=== PATIENT | female | born 1945 | race Caucasian/White ===

== ENCOUNTER 2022-11-20 01:23 | Outpatient (REF) | payer MEDICARE, MEDICAID, SELFPAY ==
[2022-11-20 07:52] LABS: Basophils Percent Auto 0.5 % (0.2-2.0); Eosinophils Absolute Auto 0.3 10^3/uL (0.0-0.7); Eosinophils Percent Auto 5.7 % (0.9-7.0); Hematocrit 40.2 % (36.0-48.0); Hemoglobin 12.9 g/dL (12.0-16.0); Immature Granulocytes Abs Auto 0.01 10^3/uL (0.00-0.03); Immature Granulocytes Pct Auto 0.2 % (0.0-0.5); Lymphocytes Absolute Auto 1.4 10^3/uL (1.2-3.8); Mean Corpuscular HGB Conc 32.1 g/dL (29.9-35.2); Mean Corpuscular Hemoglobin 30.9 pg (26.7-34.0); Mean Corpuscular Volume 96.4 fL (81.0-99.0); Mean Platelet Volume 11.1 fL (9.5-13.5); Monocytes Absolute Auto 0.5 10^3/uL (0.3-0.8); Monocytes Percent Auto 11.5 % (1.7-12.0); Neutrophils Absolute Auto 2.2 10^3/uL (1.4-6.5); Neutrophils Percent Auto 51.1 % (43.0-75.0); Platelet Count 225 10^3/uL (150-450); Red Blood Count 4.17 10^6/uL (4.20-5.40); Red Cell Distribution Width 13.7 % (11.0-15.0); White Blood Count 4.4 10^3/uL (4.0-11.0)
[2022-11-20 08:59] LABS: Anion Gap 10.6; BUN Creatinine Ratio 18.9; Carbon Dioxide 28.6 mmol/L (21.0-32.0); Chloride 106 mmol/L (98-107); Estimated GFR (African America >60 (>=60); Estimated GFR (Non-African Ame 57 (>=60); Glucose 92 mg/dL (74-106); Potassium 4.2 mmol/L (3.5-5.1); Sodium 141 mmol/L (136-145)
== END 2022-11-20 01:24 | disposition home or self-care (01) ==
LOC: LAB 01:23
PROVIDERS: PCP Family Medicine; Visit Provider Family Medicine
DX: R60.0 Localized edema (principal); R27.9 Unspecified lack of coordination; R26.2 Difficulty in walking, not elsewhere classified; R41.841 Cognitive communication deficit; R13.12 Dysphagia, oropharyngeal phase; M54.50 Low back pain, unspecified; R29.3 Abnormal posture; F02.C2 Dementia in other diseases classified elsewhere, severe, with psychotic disturbance; E44.1 Mild protein-calorie malnutrition
CPT/HCPCS: 36415; 80048; 83880; 85025

== ENCOUNTER 2023-05-02 08:58 | Outpatient (REF) | payer MEDICARE, MEDICAID, SELFPAY ==
[2023-05-02 10:38] LABS: Bilirubin Urine MODERATE (NEGATIVE); Blood Urine TRACE-I (NEGATIVE); Clarity Urine CLEAR (CLEAR); Color Urine DK. YELLOW (YELLOW); Glucose Urine UA NEGATIVE (NEGATIVE); Ketones Urine TRACE mg/dL (NEGATIVE); Leukocyte Esterase Urine NEGATIVE (NEGATIVE); Nitrite Urine NEGATIVE (NEGATIVE); Protein Urine 30 mg/dL (NEG/TRACE); Specific Gravity Urine >=1.030 (1.005-1.025); Urobilinogen Urine 0.2 EU/dL (0.2-1.0); pH Urine 5.5 (5.0-9.0)
[2023-05-02 10:39] LABS: Urine Microscopic Indicated YES
[2023-05-02 11:14] LABS: Bacteria Urine NONE SEEN #/HPF (NONE SEEN); Mucus Urine LARGE (NONE SEEN); Squamous Epithelial Cell Urine FEW #/LPF (NONE/RARE); WBC Urine 0-2 #/HPF (NONE SEEN)
[2023-05-02 11:15] LABS: Urine Culture Indicated NO
== END 2023-05-02 08:59 | disposition home or self-care (01) ==
LOC: LAB 08:58
PROVIDERS: PCP Family Medicine; Visit Provider Family Medicine
DX: R41.82 Altered mental status, unspecified (principal)
CPT/HCPCS: 81001

== ENCOUNTER 2023-09-17 00:59 | Outpatient (REF) | payer MEDICARE, MEDICAID, SELFPAY ==
--- OUTSIDE RECORDS SUMMARY | 2023-09-17 01:02 | XMS_ITS | CCD ---
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 Name Role Phone DR ESE GOLDBERG Primary Care Unavailable DR ESE GOLDBERG Admitting Unavailable DIAZ, DR ESE Garza Attending Unavailable DIAZ, DR ESE Garza Consulting Unavailable DR ESE GOLDBERG Primary Care Unavailable LOLA RAMIRES Admitting Unavailable LOLA RAMIRES Attending LOLA Gomez Consulting Unavailable DR ESE GOLDBERG Primary Care Unavailable DR ESE GOLDBERG Admitting Unavailable DIAZ, DR ESE Garza Attending Unavailable DIAZ, DR ESE Garza Consulting Unavailable Ese Goldberg Allergies Allergy Classification Reported Allergen(s) Allergy Type Date of Onset Reaction(s) Facility (1 source) Penicillins Drug allergy (disorder) 11-16-2014 [facility] Medications Current Medications Medication Drug Class(es) Dates Sig (Normalized) Sig (Original) [facility] Aspirin 81 MG (8 sources) take 1 tablet by mouth once daily clonazePAM 0.5 mg oral tablet (8 sources) Benzodiazepine Start: 05-16-2023 clonazePAM 0.5 MG 0.25mg po qam and 0.5mg po qhs Orally BID for 30 days May, Active Start: 03-14-2023 clonazePAM 0.5 MG 0.25mg po qam and 0.5mg po qhs Orally BID Mar, Active Start: 02-07-2023 clonazePAM 0.5 MG 0.25mg po qam and 0.5mg po qhs Orally BID Feb, Active Start: 10-04-2022 clonazePAM 0.5 MG 0.25mg po qam and 0.5mg po qhs Orally BID for 30 days September, Active losartan potassium 50 mg oral tablet (8 sources) Angiotensin 2 Receptor Marichuy Start: 11-09-2010 take 1 tablet by mouth every twenty-four hours Losartan Potassium 50 MG 1 tablet Orally Once a day Nov, Active simvastatin 40 mg oral tablet (8 sources) HMG-CoA Reductase Inhibitor Start: 11-09-2010 Problems Problem Classification Problem Date Documented Date Episodic/Chronic Anxiety disorders (9 sources) Generalized anxiety disorder; Translations: [Generalized anxiety disorder] Chronic Disorders of lipid metabolism (12 sources) Hyperlipidemia, unspecified; Translations: [Pure hypercholesterolemia] Onset: 07-19-2022 Chronic Epilepsy; convulsions (8 sources) Seizure disorder; Translations: [Seizure disorder NOS] Episodic Esophageal disorders (8 sources) Gastroesophageal reflux disease; Translations: [GERD [Gastroesophageal reflux disease]] Chronic Essential hypertension (20 sources) Essential (primary) hypertension; Translations: [Hypertensive disorder] Onset: 12-13-2021 Chronic Malaise and fatigue (4 sources) Fatigue; Translations: [Other fatigue] Episodic Mood disorders (15 sources) Recurrent major depression in partial remission; Translations: [Major depressive disorder, recurrent, in partial remission] Chronic Nutritional deficiencies (1 source) Mild protein-calorie malnutrition; Translations: [MILD PROTEIN-CALORIE MALNUTRITION] Onset: 07-24-2022 Chronic Osteoarthritis (8 sources) Osteoarthritis; Translations: [Osteoarthrosis, unspecified whether generalized or localized, site unspecified] Chronic Other skin disorders (8 sources) Inflammatory dermatosis; Translations: [DERMATITIS NEC] Episodic Residual codes; unclassified (4 sources) Edema, unspecified; Translations: [EDEMA UNSPECIFIED] Onset: 12-14-2021 Episodic Schizophrenia and other psychotic disorders (9 sources) Chronic schizoaffective schizophrenia; Translations: [Schizoaffective disorder, unspecified] Chronic Spondylosis; intervertebral disc disorders; other back problems (16 sources) Degeneration of lumbar intervertebral disc; Translations: [DDD-Lumbar spine] Chronic Spondylosis; intervertebral disc disorders; other back problems (8 sources) Backache; Translations: [Back Pain] Episodic Unclassified (1 source) COUGH, UNSPECIFIED; Translations: [COUGH, UNSPECIFIED] Onset: 12-14-2021 Results Test Name Value Interpretation Reference Range Facil ity CBC AUTO DIFFon 08-18-2022 BASO # 0.0 103/ul Normal 0.0-0.1 [facility] Comment on above: Performed By: #### C BC #### [facility] [address] [place] [address] Dr. Donovan Curtis Basophils/100 WBC (Bld) 0.6 % Normal 0.2-2.0 [facility] Comment on above: Performed By: #### C BC #### [facility] [address] [place] [address] Dr. Donovan Curtis EO # 0.3 103/ul Normal 0.0-0.7 [facility] Comment on above: Performed By: #### C BC #### [facility] [address] [place] [address] Dr. Donovan Curtis Eosinophils/100 WBC (Bld) 6.3 % Normal 0.9-7.0 [facility] Comment on above: Performed By: #### C BC #### [facility] [address] [place] [address] Dr. Donovan Curtis Erythrocyte distribution width (RBC) [Ratio] 13.7 % Normal 11.0-15.0 [facility] Comment on above: Performed By: #### C BC #### [facility] [address] [place] [address] Dr. Donovan Curtis Hematocrit (Bld) [Volume fraction] 41.0 % Normal 36.0-48.0 [facility] Comment on above: Performed By: #### C BC #### [facility] [address] [place] [address] Dr. Donovan Curtis Hemoglobin (Bld) [Mass/Vol] 13.1 g/dL Normal 12.0-16.0 [facility] Comment on above: Performed By: #### C BC #### [facility] [address] [place] [address] Dr. Donovan Curtis IG # 0.01 10e3/ul Normal 0.00-0.03 [facility] Comment on above: Performed By: #### C BC #### [facility] [address] [place] [address] Dr. Donovan Curtis IG % 0.2 % Normal 0.0-0.5 [facility] Comment on above: Performed By: #### C BC #### [facility] [address] [place] [address] Dr. Donovan Curtis LYMPH # 1.3 103/ul Normal 1.2-3.8 [facility] Comment on above: Performed By: #### C BC #### [facility] [address] [place] [address] Dr. Donovan Curtis Lymphocytes/100 WBC (Bld) 25.6 % Normal 20.5-60.0 [facility] Comment on above: Performed By: #### C BC #### [facility] [address] [place] [address] Dr. Donovan Curtis MANUAL DIFF REQ NO Normal [facility] Comment on above: Performed By: #### C BC #### [facility] [address] [place] [address] Dr. Donovan Curtis MCH (RBC) [Entitic mass] 30.9 pg Normal 26.7-34.0 [facility] Comment on above: Performed By: #### C BC #### [facility] [address] [place] [address] Dr. Donovan Curtis MCHC (RBC) [Mass/Vol] 32.0 g/dL Normal 29.9-35.2 [facility] Comment on above: Performed By: #### C BC #### [facility] [address] [place] [address] Dr. Donovan Curtis MCV (RBC) [Entitic vol] 96.7 fL Normal 81.0-99.0 [facility] Comment on above: Performed By: #### C BC #### [facility] [address] [place] [address] Dr. Donovan Curtis MONO # 0.6 103/ul Normal 0.3-0.8 [facility] Comment on above: Performed By: #### C BC #### [facility] [address] [place] [address] Dr. Donovan Curtis Monocytes/100 WBC (Bld) 11.2 % Normal 1.7-12.0 [facility] Comment on above: Performed By: #### C BC #### [facility] [address] [place] [address] Dr. Donovan Curtis NEUT # 2.8 103/ul Normal 1.4-6.5 [facility] Comment on above: Performed By: #### C BC #### [facility] [address] [place] [address] Dr. Donovan Curtis Neutrophils/100 WBC (Bld) 56.1 % Normal 43.0-75.0 [facility] Comment on above: Performed By: #### C BC #### [facility] [address] [place] [address] Dr. Donovan Curtis Platelet mean volume (Bld) [Entitic vol] 11.9 fL Normal 9.5-13.5 [facility] Comment on above: Performed By: #### C BC #### [facility] [address] [place] [address] Dr. Donovan Curtis PLT 221 103/ul Normal 150-450 [facility] Comment on above: Performed By: #### C BC #### [facility] [address] [place] [address] Dr. Donovan Curtis RBC 4.24 106/ul Normal 4.20-5.40 [facility] Comment on above: Performed By: #### C BC #### [facility] [address] [place] [address] Dr. Donovan Curtis WBC 5.1 103/ul Normal 4.0-11.0 [facility] Comment on above: Performed By: #### C BC #### [facility] [address] [place] [address] Dr. Donovan Curtis PROF CHEM 8 (BAS METB)on Anion gap [Moles/Vol] 14.8 mmol/L Normal [facility] Comment on above: Performed By: #### B MP #### [facility] [address] [place] [address] Dr. Donovan Curtis Calcium [Mass/Vol] 10.1 mg/dL Normal 8.5-10.1 [facility] Comment on above: Performed By: #### B MP #### [facility] [address] [place] [address] Dr. Donovan Curtis Chloride [Moles/Vol] 105 mmol/L Normal 98-107 [facility] Comment on above: Performed By: #### B MP #### [facility] [address] [address] [address] Donovan Curtis CO2 [Moles/Vol] 26.2 mmol/L Normal 21.0-32.0 [facility] Comment on above: Performed By: #### B MP #### [facility] [address] [address] [address] Donovan Curtis Creatinine [Mass/Vol] 1.05 mg/dL Critically high 0.55-1.02 [facility] Comment on above: Performed By: #### B MP #### [facility] [address] [address] [address] Donovan Curtis EGFR-AF CYPRIOT >60 Normal >=60 [facility] Comment on above: Performed By: #### B MP #### [facility] [address] [address] [address] Donovan Curtis EGFR-NON AF CYPRIOT 51 mL/min/1.73m2 Critically low >=60 [facility] Comment on above: Performed By: #### B MP #### [facility] [address] [address] [address] Donovan Curtis Glucose [Mass/Vol] 89 mg/dL Normal 74-106 [facility] Comment on above: Performed By: #### B MP #### [facility] [address] [address] [address] Donovan Curtis Potassium [Moles/Vol] 4.0 mmol/L Normal 3.5-5.1 [facility] Comment on above: Performed By: #### B MP #### [facility] [address] [address] [address] Donovan Curtis Sodium [Moles/Vol] 142 mmol/L Normal 136-145 [facility] Comment on above: Performed By: #### B MP #### [facility] [address] [address] [address] Donovan Curtis Urea nitrogen [Mass/Vol] 18.0 mg/dL Normal 7.0-18.0 [facility] Comment on above: Performed By: #### B MP #### [facility] [address] [place] [address] Dr. Donovan Curtis Urea nitrogen/Creatinine [Mass ratio] 17.1 mg/mg Normal [facility] Comment on above: Performed By: #### B MP #### [facility] [address] [place] [address] Dr. Donovan Curtis CBC AUTO DIFFon 07-19-2022 BASO # 0.0 103/ul Normal 0.0-0.1 [facility] Comment on above: Performed By: #### C BC #### [facility] [address] [place] [address] Dr. Donovan Curtis Basophils/100 WBC (Bld) 0.6 % Normal 0.2-2.0 [facility] Comment on above: Performed By: #### C BC #### [facility] [address] [place] [address] Dr. Donovan Curtis EO # 0.3 103/ul Normal 0.0-0.7 [facility] Comment on above: Performed By: #### C BC #### [facility] [address] [place] [address] Dr. Donovan Curtis Eosinophils/100 WBC (Bld) 5.1 % Normal 0.9-7.0 [facility] Comment on above: Performed By: #### C BC #### [facility] [address] [place] [address] Dr. Donovan Curtis Erythrocyte distribution width (RBC) [Ratio] 13.8 % Normal 11.0-15.0 [facility] Comment on above: Performed By: #### C BC #### [facility] [address] [place] [address] Dr. Donovan Crutis Hematocrit (Bld) [Volume fraction] 34.5 % Critically low 36.0-48.0 [facility] Comment on above: Performed By: #### C BC #### [facility] [address] [place] [address] Dr. Donovan Curtis Hemoglobin (Bld) [Mass/Vol] 11.4 g/dL Critically low 12.0-16.0 [facility] Comment on above: Performed By: #### C BC #### [facility] [address] [address] [address] Donovan Curtis IG # 0.01 10e3/ul Normal 0.00-0.03 [facility] Comment on above: Performed By: #### C BC #### [facility] [address] [place] [address] Dr. Donovan Curtis IG % 0.2 % Normal 0.0-0.5 [facility] Comment on above: Performed By: #### C BC #### [facility] [address] [place] [address] Dr. Donovan Curtis LYMPH # 1.5 103/ul Normal 1.2-3.8 [facility] Comment on above: Performed By: #### C BC #### [facility] [address] [place] [address] Dr. Donovan Curtis Lymphocytes/100 WBC (Bld) 29.8 % Normal 20.5-60.0 [facility] Comment on above: Performed By: #### C BC #### [facility] [address] [place] [address] Dr. Donovan Curtis MANUAL DIFF REQ NO Normal [facility] Comment on above: Performed By: #### C BC #### [facility] [address] [place] [address] Dr. Donovan Curtis MCH (RBC) [Entitic mass] 31.1 pg Normal 26.7-34.0 [facility] Comment on above: Performed By: #### C BC #### [facility] [address] [place] [address] Dr. Donovan Curtis MCHC (RBC) [Mass/Vol] 33.0 g/dL Normal 29.9-35.2 [facility] Comment on above: Performed By: #### C BC #### [facility] [address] [place] [address] Dr. Donovan Curtis MCV (RBC) [Entitic vol] 94.0 fL Normal 81.0-99.0 [facility] Comment on above: Performed By: #### C BC #### [facility] [address] [address] [address] Donovan Curtis MONO # 0.7 103/ul Normal 0.3-0.8 [facility] Comment on above: Performed By: #### C BC #### [facility] [address] [place] [address] Dr. Donovan Curtis Monocytes/100 WBC (Bld) 13.6 % Critically high 1.7-12.0 [facility] Comment on above: Performed By: #### C BC #### [facility] [address] [place] [address] Dr. Donovan Curtis NEUT # 2.5 103/ul Normal 1.4-6.5 [facility] Comment on above: Performed By: #### C BC #### [facility] [address] [place] [address] Dr. Donovan Curtis Neutrophils/100 WBC (Bld) 50.7 % Normal 43.0-75.0 [facility] Comment on above: Performed By: #### C BC #### [facility] [address] [place] [address] Dr. Donovan Curtis Platelet mean volume (Bld) [Entitic vol] 11.3 fL Normal 9.5-13.5 [facility] Comment on above: Performed By: #### C BC #### [facility] [address] [place] [address] Dr. Donovan Curtis PLT 179 103/ul Normal 150-450 [facility] Comment on above: Performed By: #### C BC #### [facility] [address] [place] [address] Dr. Donovan Curtis RBC 3.67 106/ul Critically low 4.20-5.40 [facility] Comment on above: Performed By: #### C BC #### [facility] [address] [place] [address] Dr. Donovan Curtis WBC 4.9 103/ul Normal 4.0-11.0 [facility] Comment on above: Performed By: #### C BC #### [facility] [address] [place] [address] Dr. Donovan Curtis LIPID PROFILEon 07-19-2022 CHOL-HDL RATIO NORM SEE BELOW Normal [facility] Comment on above: Result Comment: 3.3 - 4.4 LOW RISK 4.4 - 7.1 AVERAGE RISK 7.1 - 11.0 MODERATE RISK >11.0 HIGH RISK Performed By: #### L IPID, CMP #### [facility] [address] [address] [address] Donovan Curtis Cholesterol [Mass/Vol] 105 mg/dL Normal <=200 [facility] Comment on above: Performed By: #### L IPID, CMP #### [facility] [address] [address] [address] Donovan Curtis Cholesterol in HDL [Mass/Vol] 45 mg/dL Normal 40-60 [facility] Comment on above: Performed By: #### L IPID, CMP #### [facility] [address] [address] [address] Donovan Curtis Cholesterol in LDL [Mass/Vol] 42.2 mg/dL Normal [facility] Comment on above: Performed By: #### L IPID, CMP #### [facility] [address] [address] [address] Donovan Curtis Cholesterol.total/C holesterol in HDL [Mass ratio] 2.3 {ratio} Normal [facility] Comment on above: Performed By: #### L IPID, CMP #### [facility] [address] [address] [address] Donovan Curtis HDL NORMAL > or = 60 mg/dl - LO W CARDIOVASCULAR RISK <40 mg/dl - HIGH CARDIOVASCULAR RISK Normal [facility] Comment on above: Performed By: #### L IPID, CMP #### [facility] [address] [address] [address] Donovan Curtis LDL CALC NORMAL SEE BELOW Normal [facility] Comment on above: Result Comment: <100 mg/dl OPTIMAL 100 - 129 mg/dl NEAR OR ABOVE OPTIMAL 130 - 159 mg/dl BORDERLINE HIGH 160 - 189 mg/dl HIGH >190 mg/dl VERY HIGH Performed By: #### L IPID, CMP #### [facility] [address] [address] [address] Donovan Curtis Triglyceride [Mass/Vol] 89 mg/dL Normal <=150 [facility] Comment on above: Performed By: #### L IPID, CMP #### [facility] [address] [place] [address] Dr. Donovan Curtis VLDL CALC 17.8 mg/dL Normal [facility] Comment on above: Performed By: #### L IPID, CMP #### [facility] [address] [place] [address] Dr. Donovan Curtis PROF 14(COMP METB)on 023 Albumin [Mass/Vol] 3.1 g/dL Critically low 3.4-5.0 [facility] Comment on above: Performed By: #### L IPID, CMP #### [facility] [address] [place] [address] Dr. Donovan Curtis Albumin/Globulin [Mass ratio] 1.1 {ratio} Normal [facility] Comment on above: Performed By: #### L IPID, CMP #### [facility] [address] [place] [address] Dr. Donovan Curtis ALP [Catalytic activity/Vol] 66 U/L Normal 46-116 [facility] Comment on above: Performed By: #### L IPID, CMP #### [facility] [address] [place] [address] Dr. Donovan Curtis ALT [Catalytic activity/Vol] 16 U/L Normal 14-59 [facility] Comment on above: Performed By: #### L IPID, CMP #### [facility] [address] [place] [address] Dr. Donovan Curtis Anion gap [Moles/Vol] 12.5 mmol/L Normal [facility] Comment on above: Performed By: #### L IPID, CMP #### [facility] [address] [place] [address] Dr. Donovan Curtis AST [Catalytic activity/Vol] 23 U/L Normal 15-37 [facility] Comment on above: Performed By: #### L IPID, CMP #### [facility] [address] [place] [address] Dr. Donovan Curtis Bilirubin [Mass/Vol] 1.0 mg/dL Normal 0.2-1.0 [facility] Comment on above: Performed By: #### L IPID, CMP #### [facility] [address] [address] [address] Donovan Curtis Calcium [Mass/Vol] 9.8 mg/dL Normal 8.5-10.1 [facility] Comment on above: Performed By: #### L IPID, CMP #### [facility] [address] [place] [address] Dr. Donovan Curtis Chloride [Moles/Vol] 109 mmol/L Critically high 98-107 [facility] Comment on above: Performed By: #### L IPID, CMP #### [facility] [address] [place] [address] Dr. oDnovan Curtis CO2 [Moles/Vol] 26.8 mmol/L Normal 21.0-32.0 [facility] Comment on above: Performed By: #### L IPID, CMP #### [facility] [address] [place] [address] Dr. Donovan Curtis Creatinine [Mass/Vol] 0.92 mg/dL Normal 0.55-1.02 [facility] Comment on above: Performed By: #### L IPID, CMP #### [facility] [address] [place] [address] Dr. Donovan Curtis EGFR-AF CYPRIOT >60 Normal >=60 [facility] Comment on above: Performed By: #### L IPID, CMP #### [facility] [address] [place] [address] Dr. Donovan Curtis EGFR-NON AF CYPRIOT 59 mL/min/1.73m2 Critically low >=60 [facility] Comment on above: Performed By: #### L IPID, CMP #### [facility] [address] [place] [address] Dr. Donovan Curtis Globulin (S) [Mass/Vol] 2.7 g/dL Normal [facility] Comment on above: Performed By: #### L IPID, CMP #### [facility] [address] [place] [address] Dr. Donovan Curtis Glucose [Mass/Vol] 87 mg/dL Normal 74-106 [facility] Comment on above: Performed By: #### L IPID, CMP #### [facility] [address] [place] [address] Dr. Donovan Curtis Potassium [Moles/Vol] 4.3 mmol/L Normal 3.5-5.1 [facility] Comment on above: Performed By: #### L IPID, CMP #### [facility] [address] [place] [address] Dr. Donovan Curtis Protein [Mass/Vol] 5.8 g/dL Critically low 6.4-8.2 [facility] Comment on above: Performed By: #### L IPID, CMP #### [facility] [address] [place] [address] Dr. Donovan Curtis Sodium [Moles/Vol] 144 mmol/L Normal 136-145 [facility] Comment on above: Performed By: #### L IPID, CMP #### [facility] [address] [place] [address] Dr. Donovan Curtis Urea nitrogen [Mass/Vol] 22.0 mg/dL Critically high 7.0-18.0 [facility] Comment on above: Performed By: #### L IPID, CMP #### [facility] [address] [place] [address] Dr. Donovan Curtis Urea nitrogen/Creatinine [Mass ratio] 23.9 mg/mg Normal [facility] Comment on above: Performed By: #### L IPID, CMP #### [facility] [address] [place] [address] Dr. Donovan Curtis BNPon 12-13-2021 Natriuretic peptide B (Bld) [Mass/Vol] 190.0 pg/mL Normal <=1,800.0 [facility] Comment on above: Performed By: #### B FLOW MANAGER, BMP #### [facility] [address] [place] [address] Dr. Donovan Curtis CBC AUTO DIFFon 12-13-2021 BASO # 0.0 103/ul Normal 0.0-0.1 [facility] Comment on above: Performed By: #### C BC #### [facility] [address] [place] [address] Dr. Donovan Curtis Basophils/100 WBC (Bld) 0.5 % Normal 0.2-2.0 [facility] Comment on above: Performed By: #### C BC #### [facility] [address] [place] [address] Dr. Donovan Curtis EO # 0.2 103/ul Normal 0.0-0.7 [facility] Comment on above: Performed By: #### C BC #### [facility] [address] [place] [address] Dr. Donovan Curtis Eosinophils/100 WBC (Bld) 2.9 % Normal 0.9-7.0 [facility] Comment on above: Performed By: #### C BC #### [facility] [address] [place] [address] Dr. Donovan Curtis Erythrocyte distribution width (RBC) [Ratio] 14.1 % Normal 11.0-15.0 [facility] Comment on above: Performed By: #### C BC #### [facility] [address] [place] [address] Dr. Donovan Curtis Hematocrit (Bld) [Volume fraction] 42.0 % Normal 36.0-48.0 [facility] Comment on above: Performed By: #### C BC #### [facility] [address] [place] [address] Dr. Donovan Curtis Hemoglobin (Bld) [Mass/Vol] 13.1 g/dL Normal 12.0-16.0 [facility] Comment on above: Performed By: #### C BC #### [facility] [address] [place] [address] Dr. Donovan Curtis IG # 0.01 10e3/ul Normal 0.00-0.03 [facility] Comment on above: Performed By: #### C BC #### [facility] [address] [place] [address] Dr. Donovan Curtis IG % 0.2 % Normal 0.0-0.5 [facility] Comment on above: Performed By: #### C BC #### [facility] [address] [place] [address] Dr. Donovan Curtis LYMPH # 1.2 103/ul Normal 1.2-3.8 [facility] Comment on above: Performed By: #### C BC #### [facility] [address] [place] [address] Dr. Donovan Curtis Lymphocytes/100 WBC (Bld) 20.5 % Normal 20.5-60.0 [facility] Comment on above: Performed By: #### C BC #### [facility] [address] [place] [address] Dr. Donovan Curtis MANUAL DIFF REQ NO Normal [facility] Comment on above: Performed By: #### C BC #### [facility] [address] [place] [address] Dr. Donovan Curtis MCH (RBC) [Entitic mass] 29.7 pg Normal 26.7-34.0 [facility] Comment on above: Performed By: #### C BC #### [facility] [address] [place] [address] Dr. Donovan Curtis MCHC (RBC) [Mass/Vol] 31.2 g/dL Normal 29.9-35.2 [facility] Comment on above: Performed By: #### C BC #### [facility] [address] [place] [address] Dr. Donovan Curtis MCV (RBC) [Entitic vol] 95.2 fL Normal 81.0-99.0 [facility] Comment on above: Performed By: #### C BC #### [facility] [address] [place] [address] Dr. Donovan Curtis MONO # 0.7 103/ul Normal 0.3-0.8 [facility] Comment on above: Performed By: #### C BC #### [facility] [address] [place] [address] Dr. Donovan Curtis Monocytes/100 WBC (Bld) 11.7 % Normal 1.7-12.0 [facility] Comment on above: Performed By: #### C BC #### [facility] [address] [place] [address] Dr. Donovan Curtis NEUT # 3.7 103/ul Normal 1.4-6.5 [facility] Comment on above: Performed By: #### C BC #### [facility] [address] [place] [address] Dr. Donovan Curtis Neutrophils/100 WBC (Bld) 64.2 % Normal 43.0-75.0 [facility] Comment on above: Performed By: #### C BC #### [facility] [address] [place] [address] Dr. Donovan Curtis Platelet mean volume (Bld) [Entitic vol] 11.2 fL Normal 9.5-13.5 [facility] Comment on above: Performed By: #### C BC #### [facility] [address] [place] [address] Dr. Donovan Curtis PLT 240 103/ul Normal 150-450 [facility] Comment on above: Performed By: #### C BC #### [facility] [address] [place] [address] Dr. Donovan Curtis RBC 4.41 106/ul Normal 4.20-5.40 [facility] Comment on above: Performed By: #### C BC #### [facility] [address] [place] [address] Dr. Donovan Curtis WBC 5.8 103/ul Normal 4.0-11.0 [facility] Comment on above: Performed By: #### C BC #### [facility] [address] [place] [address] Dr. Donovan Curtis PROF CHEM 8 (BAS METB)on Anion gap [Moles/Vol] 13.7 mmol/L Normal [facility] Comment on above: Performed By: #### B FLOW MANAGER, BMP #### [facility] [address] [place] [address] Dr. Donovan Curtis Calcium [Mass/Vol] 10.3 mg/dL Critically high 8.5-10.1 [facility] Comment on above: Performed By: #### B FLOW MANAGER, BMP #### [facility] [address] [address] [address] Donovan Curtis Chloride [Moles/Vol] 104 mmol/L Normal 98-107 [facility] Comment on above: Performed By: #### B FLOW MANAGER, BMP #### [facility] [address] [address] [address] Donovan Curtis CO2 [Moles/Vol] 26.6 mmol/L Normal 21.0-32.0 [facility] Comment on above: Performed By: #### B FLOW MANAGER, BMP #### [facility] [address] [address] [address] Donovan Curtis Creatinine [Mass/Vol] 1.04 mg/dL Critically high 0.55-1.02 [facility] Comment on above: Performed By: #### B FLOW MANAGER, BMP #### [facility] [address] [address] [address] Donovan Curtis EGFR-AF CYPRIOT >60 Normal >=60 [facility] Comment on above: Performed By: #### B FLOW MANAGER, BMP #### [facility] [address] [address] [address] Donovan Curtis EGFR-NON AF CYPRIOT 51 mL/min/1.73m2 Critically low >=60 [facility] Comment on above: Performed By: #### B FLOW MANAGER, BMP #### [facility] [address] [address] [address] Donovan Curtis Glucose [Mass/Vol] 74 mg/dL Normal 74-106 [facility] Comment on above: Performed By: #### B FLOW MANAGER, BMP #### [facility] [address] [address] [address] Donovan Curtis Potassium [Moles/Vol] 4.3 mmol/L Normal 3.5-5.1 [facility] Comment on above: Performed By: #### B FLOW MANAGER, BMP #### [facility] [address] [address] [address] Donovan Curtis Sodium [Moles/Vol] 140 mmol/L Normal 136-145 [facility] Comment on above: Performed By: #### B FLOW MANAGER, BMP #### [facility] [address] [place], [place] [address] Dr. Donovan Curtis Urea nitrogen [Mass/Vol] 19.0 mg/dL Critically high 7.0-18.0 [facility] Comment on above: Performed By: #### B FLOW MANAGER, BMP #### [facility] [address] [place], [place] [address] Dr. Donovan Curtis Urea nitrogen/Creatinine [Mass ratio] 18.3 mg/mg Normal [facility] Comment on above: Performed By: #### B FLOW MANAGER, BMP #### [facility] [address] [place], [place] [address] Dr. Donovan Curtis Encounters Encounter Date Encounter Type Care Provider Facility Start: 05-18-2023 End: 05-18-2023 ambulatory Ese Goldberg Other [facility] Other Start: 05-18-2023 Telephone encounter Ese Goldberg [facility] Start: 05-16-2023 End: 05-16-2023 ambulatory Ese Goldberg Other [facility] Other Start: 05-16-2023 Telephone encounter Ese Goldberg [facility] Start: 05-01-2023 End: 05-01-2023 ambulatory Ese Goldberg Other [facility] Other Start: 05-01-2023 Sbsq nursing facil care/day minor complj 15 min Ese Goldberg [facility] Start: 03-14-2023 End: 03-14-2023 ambulatory Ese Goldberg Other [facility] Other Start: 03-14-2023 Telephone encounter Ese Goldberg [facility] Start: 02-13-2023 End: 02-13-2023 ambulatory Ese Goldberg Other [facility] Other Start: 02-13-2023 Sbsq nursing facil care/day minor complj 15 min Ese Goldberg [facility] Start: 02-07-2023 End: 02-07-2023 ambulatory Ese Goldberg Other [facility] Other Start: 02-07-2023 Telephone encounter Ese Goldberg [facility] Start: 11-29-2022 End: 11-29-2022 ambulatory Ese Goldberg Other [facility] Other Start: 11-29-2022 Sbs nursing facil care/day minor complj 15 min Ese Goldberg [facility] Start: 08-18-2022 End: 08-18-[address] ESE GOLDBERG Facility:[facility] Start: 07-19-2022 End: 07-19-[address] ESE GOLDBERG Facility:[facility] Start: 12-13-2021 End: 12-13-[address] ESE GOLDBERG Facility:[facility] Payers Date Payer Category Payer Medicare [id number] 1960 Medicaid [id number] 1960 Medicare [id number] 1945 Unknown [id number] 1945 Unknown [id number] 1945 Unknown [id number] Social History Date Type Detail Facility Sex Assigned At [facility] Other Evaluation note 05-18-2023 Note Date & Type Note Facility 05-18-2023 Evaluation note Encounter Date Diagnosis Assessment Notes May, Recurrent major depressive disorder, in partial remission (ICD-10 - F33.41) [facility] Other Evaluation note 05-16-2023 Note Date & Type Note Facility 05-16-2023 Evaluation note Encounter Date Diagnosis Assessment Notes May, Recurrent major depressive disorder, in partial remission (ICD-10 - F33.41) [facility] Other Evaluation note 05-01-2023 Note Date & Type Note Facility 05-01-2023 Evaluation note Encounter Date Diagnosis Assessment Notes Apr, Essential (primary) hypertension (ICD-10 - I10) Continue present med Apr, Other fatigue (ICD-10 - R53.83) d/w w nursing staff. Will check for COVID and UTI Apr, Recurrent major depressive disorder, in partial remission (ICD-10 - F33.41) stable on present med [facility] Other Evaluation note 03-14-2023 Note Date & Type Note Facility 03-14-2023 Evaluation note Encounter Date Diagnosis Assessment Notes Mar, Recurrent major depressive disorder, in partial remission (ICD-10 - F33.41) [facility] Other Evaluation note 02-13-2023 Note Date & Type Note Facility 02-13-2023 Evaluation note Encounter Date Diagnosis Assessment Notes Feb, Essential (primary) hypertension (ICD-10 - I10) Blood pressure remains well controlled at this time. Denies cardiac symptoms. Shows no signs or symptoms or poor control. Patient to continue with above medication and we will continue to monitor. Advised to pay attention to body and symptoms. Any developing patterns. Stay well hydrated. Feb, Recurrent major depressive disorder, in partial remission (ICD-10 - F33.41) Remains stable on current therapeutic dose. Patient is encouraged to stay active and remain involved. Try to keep themselves busy. Take medication as directed and we will continue to monitor. Feb, Dependent edema (ICD-10 - R60.9) Elevated legs. Reviewed medications at [facility]. [facility] Other Evaluation note 11-29-2022 Note Date & Type Note Facility 11-29-2022 Evaluation note Encounter Date Diagnosis Assessment Notes Nov, Chronic schizoaffective disorder (ICD-10 - F25.9) stable and unchanged. Nov, YANELIS (generalized anxiety disorder) (ICD-10 - F41.1) Unchanged with behaviors per nursing staff. Nov, Essential (primary) hypertension (ICD-10 - I10) Reviewed recent labs. Recheck in 6 months. Nov, Recurrent major depressive disorder, in partial remission (ICD-10 - F33.41) Stable on present medication Nov, Dependent edema (ICD-10 - R60.9) Recently evaluated labs and they are normal overall. Continue to encourage elevation. On moderate strength diuretic. [facility] Other Evaluation note Note Date & Type Note Facility Evaluation note No Information [facility] Other History general Narrative - Reported Note Date & Type Note Facility History general Narrative - Reported Type Medical History Borderline DM Medical History Hyperlipids Medical History HTN Medical History GERD Medical History Seizures Medical History DJD Surgical History oophorectomy 2004 [facility] Other Summary Purpose Family History No Family History Records Found Advance Directives No Advanced Directives Records Found Additional Source Comments INFORMATION SOURCE (unrecogn ized section and content) DATE CREATED AUTHOR 08/18/2022 [facility] REASON FOR VISIT (unrecogniz ed section and content) BCCrefillBCCBCCNo Informatio nBCCNo Informationrefill FOR RECORDS PERTAINING TO PATIENTS WHO ARE OR HAVE BEEN ENROLLED IN A CHEMICAL DEPENDENCY/SUBSTANCEABUSE PROGRAM, SOME INFORMATION MAY BE OMITTED. This clinical summary was aggregated from multiple sources. Caution should be exercised in using it in the provision of clinical care. This summary normalizes information from multiple sources, and as a consequence, information in this document may materially change the coding, format and clinical context of patient data. In addition, data may be omitted in some cases. CLINICAL DECISIONS SHOULD BE BASED ON THE PRIMARY CLINICAL RECORDS. [employer] provides no warranty or guarantee of the accuracy or completeness of information in this document.
[2023-09-17 09:02] LABS: Anion Gap 10.9; BUN Creatinine Ratio 23.2; Calcium 10.1 mg/dL (8.5-10.1); Carbon Dioxide 27.5 mmol/L (21.0-32.0); Chloride 107 mmol/L (98-107); Estimated GFR (African America >60 (>=60); Estimated GFR (Non-African Ame 54 (>=60); Glucose 85 mg/dL (74-106); Potassium 4.4 mmol/L (3.5-5.1); Sodium 141 mmol/L (136-145)
== END 2023-09-17 01:00 | disposition home or self-care (01) ==
LOC: LAB 00:59
PROVIDERS: PCP Family Medicine; Visit Provider Family Medicine
DX: I10 Essential (primary) hypertension (principal)
CPT/HCPCS: 36415; 80048

== ENCOUNTER 2023-11-28 08:16 | Outpatient (REF) | payer MEDICARE, MEDICAID, SELFPAY ==
--- OUTSIDE RECORDS SUMMARY | 2023-11-28 08:30 | XMS_ITS | CCD ---
Author Organization [facility] Care Team Providers Care Reiki Practitioner Name Role Phone DR ESE GOLDBERG Primary Care Unavailable ASHLYN, DR ESE Garza Admitting Unavailable ASHLYN, DR ESE Garza Attending Unavailable ASHLNY, DR ESE Garza Consulting Unavailable ASHLYN, DR ESE Garza Primary Care Unavailable LOLA RAMIRES Admitting Unavailable LOLA RAMIRES Attending Unavailable LOLA RAMIRES Consulting Unavailable ASHLYN, DR ESE Garza Primary Care Unavailable ASHLYN, DR ESE Garza Admitting Unavailable ASHLYN, DR ESE Garza Attending Unavailable ASHLYN, DR ESE Garza Consulting Unavailable Ese Goldberg Allergies Allergy Classification Reported Allergen(s) Allergy Type Date of Onset Reaction(s) Facility (1 source) Penicillins Drug allergy (disorder) 11-16-2014 [facility] Repository Medications Current Medications Medication Drug Class(es) [...] 08-18-2022 BASO # 0.0 103/ul Normal 0.0-0.1 [facility] Comment on above: Performed By: #### C BC #### [facility] [address] [place] [address] Dr. Donovan Curtis Basophils/100 WBC (Bld) 0.6 % Normal 0.2-2.0 [facility] Comment on above: Performed By: #### C BC #### [facility] [address] [place] [address] Dr. Donovan Curtis EO # 0.3 103/ul Normal 0.0-0.7 [facility] Comment on above: Performed By: #### C BC #### [facility] [address] [place] [address] Dr. Donovan Curtis Eosinophils/100 WBC (Bld) 6.3 % Normal 0.9-7.0 [facility] Comment on above: Performed By: #### C BC #### [facility] [address] [place] [address] Dr. Donovan Curtis Erythrocyte distribution width (RBC) [Ratio] 13.7 % Normal 11.0-15.0 [facility] Comment on above: Performed By: #### C BC #### [facility] [address] [place] [address] Dr. Donovan Curtis Hematocrit (Bld) [Volume fraction] 41.0 % Normal 36.0-48.0 [facility] Comment on above: Performed By: #### C BC #### [facility] [address] [place] [address] Dr. Donovan Curtis Hemoglobin (Bld) [Mass/Vol] 13.1 g/dL Normal 12.0-16.0 [facility] Comment on above: Performed By: #### C BC #### [facility] [address] [place] [address] Dr. Donovan Curtis IG # 0.01 10e3/ul Normal 0.00-0.03 [facility] Comment on above: Performed By: #### C BC #### [facility] [address] [place] [address] Dr. Donovan Curtis IG % 0.2 % Normal 0.0-0.5 [facility] Comment on above: Performed By: #### C BC #### [facility] [address] [place] [address] Dr. Donovan Curtis LYMPH # 1.3 103/ul Normal 1.2-3.8 [facility] Comment on above: Performed By: #### C BC #### [facility] [address] [place] [address] Dr. Donovan Curtis Lymphocytes/100 WBC (Bld) 25.6 % Normal 20.5-60.0 [facility] Comment on above: Performed By: #### C BC #### [facility] [address] [place] [address] Dr. Donovan Curtis MANUAL DIFF REQ NO Normal [facility] Comment on above: Performed By: #### C BC #### [facility] [address] [place] [address] Dr. Donovan Curtis MCH (RBC) [Entitic mass] 30.9 pg Normal 26.7-34.0 [facility] Comment on above: Performed By: #### C BC #### [facility] [address] [place] [address] Dr. Donovan Curtis MCHC (RBC) [Mass/Vol] 32.0 g/dL Normal 29.9-35.2 [facility] Comment on above: Performed By: #### C BC #### [facility] [address] [place] [address] Dr. Donovan Curtis MCV (RBC) [Entitic vol] 96.7 fL Normal 81.0-99.0 [facility] Comment on above: Performed By: #### C BC #### [facility] [address] [place] [address] Dr. Donovan Curtis MONO # 0.6 103/ul Normal 0.3-0.8 [facility] Comment on above: Performed By: #### C BC #### [facility] [address] [place] [address] Dr. Donovan Curtis Monocytes/100 WBC (Bld) 11.2 % Normal 1.7-12.0 [facility] Comment on above: Performed By: #### C BC #### [facility] [address] [place] [address] Dr. Donovan Curtis NEUT # 2.8 103/ul Normal 1.4-6.5 [facility] Comment on above: Performed By: #### C BC #### [facility] [address] [address] [address] Donovan Curtis Neutrophils/100 WBC (Bld) 56.1 % Normal 43.0-75.0 [facility] Comment on above: Performed By: #### C BC #### [facility] [address] [address] [address] Donovan Curtis Platelet mean volume (Bld) [Entitic vol] 11.9 fL Normal 9.5-13.5 [facility] Comment on above: Performed By: #### C BC #### [facility] [address] [place] [address] Dr. Donovan Curtis PLT 221 103/ul Normal 150-450 [facility] Comment on above: Performed By: #### C BC #### [facility] [address] [place] [address] Dr. Donovan Curtis RBC 4.24 106/ul Normal 4.20-5.40 [facility] Comment on above: Performed By: #### C BC #### [facility] [address] [place] [address] Dr. Donovan Curtis WBC 5.1 103/ul Normal 4.0-11.0 [facility] Comment on above: Performed By: #### C BC #### [facility] [address] [place] [address] Dr. Donovan Curtis PROF CHEM 8 (BAS METB)on Anion gap [Moles/Vol] 14.8 mmol/L Normal [facility] Comment on above: Performed By: #### B MP #### [facility] [address] [place] [address] Dr. Donovan Curtis Calcium [Mass/Vol] 10.1 mg/dL Normal 8.5-10.1 [facility] Comment on above: Performed By: #### B MP #### [facility] [address] [place] [address] Dr. Donovan Curtis Chloride [Moles/Vol] 105 mmol/L Normal 98-107 [facility] Comment on above: Performed By: #### B MP #### [facility] [address] [address] [address] Donovan Curtis CO2 [Moles/Vol] 26.2 mmol/L Normal 21.0-32.0 [facility] Comment on above: Performed By: #### B MP #### [facility] [address] [address] [address] Donovan Curtis Creatinine [Mass/Vol] 1.05 mg/dL Critically high 0.55-1.02 [facility] Comment on above: Performed By: #### B MP #### [facility] [address] [address] [address] Donovan Curtis EGFR-AF SALVADOREAN >60 Normal >=60 [facility] Comment on above: Performed By: #### B MP #### [facility] [address] [address] [address] Donovan Curtis EGFR-NON AF SALVADOREAN 51 mL/min/1.73m2 Critically low >=60 [facility] Comment on above: Performed By: #### B MP #### [facility] [address] [address] [address] Donovan Curtis Glucose [Mass/Vol] 89 mg/dL Normal 74-106 [facility] Comment on above: Performed By: #### B MP #### [facility] [address] [address] [address] Donovan Curtis Potassium [Moles/Vol] 4.0 mmol/L Normal 3.5-5.1 [facility] Comment on above: Performed By: #### B MP #### [facility] [address] [address] [address] Donovan Curtis Sodium [Moles/Vol] 142 mmol/L Normal 136-145 [facility] Comment on above: Performed By: #### B MP #### [facility] [address] [address] [address] Donovan Curtis Urea nitrogen [Mass/Vol] 18.0 mg/dL Normal 7.0-18.0 [facility] Comment on above: Performed By: #### B MP #### [facility] [address] [place] [address] Dr. Donovan Curtis Urea nitrogen/Creatinine [Mass ratio] 17.1 mg/mg Normal [facility] Comment on above: Performed By: #### B MP #### [facility] [address] [place] [address] Dr. Donovan Curtis CBC AUTO DIFFon 07-19-2022 BASO # 0.0 103/ul Normal 0.0-0.1 [facility] Comment on above: Performed By: #### C BC #### [facility] [address] [place] [address] Dr. Donovan Curtis Basophils/100 WBC (Bld) 0.6 % Normal 0.2-2.0 [facility] Comment on above: Performed By: #### C BC #### [facility] [address] [place] [address] Dr. Donovan Curtis EO # 0.3 103/ul Normal 0.0-0.7 [facility] Comment on above: Performed By: #### C BC #### [facility] [address] [place] [address] Dr. Donovan Curtis Eosinophils/100 WBC (Bld) 5.1 % Normal 0.9-7.0 [facility] Comment on above: Performed By: #### C BC #### [facility] [address] [place] [address] Dr. Donovan Curtis Erythrocyte distribution width (RBC) [Ratio] 13.8 % Normal 11.0-15.0 [facility] Comment on above: Performed By: #### C BC #### [facility] [address] [place] [address] Dr. Donovan Curtis Hematocrit (Bld) [Volume fraction] 34.5 % Critically low 36.0-48.0 [facility] Comment on above: Performed By: #### C BC #### [facility] [address] [place] [address] Dr. Donovan Curtis Hemoglobin (Bld) [Mass/Vol] 11.4 g/dL Critically low 12.0-16.0 [facility] Comment on above: Performed By: #### C BC #### [facility] [address] [place] [address] Dr. Donovan Curtis IG # 0.01 10e3/ul Normal 0.00-0.03 [facility] Comment on above: Performed By: #### C BC #### [facility] [address] [place] [address] Dr. Donovan Curtis IG % 0.2 % Normal 0.0-0.5 [facility] Comment on above: Performed By: #### C BC #### [facility] [address] [place] [address] Dr. Donovan Curtis LYMPH # 1.5 103/ul Normal 1.2-3.8 [facility] Comment on above: Performed By: #### C BC #### [facility] [address] [place] [address] Dr. Donovan Curtis Lymphocytes/100 WBC (Bld) 29.8 % Normal 20.5-60.0 [facility] Comment on above: Performed By: #### C BC #### [facility] [address] [place] [address] Dr. Donovan Curtis MANUAL DIFF REQ NO Normal [facility] Comment on above: Performed By: #### C BC #### [facility] [address] [place] [address] Dr. Donovan Curtis MCH (RBC) [Entitic mass] 31.1 pg Normal 26.7-34.0 [facility] Comment on above: Performed By: #### C BC #### [facility] [address] [place] [address] Dr. Donovan Curtis MCHC (RBC) [Mass/Vol] 33.0 g/dL Normal 29.9-35.2 [facility] Comment on above: Performed By: #### C BC #### [facility] [address] [place] [address] Dr. Donovan Curtis MCV (RBC) [Entitic vol] 94.0 fL Normal 81.0-99.0 [facility] Comment on above: Performed By: #### C BC #### [facility] [address] [place] [address] Dr. Donovan Curtis MONO # 0.7 103/ul Normal 0.3-0.8 [facility] Comment on above: Performed By: #### C BC #### [facility] [address] [place] [address] Dr. Donovan Curtis Monocytes/100 WBC (Bld) 13.6 % Critically high 1.7-12.0 [facility] Comment on above: Performed By: #### C BC #### [facility] [address] [place] [address] Dr. Donovan Curtis NEUT # 2.5 103/ul Normal 1.4-6.5 [facility] Comment on above: Performed By: #### C BC #### [facility] [address] [place] [address] Dr. Donovan Curtis Neutrophils/100 WBC (Bld) 50.7 % Normal 43.0-75.0 [facility] Comment on above: Performed By: #### C BC #### [facility] [address] [place] [address] Dr. Donovan Curtis Platelet mean volume (Bld) [Entitic vol] 11.3 fL Normal 9.5-13.5 [facility] Comment on above: Performed By: #### C BC #### [facility] [address] [place] [address] Dr. Donovan Curtis PLT 179 103/ul Normal 150-450 [facility] Comment on above: Performed By: #### C BC #### [facility] [address] [place] [address] Dr. Donovan Curtis RBC 3.67 106/ul Critically low 4.20-5.40 [facility] Comment on above: Performed By: #### C BC #### [facility] [address] [place] [address] Dr. Donovan Curtis WBC 4.9 103/ul Normal 4.0-11.0 [facility] Comment on above: Performed By: #### C BC #### [facility] [address] [place] [address] Dr. Donovan Curtis LIPID PROFILEon 03-15-2023 CHOL-HDL RATIO NORM SEE BELOW Normal [facility] Comment on above: Result Comment: 3.3 - 4.4 LOW RISK 4.4 - 7.1 AVERAGE RISK 7.1 - 11.0 MODERATE RISK >11.0 HIGH RISK Performed By: #### L IPID, CMP #### [facility] [address] [address] [address] Donovan Curtis Cholesterol [Mass/Vol] 105 mg/dL Normal <=200 [facility] Comment on above: Performed By: #### L IPID, CMP #### [facility] [address] [address] [address] Donovan Curtis Cholesterol in HDL [Mass/Vol] 45 mg/dL Normal 40-60 [facility] Comment on above: Performed By: #### L IPID, CMP #### [facility] [address] [address] [address] Donovan Curtis Cholesterol in LDL [Mass/Vol] 42.2 mg/dL Normal [facility] Comment on above: Performed By: #### L IPID, CMP #### [facility] [address] [address] [address] Donovan Curtis Cholesterol.total/C holesterol in HDL [Mass ratio] 2.3 {ratio} Normal [facility] Comment on above: Performed By: #### L IPID, CMP #### [facility] [address] [address] [address] Donovan Curtis HDL NORMAL > or = 60 mg/dl - LO W CARDIOVASCULAR RISK <40 mg/dl - HIGH CARDIOVASCULAR RISK Normal [facility] Comment on above: Performed By: #### L IPID, CMP #### [facility] [address] [place], [place] [address] Dr. Donovan Curtis LDL CALC NORMAL SEE BELOW Normal [facility] Comment on above: Result Comment: <100 mg/dl OPTIMAL 100 - 129 mg/dl NEAR OR ABOVE OPTIMAL 130 - 159 mg/dl BORDERLINE HIGH 160 - 189 mg/dl HIGH >190 mg/dl VERY HIGH Performed By: #### L IPID, CMP #### [facility] [address] [address] [address] Donovan Curtis Triglyceride [Mass/Vol] 89 mg/dL Normal <=150 [facility] Comment on above: Performed By: #### L IPID, CMP #### [facility] [address] [place] [address] Dr. Donovan Curtis VLDL CALC 17.8 mg/dL Normal [facility] Comment on above: Performed By: #### L IPID, CMP #### [facility] [address] [place] [address] Dr. Donovan Curtis PROF 14(COMP METB)on 023 Albumin [Mass/Vol] 3.1 g/dL Critically low 3.4-5.0 Th [facility] Comment on above: Performed By: #### L IPID, CMP #### [facility] [address] [place] [address] Dr. Donovan Curtis Albumin/Globulin [Mass ratio] 1.1 {ratio} Normal [facility] Comment on above: Performed By: #### L IPID, CMP #### [facility] [address] [place] [address] Dr. Donovan Curtis ALP [Catalytic activity/Vol] 66 U/L Normal 46-116 [facility] Comment on above: Performed By: #### L IPID, CMP #### [facility] [address] [place] [address] Dr. Donovan Curtis ALT [Catalytic activity/Vol] 16 U/L Normal 14-59 [facility] Comment on above: Performed By: #### L IPID, CMP #### [facility] [address] [place] [address] Dr. Donovan Curtis Anion gap [Moles/Vol] 12.5 mmol/L Normal [facility] Comment on above: Performed By: #### L IPID, CMP #### [facility] [address] [place] [address] Dr. Donovan Curtis AST [Catalytic activity/Vol] 23 U/L Normal 15-37 [facility] Comment on above: Performed By: #### L IPID, CMP #### [facility] [address] [address] [address] Donovan Curtis Bilirubin [Mass/Vol] 1.0 mg/dL Normal 0.2-1.0 [facility] Comment on above: Performed By: #### L IPID, CMP #### [facility] [address] [place] [address] Dr. Donovan Curtis Calcium [Mass/Vol] 9.8 mg/dL Normal 8.5-10.1 [facility] Comment on above: Performed By: #### L IPID, CMP #### [facility] [address] [address] [address] Donovan Curtis Chloride [Moles/Vol] 109 mmol/L Critically high 98-107 [facility] Comment on above: Performed By: #### L IPID, CMP #### [facility] [address] [place] [address] Dr. Donovan Curtis CO2 [Moles/Vol] 26.8 mmol/L Normal 21.0-32.0 [facility] Comment on above: Performed By: #### L IPID, CMP #### [facility] [address] [place] [address] Dr. Donovan Curtis Creatinine [Mass/Vol] 0.92 mg/dL Normal 0.55-1.02 [facility] Comment on above: Performed By: #### L IPID, CMP #### [facility] [address] [place] [address] Dr. Donovan Curtis EGFR-AF SALVADOREAN >60 Normal >=60 [facility] Comment on above: Performed By: #### L IPID, CMP #### [facility] [address] [place] [address] Dr. Donovan Curtis EGFR-NON AF SALVADOREAN 59 mL/min/1.73m2 Critically low >=60 [facility] Comment on above: Performed By: #### L IPID, CMP #### [facility] [address] [place] [address] Dr. Donovan Curtis Globulin (S) [Mass/Vol] 2.7 g/dL Normal [facility] Comment on above: Performed By: #### L IPID, CMP #### [facility] [address] [address] [address] Donovan Curtis Glucose [Mass/Vol] 87 mg/dL Normal 74-106 [facility] Comment on above: Performed By: #### L IPID, CMP #### [facility] [address] [place] [address] Dr. Donovan Curtis Potassium [Moles/Vol] 4.3 mmol/L Normal 3.5-5.1 [facility] Comment on above: Performed By: #### L IPID, CMP #### [facility] [address] [place] [address] Dr. Donovan Curtis Protein [Mass/Vol] 5.8 g/dL Critically low 6.4-8.2 Th [facility] Comment on above: Performed By: #### L IPID, CMP #### [facility] [address] [place] [address] Dr. Donovan Curtis Sodium [Moles/Vol] 144 mmol/L Normal 136-145 [facility] Comment on above: Performed By: #### L IPID, CMP #### [facility] [address] [place] [address] Dr. Donovan Curtis Urea nitrogen [Mass/Vol] 22.0 mg/dL Critically high 7.0-18.0 [facility] Comment on above: Performed By: #### L IPID, CMP #### [facility] [address] [place] [address] Dr. Donovan Curtis Urea nitrogen/Creatinine [Mass ratio] 23.9 mg/mg Normal [facility] Comment on above: Performed By: #### L IPID, CMP #### [facility] [address] [place] [address] Dr. Donovan Curtis BNPon 12-13-2021 Natriuretic peptide B (Bld) [Mass/Vol] 190.0 pg/mL Normal <=1,800.0 [facility] Comment on above: Performed By: #### B LEGAL SUMMER INTERN, BMP #### [facility] [address] [place] [address] Dr. Donovan Curtis CBC AUTO DIFFon 12-13-2021 BASO # 0.0 103/ul Normal 0.0-0.1 [facility] Comment on above: Performed By: #### C BC #### [facility] [address] [place] [address] Dr. Donovan Curtis Basophils/100 WBC (Bld) 0.5 % Normal 0.2-2.0 [facility] Comment on above: Performed By: #### C BC #### [facility] [address] [place] [address] Dr. Donovan Curtis EO # 0.2 103/ul Normal 0.0-0.7 [facility] Comment on above: Performed By: #### C BC #### [facility] [address] [place] [address] Dr. Donovan Curtis Eosinophils/100 WBC (Bld) 2.9 % Normal 0.9-7.0 [facility] Comment on above: Performed By: #### C BC #### [facility] [address] [place] [address] Dr. Donovan Curtis Erythrocyte distribution width (RBC) [Ratio] 14.1 % Normal 11.0-15.0 [facility] Comment on above: Performed By: #### C BC #### [facility] [address] [place] [address] Dr. Donovan Curtis Hematocrit (Bld) [Volume fraction] 42.0 % Normal 36.0-48.0 [facility] Comment on above: Performed By: #### C BC #### [facility] [address] [place] [address] Dr. Donovan Curtis Hemoglobin (Bld) [Mass/Vol] 13.1 g/dL Normal 12.0-16.0 [facility] Comment on above: Performed By: #### C BC #### [facility] [address] [place] [address] Dr. Donovan Curtis IG # 0.01 10e3/ul Normal 0.00-0.03 [facility] Comment on above: Performed By: #### C BC #### [facility] [address] [place] [address] Dr. Donovan Curtis IG % 0.2 % Normal 0.0-0.5 [facility] Comment on above: Performed By: #### C BC #### [facility] [address] [place] [address] Dr. Donovan Curtis LYMPH # 1.2 103/ul Normal 1.2-3.8 [facility] [facility] Comment on above: Performed By: #### C BC #### [facility] [address] [place] [address] Dr. Donovan Curtis Lymphocytes/100 WBC (Bld) 20.5 % Normal 20.5-60.0 [facility] Comment on above: Performed By: #### C BC #### [facility] [address] [place] [address] Dr. Donovan Curtis MANUAL DIFF REQ NO Normal [facility] Comment on above: Performed By: #### C BC #### [facility] [address] [place] [address] Dr. Donovan Curtis MCH (RBC) [Entitic mass] 29.7 pg Normal 26.7-34.0 [facility] Comment on above: Performed By: #### C BC #### [facility] [address] [place] [address] Dr. Donovan Curtis MCHC (RBC) [Mass/Vol] 31.2 g/dL Normal 29.9-35.2 [facility] Comment on above: Performed By: #### C BC #### [facility] [address] [place] [address] Dr. Donovan Curtis MCV (RBC) [Entitic vol] 95.2 fL Normal 81.0-99.0 [facility] Comment on above: Performed By: #### C BC #### [facility] [address] [place] [address] Dr. Donovan Curtis MONO # 0.7 103/ul Normal 0.3-0.8 [facility] Comment on above: Performed By: #### C BC #### [facility] [address] [place] [address] Dr. Donovan Curtis Monocytes/100 WBC (Bld) 11.7 % Normal 1.7-12.0 [facility] Comment on above: Performed By: #### C BC #### [facility] [address] [place] [address] Dr. Donovan Curtis NEUT # 3.7 103/ul Normal 1.4-6.5 [facility] Comment on above: Performed By: #### C BC #### [facility] [address] [place] [address] Dr. Donovan Curtis Neutrophils/100 WBC (Bld) 64.2 % Normal 43.0-75.0 [facility] Comment on above: Performed By: #### C BC #### [facility] [address] [place] [address] Dr. Donovan Curtis Platelet mean volume (Bld) [Entitic vol] 11.2 fL Normal 9.5-13.5 [facility] Comment on above: Performed By: #### C BC #### [facility] [address] [place] [address] Dr. Donovan Curtis PLT 240 103/ul Normal 150-450 [facility] Comment on above: Performed By: #### C BC #### [facility] [address] [place] [address] Dr. Donovan Curtis RBC 4.41 106/ul Normal 4.20-5.40 [facility] Comment on above: Performed By: #### C BC #### [facility] [address] [place] [address] Dr. Donovan Curtis WBC 5.8 103/ul Normal 4.0-11.0 [facility] Comment on above: Performed By: #### C BC #### [facility] [address] [place] [address] Dr. Donovan Curtis PROF CHEM 8 (BAS METB)on Anion gap [Moles/Vol] 13.7 mmol/L Normal [facility] Comment on above: Performed By: #### B LEGAL SUMMER INTERN, BMP #### [facility] [address] [place] [address] Dr. Donovan Curtis Calcium [Mass/Vol] 10.3 mg/dL Critically high 8.5-10.1 [facility] Comment on above: Performed By: #### B LEGAL SUMMER INTERN, BMP #### [facility] [address] [address] [address] Doonvan Curtis Chloride [Moles/Vol] 104 mmol/L Normal 98-107 [facility] Comment on above: Performed By: #### B LEGAL SUMMER INTERN, BMP #### [facility] [address] [address] [address] Donovan Curtis CO2 [Moles/Vol] 26.6 mmol/L Normal 21.0-32.0 [facility] Comment on above: Performed By: #### B LEGAL SUMMER INTERN, BMP #### [facility] [address] [address] [address] Donovan Curtis Creatinine [Mass/Vol] 1.04 mg/dL Critically high 0.55-1.02 [facility] Comment on above: Performed By: #### B LEGAL SUMMER INTERN, BMP #### [facility] [address] [address] [address] Donovan Curtis EGFR-AF SALVADOREAN >60 Normal >=60 [facility] Comment on above: Performed By: #### B LEGAL SUMMER INTERN, BMP #### [facility] [address] [address] [address] Donovan Curtis EGFR-NON AF SALVADOREAN 51 mL/min/1.73m2 Critically low >=60 [facility] Comment on above: Performed By: #### B LEGAL SUMMER INTERN, BMP #### [facility] [address] [address] [address] Donovan Curtis Glucose [Mass/Vol] 74 mg/dL Normal 74-106 [facility] Comment on above: Performed By: #### B LEGAL SUMMER INTERN, BMP #### [facility] [address] [address] [address] Donovan Curtis Potassium [Moles/Vol] 4.3 mmol/L Normal 3.5-5.1 [facility] Comment on above: Performed By: #### B LEGAL SUMMER INTERN, BMP #### [facility] [address] [address] [address] Donovan Curtis Sodium [Moles/Vol] 140 mmol/L Normal 136-145 [facility] Comment on above: Performed By: #### B LEGAL SUMMER INTERN, BMP #### [facility] [address] [address] [address] Donovan Curtis Urea nitrogen [Mass/Vol] 19.0 mg/dL Critically high 7.0-18.0 [facility] Comment on above: Performed By: #### B LEGAL SUMMER INTERN, BMP #### [facility] [address] [address] [address] Donovan Curtis Urea nitrogen/Creatinine [Mass ratio] 18.3 mg/mg [facility] Comment on above: Performed By: #### B LEGAL SUMMER INTERN, BMP #### [facility] [address] [address] [address] Donovan Curtis Encounters Encounter Date Encounter Type Care Provider Facility Start: 05-18-2023 End: 05-18-2023 ambulatory Ese Goldberg Other [facility] Other Start: 05-18-2023 Telephone encounter Ese Ashlyn [facility] Start: 05-16-2023 End: 05-16-2023 ambulatory Ese Ashlyn Other [facility] Other Start: 05-16-2023 Telephone encounter Ese Ashlyn [facility] Start: 05-01-2023 End: 05-01-2023 ambulatory Ese Goldberg Other [facility] Other Start: 05-01-2023 Sbsq nursing facil care/day minor complj 15 min Ese Goldberg [facility] Start: 03-14-2023 End: 03-14-2023 ambulatory Ese Goldberg Other [facility] Other Start: 03-14-2023 Telephone encounter Ese Ashlyn [facility] Start: 02-13-2023 End: 02-13-2023 ambulatory Ese Goldberg Other [facility] Other Start: 02-13-2023 Sbsq nursing facil care/day minor complj 15 min Ese Goldberg [facility] Start: 02-07-2023 End: 02-07-2023 ambulatory Ese Goldberg Other [facility] Other Start: 02-07-2023 Telephone encounter Ese Goldberg [facility] Start: 11-29-2022 End: 11-29-2022 ambulatory Ese Goldberg Other [facility] Other Start: 11-29-2022 Sbs nursing facil care/day minor complj 15 min Ese Goldberg [facility] Start: 08-18-2022 End: 08-18-[address] ESE GOLDBERG Facility:[facility] Start: 07-19-2022 End: 07-19-[address] ESE GOLDBERG Facility:[facility] Start: 12-13-2021 End: 12-13-[address] ESE GOLDBERG Facility:[facility] Payers Date Payer Category Payer Medicare 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 Will check for COVID and UTI Apr, Recurrent major depressive disorder, in partial remission (ICD-10 - F33.41) stable on present med [facility] Other Evaluation note 03-14-2023 Note Date & Type Note Facility 03-14-2023 Evaluation note Encounter Date Diagnosis Assessment Notes Mar, Recurrent major depressive disorder, in partial remission (ICD-10 - F33.41) [facility] Other Evaluation note 02-13-2023 Note Date & [...] - R60.9) Elevated legs. Reviewed medications at [place]. [facility] Other Evaluation note 11-29-2022 Note Date & [...] to encourage elevation. On moderate strength diuretic. [facility] Other Evaluation note Note Date & Type Note Facility Evaluation note No Information [facility] Other History general Narrative - Reported Note Date & Type Note Facility History general Narrative - Reported Type Medical History Borderline DM Medical History Hyperlipids Medical History HTN Medical History GERD Medical History Seizures Medical History DJD Surgical History oophorectomy 2004 [facility] Other Summary Purpose Family History No Family [...] BE BASED ON THE PRIMARY CLINICAL RECORDS. [facility] provides no warranty or guarantee of the accuracy or completeness of information in this document.
[2023-11-28 09:04] LABS: Basophils Percent Auto 0.6 % (0.2-2.0); Eosinophils Absolute Auto 0.3 10^3/uL (0.0-0.7); Eosinophils Percent Auto 5.8 % (0.9-7.0); Hematocrit 37.5 % (36.0-48.0); Hemoglobin 11.9 g/dL (12.0-16.0); Immature Granulocytes Abs Auto 0.01 10^3/uL (0.00-0.03); Immature Granulocytes Pct Auto 0.2 % (0.0-0.5); Lymphocytes Absolute Auto 1.3 10^3/uL (1.2-3.8); Lymphocytes Percent Auto 25.6 % (20.5-60.0); Mean Corpuscular HGB Conc 31.7 g/dL (29.9-35.2); Mean Corpuscular Hemoglobin 30.5 pg (26.7-34.0); Mean Corpuscular Volume 96.2 fL (81.0-99.0); Mean Platelet Volume 11.7 fL (9.5-13.5); Monocytes Absolute Auto 0.7 10^3/uL (0.3-0.8); Monocytes Percent Auto 13.1 % (1.7-12.0); Neutrophils Absolute Auto 2.8 10^3/uL (1.4-6.5); Neutrophils Percent Auto 54.7 % (43.0-75.0); Platelet Count 192 10^3/uL (150-450); Red Cell Distribution Width 14.6 % (11.0-15.0)
[2023-11-28 09:22] LABS: Alanine Aminotransferase 17 U/L (14-59); Albumin Level 3.3 g/dL (3.4-5.0); Alkaline Phosphatase 83 U/L (46-116); Anion Gap 11.3; Aspartate Amino Transferase 17 U/L (15-37); BUN Creatinine Ratio 22.1; Bilirubin Total 1.2 mg/dL (0.2-1.0); Calcium 9.6 mg/dL (8.5-10.1); Carbon Dioxide 26.1 mmol/L (21.0-32.0); Chloride 108 mmol/L (98-107); Chol HDL Ratio 2.3; Cholesterol 116 mg/dL (<=200); Estimated GFR (African America >60 (>=60); Estimated GFR (Non-African Ame 51 (>=60); Globulin 3.2 g/dL; Glucose 83 mg/dL (74-106); HDL Cholesterol 51 mg/dL (40-60); LDL Cholesterol Calculated 44.8 mg/dL; Potassium 4.4 mmol/L (3.5-5.1); Sodium 141 mmol/L (136-145); Total Protein 6.5 g/dL (6.4-8.2); Triglycerides 101 mg/dL (<=150); VLDL CHOLESTEROL 20.2 mg/dL
== END 2023-11-28 08:17 | disposition home or self-care (01) ==
LOC: LAB 08:16
PROVIDERS: PCP Family Medicine; Visit Provider Family Medicine
DX: I10 Essential (primary) hypertension (principal)
CPT/HCPCS: 36415; 80053; 80061; 85025

== ENCOUNTER 2024-02-01 02:24 | Outpatient (RCR) | payer MEDICARE, MEDICAID, SELFPAY | END 2024-05-06 23:59 | disposition home or self-care (01) | LOC: LAB 02:24 | PROVIDERS: PCP Family Medicine; Visit Provider Family Medicine | DX: R41.0 Disorientation, unspecified (principal) ==

== ENCOUNTER 2024-02-01 13:53 | Outpatient (REF) | payer MEDICARE, MEDICAID, SELFPAY ==
--- OUTSIDE RECORDS SUMMARY | 2024-02-01 14:07 | XMS_ITS | CCD ---
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 Donovan Curtis Basophils/100 WBC (Bld) 0.6 % Normal 0.2-2.0 [facility] Comment on above: Performed By: #### C BC #### [facility] [address] [place] [address] Dr. Donovan Curtis EO # 0.3 103/ul Normal 0.0-0.7 [facility] Comment on above: Performed By: #### C BC #### [facility] [address] [place] [address] Dr. Donovan Curtis Eosinophils/100 WBC (Bld) 6.3 % Normal 0.9-7.0 [facility] Comment on above: Performed By: #### C BC #### [facility] [address] [place] [address] Dr. Donovan Curtis Erythrocyte distribution width (RBC) [Ratio] 13.7 % Normal 11.0-15.0 [facility] Comment on above: Performed By: #### C BC #### [facility] [address] [place] [address] Dr. Donovan Curtis Hematocrit (Bld) [Volume fraction] 41.0 % Normal 36.0-48.0 [facility] Comment on above: Performed By: #### C BC #### [facility] [address] [place] [address] Dr. Donovan Curtis Hemoglobin (Bld) [Mass/Vol] 13.1 g/dL Normal 12.0-16.0 [facility] Comment on above: Performed By: #### C BC #### [facility] [address] [place] [address] Dr. Donovan Curtis IG # 0.01 10e3/ul Normal 0.00-0.03 [facility] Comment on above: Performed By: #### C BC #### [facility] [address] [place] [address] Dr. Donovan Curtis IG % 0.2 % Normal 0.0-0.5 [facility] Comment on above: Performed By: #### C BC #### [facility] [address] [place] [address] Dr. Donovan Curtis LYMPH # 1.3 103/ul Normal 1.2-3.8 [facility] Comment on above: Performed By: #### C BC #### [facility] [address] [place] [address] Dr. Donovan Curtis Lymphocytes/100 WBC (Bld) 25.6 % Normal 20.5-60.0 [facility] Comment on above: Performed By: #### C BC #### [facility] [address] [place] [address] Dr. Donovan Curtis MANUAL DIFF REQ NO Normal [facility] Comment on above: Performed By: #### C BC #### [facility] [address] [place] [address] Dr. Donovan Curtis MCH (RBC) [Entitic mass] 30.9 pg Normal 26.7-34.0 [facility] Comment on above: Performed By: #### C BC #### [facility] [address] [place] [address] Dr. Donovan Curtis MCHC (RBC) [Mass/Vol] 32.0 g/dL Normal 29.9-35.2 [facility] Comment on above: Performed By: #### C BC #### [facility] [address] [place] [address] Dr. Donovan Curtis MCV (RBC) [Entitic vol] 96.7 fL Normal 81.0-99.0 [facility] Comment on above: Performed By: #### C BC #### [facility] [address] [place] [address] Dr. Donovan Curtis MONO # 0.6 103/ul Normal 0.3-0.8 [facility] Comment on above: Performed By: #### C BC #### [facility] [address] [place] [address] Dr. Donovan Curtis Monocytes/100 WBC (Bld) 11.2 % Normal 1.7-12.0 [facility] Comment on above: Performed By: #### C BC #### [facility] [address] [place] [address] Dr. Donovan Curtis NEUT # 2.8 103/ul Normal 1.4-6.5 [facility] Comment on above: Performed By: #### C BC #### [facility] [address] [address] [address] Donovan Curtis Neutrophils/100 WBC (Bld) 56.1 % Normal 43.0-75.0 [facility] Comment on above: Performed By: #### C BC #### [facility] [address] [address] [address] Donvoan Curtis Platelet mean volume (Bld) [Entitic vol] 11.9 fL Normal 9.5-13.5 [facility] Comment on above: Performed By: #### C BC #### [facility] [address] [place] [address] Dr. Donovan Curtis PLT 221 103/ul Normal 150-450 [facility] Comment on above: Performed By: #### C BC #### [facility] [address] [place] [address] Dr. Donovan Curtis RBC 4.24 106/ul Normal 4.20-5.40 [facility] Comment on above: Performed By: #### C BC #### [facility] [address] [place] [address] Dr. Donovan Curtis WBC 5.1 103/ul Normal 4.0-11.0 [facility] Comment on above: Performed By: #### C BC #### [facility] [address] [place] [address] Dr. Donovan Curtis PROF CHEM 8 (BAS METB)on Anion gap [Moles/Vol] 14.8 mmol/L Normal [facility] Comment on above: Performed By: #### B MP #### [facility] [address] [place] [address] Dr. Donovan Curtis Calcium [Mass/Vol] 10.1 mg/dL Normal 8.5-10.1 [facility] Comment on above: Performed By: #### B MP #### [facility] [address] [place] [address] Dr. Donovan Curtis Chloride [Moles/Vol] 105 mmol/L Normal 98-107 [facility] Comment on above: Performed By: #### B MP #### [facility] [address] [address] [address] Donovan Curtis CO2 [Moles/Vol] 26.2 mmol/L Normal 21.0-32.0 [facility] Comment on above: Performed By: #### B MP #### [facility] [address] [address] [address] Donovan Curtis Creatinine [Mass/Vol] 1.05 mg/dL Critically high 0.55-1.02 [facility] Comment on above: Performed By: #### B MP #### [facility] [address] [address] [address] Donovan Curtis EGFR-AF IRAQI >60 Normal >=60 [facility] Comment on above: Performed By: #### B MP #### [facility] [address] [address] [address] Donovan Curtis EGFR-NON AF IRAQI 51 mL/min/1.73m2 Critically low >=60 [facility] Comment on above: Performed By: #### B MP #### [facility] [address] [address] [address] Donovan Curtis Glucose [Mass/Vol] 89 mg/dL Normal 74-106 [facility] Comment on above: Performed By: #### B MP #### [facility] [address] [address] [address] Donovan Curtis Potassium [Moles/Vol] 4.0 mmol/L Normal 3.5-5.1 [facility] Comment on above: Performed By: #### B MP #### [facility] [address] [address] [address] Donovan Curtis Sodium [Moles/Vol] 142 mmol/L Normal 136-145 [facility] Comment on above: Performed By: #### B MP #### [facility] [address] [address] [address] Donovan Curtis Urea nitrogen [Mass/Vol] 18.0 mg/dL Normal 7.0-18.0 [facility] Comment on above: Performed By: #### B MP #### [facility] [address] [place] [address] Dr. Donovan Curtis Urea nitrogen/Creatinine [Mass ratio] 17.1 mg/mg Normal [facility] Comment on above: Performed By: #### B MP #### [facility] [address] [place] [address] Dr. Donovan Curtis CBC AUTO DIFFon 07-19-2022 BASO # 0.0 103/ul Normal 0.0-0.1 [facility] Comment on above: Performed By: #### C BC #### [facility] [address] [place] [address] Dr. Donovan Curtis Basophils/100 WBC (Bld) 0.6 % Normal 0.2-2.0 [facility] Comment on above: Performed By: #### C BC #### [facility] [address] [place] [address] Dr. Donovan Curtis EO # 0.3 103/ul Normal 0.0-0.7 [facility] Comment on above: Performed By: #### C BC #### [facility] [address] [place] [address] Dr. Donovan Curtis Eosinophils/100 WBC (Bld) 5.1 % Normal 0.9-7.0 [facility] Comment on above: Performed By: #### C BC #### [facility] [address] [place] [address] Dr. Donovan Curtis Erythrocyte distribution width (RBC) [Ratio] 13.8 % Normal 11.0-15.0 [facility] Comment on above: Performed By: #### C BC #### [facility] [address] [place] [address] Dr. Donovan Curtis Hematocrit (Bld) [Volume fraction] 34.5 % Critically low 36.0-48.0 [facility] Comment on above: Performed By: #### C BC #### [facility] [address] [place] [address] Dr. Donovan Curtis Hemoglobin (Bld) [Mass/Vol] 11.4 g/dL Critically low 12.0-16.0 [facility] Comment on above: Performed By: #### C BC #### [facility] [address] [place] [address] Dr. Donovan Curtis IG # 0.01 10e3/ul Normal 0.00-0.03 [facility] Comment on above: Performed By: #### C BC #### [facility] [address] [place] [address] Dr. Donovan Curtis IG % 0.2 % Normal 0.0-0.5 [facility] Comment on above: Performed By: #### C BC #### [facility] [address] [place] [address] Dr. Donovan Curtis LYMPH # 1.5 103/ul Normal 1.2-3.8 [facility] Comment on above: Performed By: #### C BC #### [facility] [address] [place] [address] Dr. Donovan Curtis Lymphocytes/100 WBC (Bld) 29.8 % Normal 20.5-60.0 [facility] Comment on above: Performed By: #### C BC #### [facility] [address] [place] [address] Dr. Donovan Curtis MANUAL DIFF REQ NO Normal [facility] Comment on above: Performed By: #### C BC #### [facility] [address] [place] [address] Dr. Donovan Curtis MCH (RBC) [Entitic mass] 31.1 pg Normal 26.7-34.0 [facility] Comment on above: Performed By: #### C BC #### [facility] [address] [place] [address] Dr. Donovan Curtis MCHC (RBC) [Mass/Vol] 33.0 g/dL Normal 29.9-35.2 [facility] Comment on above: Performed By: #### C BC #### [facility] [address] [place] [address] Dr. Donovan Curtis MCV (RBC) [Entitic vol] 94.0 fL Normal 81.0-99.0 [facility] Comment on above: Performed By: #### C BC #### [facility] [address] [place] [address] Dr. Donovan Curtis MONO # 0.7 103/ul Normal 0.3-0.8 [facility] Comment on above: Performed By: #### C BC #### [facility] [address] [place] [address] Dr. Donovan Curtis Monocytes/100 WBC (Bld) 13.6 % Critically high 1.7-12.0 [facility] Comment on above: Performed By: #### C BC #### [facility] [address] [place] [address] Dr. Donovan Curtis NEUT # 2.5 103/ul Normal 1.4-6.5 [facility] Comment on above: Performed By: #### C BC #### [facility] [address] [place] [address] Dr. Donovan Curtis Neutrophils/100 WBC (Bld) 50.7 % Normal 43.0-75.0 [facility] Comment on above: Performed By: #### C BC #### [facility] [address] [place] [address] Dr. Donovan Curtis Platelet mean volume (Bld) [Entitic vol] 11.3 fL Normal 9.5-13.5 [facility] Comment on above: Performed By: #### C BC #### [facility] [address] [place] [address] Dr. Donovan Curtis PLT 179 103/ul Normal 150-450 [facility] Comment on above: Performed By: #### C BC #### [facility] [address] [place] [address] Dr. Donovan Curtis RBC 3.67 106/ul Critically low 4.20-5.40 [facility] Comment on above: Performed By: #### C BC #### [facility] [address] [place] [address] Dr. Donovan Curtis WBC 4.9 103/ul Normal 4.0-11.0 [facility] Comment on above: Performed By: #### C BC #### [facility] [address] [place] [address] Dr. Donovan Curtis LIPID PROFILEon 03-15-2023 CHOL-HDL RATIO NORM SEE BELOW Normal [facility] Comment on above: Result Comment: 3.3 - 4.4 LOW RISK 4.4 - 7.1 AVERAGE RISK 7.1 - 11.0 MODERATE RISK >11.0 HIGH RISK Performed By: #### L IPID, CMP #### [facility] [address] [address] [address] Donovan Curtis Cholesterol [Mass/Vol] 105 mg/dL Normal <=200 [facility] Comment on above: Performed By: #### L IPID, CMP #### [facility] [address] [address] [address] Donovan Curtis Cholesterol in HDL [Mass/Vol] 45 mg/dL Normal 40-60 [facility] Comment on above: Performed By: #### L IPID, CMP #### [facility] [address] [address] [address] Donovan Curtis Cholesterol in LDL [Mass/Vol] 42.2 mg/dL Normal [facility] Comment on above: Performed By: #### L IPID, CMP #### [facility] [address] [address] [address] Donovan Curtis Cholesterol.total/C holesterol in HDL [Mass ratio] 2.3 {ratio} Normal [facility] Comment on above: Performed By: #### L IPID, CMP #### [facility] [address] [address] [address] Donovan Curtis HDL NORMAL > or = 60 mg/dl - LO W CARDIOVASCULAR RISK <40 mg/dl - HIGH CARDIOVASCULAR RISK Normal [facility] Comment on above: Performed By: #### L IPID, CMP #### [facility] [address] [place], [place] [address] Dr. Donovan Curtis LDL CALC NORMAL SEE BELOW Normal [facility] Comment on above: Result Comment: <100 mg/dl OPTIMAL 100 - 129 mg/dl NEAR OR ABOVE OPTIMAL 130 - 159 mg/dl BORDERLINE HIGH 160 - 189 mg/dl HIGH >190 mg/dl VERY HIGH Performed By: #### L IPID, CMP #### [facility] [address] [address] [address] Donovan Curtis Triglyceride [Mass/Vol] 89 mg/dL Normal <=150 [facility] Comment on above: Performed By: #### L IPID, CMP #### [facility] [address] [place] [address] Dr. Donovan Curtis VLDL CALC 17.8 mg/dL Normal [facility] Comment on above: Performed By: #### L IPID, CMP #### [facility] [address] [place] [address] Dr. Donovan Curtis PROF 14(COMP METB)on 023 Albumin [Mass/Vol] 3.1 g/dL Critically low 3.4-5.0 [facility] Comment on above: Performed By: #### L IPID, CMP #### [facility] [address] [place] [address] Dr. Donovan Curtis Albumin/Globulin [Mass ratio] 1.1 {ratio} Normal [facility] Comment on above: Performed By: #### L IPID, CMP #### [facility] [address] [place] [address] Dr. Donovan Curtis ALP [Catalytic activity/Vol] 66 U/L Normal 46-116 [facility] Comment on above: Performed By: #### L IPID, CMP #### [facility] [address] [place] [address] Dr. Donovan Curtis ALT [Catalytic activity/Vol] 16 U/L Normal 14-59 [facility] Comment on above: Performed By: #### L IPID, CMP #### [facility] [address] [place] [address] Dr. Donovan Curtis Anion gap [Moles/Vol] 12.5 mmol/L Normal [facility] Comment on above: Performed By: #### L IPID, CMP #### [facility] [address] [place] [address] Dr. Donovan Curtis AST [Catalytic activity/Vol] 23 U/L Normal 15-37 [facility] Comment on above: Performed By: #### L IPID, CMP #### [facility] [address] [address] [address] Donovan Curtis Bilirubin [Mass/Vol] 1.0 mg/dL Normal 0.2-1.0 [facility] Comment on above: Performed By: #### L IPID, CMP #### [facility] [address] [place] [address] Dr. Donovan Curtis Calcium [Mass/Vol] 9.8 mg/dL Normal 8.5-10.1 [facility] Comment on above: Performed By: #### L IPID, CMP #### [facility] [address] [address] [address] Donovan Curtis Chloride [Moles/Vol] 109 mmol/L Critically high 98-107 [facility] Comment on above: Performed By: #### L IPID, CMP #### [facility] [address] [place] [address] Dr. Donovan Curtis CO2 [Moles/Vol] 26.8 mmol/L Normal 21.0-32.0 [facility] Comment on above: Performed By: #### L IPID, CMP #### [facility] [address] [place] [address] Dr. Donovan Curtis Creatinine [Mass/Vol] 0.92 mg/dL Normal 0.55-1.02 [facility] Comment on above: Performed By: #### L IPID, CMP #### [facility] [address] [place] [address] Dr. Donovan Curtis EGFR-AF IRAQI >60 Normal >=60 [facility] Comment on above: Performed By: #### L IPID, CMP #### [facility] [address] [place] [address] Dr. Donovan Curtis EGFR-NON AF IRAQI 59 mL/min/1.73m2 Critically low >=60 [facility] Comment on above: Performed By: #### L IPID, CMP #### [facility] [address] [place] [address] Dr. Donovan Curtis Globulin (S) [Mass/Vol] 2.7 g/dL Normal [facility] Comment on above: Performed By: #### L IPID, CMP #### [facility] [address] [address] [address] Donovan Curtis Glucose [Mass/Vol] 87 mg/dL Normal 74-106 [facility] Comment on above: Performed By: #### L IPID, CMP #### [facility] [address] [place] [address] Dr. Donovan Curtis Potassium [Moles/Vol] 4.3 mmol/L Normal 3.5-5.1 [facility] Comment on above: Performed By: #### L IPID, CMP #### [facility] [address] [place] [address] Dr. Donovan Curtis Protein [Mass/Vol] 5.8 g/dL Critically low 6.4-8.2 [facility] Comment on above: Performed By: #### L IPID, CMP #### [facility] [address] [place] [address] Dr. Donovan Curtis Sodium [Moles/Vol] 144 mmol/L Normal 136-145 [facility] Comment on above: Performed By: #### L IPID, CMP #### [facility] [address] [place] [address] Dr. Donovan Curtis Urea nitrogen [Mass/Vol] 22.0 mg/dL Critically high 7.0-18.0 [facility] Comment on above: Performed By: #### L IPID, CMP #### [facility] [address] [place] [address] Dr. Donovan Curtis Urea nitrogen/Creatinine [Mass ratio] 23.9 mg/mg Normal [facility] Comment on above: Performed By: #### L IPID, CMP #### [facility] [address] [place] [address] Dr. Donovan Curtis BNPon 12-13-2021 Natriuretic peptide B (Bld) [Mass/Vol] 190.0 pg/mL Normal <=1,800.0 [facility] Comment on above: Performed By: #### B SCOUT LEASER, BMP #### [facility] [address] [place] [address] Dr. Donovan Curtis CBC AUTO DIFFon 12-13-2021 BASO # 0.0 103/ul Normal 0.0-0.1 [facility] Comment on above: Performed By: #### C BC #### [facility] [address] [place] [address] Dr. Donovan Curtis Basophils/100 WBC (Bld) 0.5 % Normal 0.2-2.0 [facility] Comment on above: Performed By: #### C BC #### [facility] [address] [place] [address] Dr. Donovan Curtis EO # 0.2 103/ul Normal 0.0-0.7 [facility] Comment on above: Performed By: #### C BC #### [facility] [address] [place] [address] Dr. Donovan Curtis Eosinophils/100 WBC (Bld) 2.9 % Normal 0.9-7.0 [facility] Comment on above: Performed By: #### C BC #### [facility] [address] [place] [address] Dr. Donovan Curtis Erythrocyte distribution width (RBC) [Ratio] 14.1 % Normal 11.0-15.0 [facility] Comment on above: Performed By: #### C BC #### [facility] [address] [place] [address] Dr. Donovan Curtis Hematocrit (Bld) [Volume fraction] 42.0 % Normal 36.0-48.0 [facility] Comment on above: Performed By: #### C BC #### [facility] [address] [place] [address] Dr. Donovan Curtis Hemoglobin (Bld) [Mass/Vol] 13.1 g/dL Normal 12.0-16.0 [facility] Comment on above: Performed By: #### C BC #### [facility] [address] [place] [address] Dr. Donovan Curtis IG # 0.01 10e3/ul Normal 0.00-0.03 [facility] Comment on above: Performed By: #### C BC #### [facility] [address] [place] [address] Dr. Donovan Curtis IG % 0.2 % Normal 0.0-0.5 [facility] Comment on above: Performed By: #### C BC #### [facility] [address] [place] [address] Dr. Donovan Curtis LYMPH # 1.2 103/ul Normal 1.2-3.8 [facility] Comment on above: Performed By: #### C BC #### [facility] [address] [place] [address] Dr. Donovan Curtis Lymphocytes/100 WBC (Bld) 20.5 % Normal 20.5-60.0 [facility] Comment on above: Performed By: #### C BC #### [facility] [address] [place] [address] Dr. Donovan Curtis MANUAL DIFF REQ NO Normal [facility] Comment on above: Performed By: #### C BC #### [facility] [address] [place] [address] Dr. Donovan Curtis MCH (RBC) [Entitic mass] 29.7 pg Normal 26.7-34.0 [facility] Comment on above: Performed By: #### C BC #### [facility] [address] [place] [address] Dr. Donovan Curtis MCHC (RBC) [Mass/Vol] 31.2 g/dL Normal 29.9-35.2 [facility] Comment on above: Performed By: #### C BC #### [facility] [address] [place] [address] Dr. Donovan Curtis MCV (RBC) [Entitic vol] 95.2 fL Normal 81.0-99.0 [facility] Comment on above: Performed By: #### C BC #### [facility] [address] [place] [address] Dr. Donovan Curtis MONO # 0.7 103/ul Normal 0.3-0.8 [facility] Comment on above: Performed By: #### C BC #### [facility] [address] [place] [address] Dr. Donovan Curtis Monocytes/100 WBC (Bld) 11.7 % Normal 1.7-12.0 [facility] Comment on above: Performed By: #### C BC #### [facility] [address] [place] [address] Dr. Donovan Curtis NEUT # 3.7 103/ul Normal 1.4-6.5 [facility] Comment on above: Performed By: #### C BC #### [facility] [address] [place] [address] Dr. Donovan Curtis Neutrophils/100 WBC (Bld) 64.2 % Normal 43.0-75.0 [facility] Comment on above: Performed By: #### C BC #### [facility] [address] [place] [address] Dr. Donovan Curtis Platelet mean volume (Bld) [Entitic vol] 11.2 fL Normal 9.5-13.5 [facility] Comment on above: Performed By: #### C BC #### [facility] [address] [place] [address] Dr. Donovan Curtis PLT 240 103/ul Normal 150-450 [facility] Comment on above: Performed By: #### C BC #### [facility] [address] [place] [address] Dr. Donovan Curtis RBC 4.41 106/ul Normal 4.20-5.40 [facility] Comment on above: Performed By: #### C BC #### [facility] [address] [place] [address] Dr. Donovan Curtis WBC 5.8 103/ul Normal 4.0-11.0 [facility] Comment on above: Performed By: #### C BC #### [facility] [address] [place] [address] Dr. Donovan Curtis PROF CHEM 8 (BAS METB)on Anion gap [Moles/Vol] 13.7 mmol/L Normal [facility] Comment on above: Performed By: #### B SCOUT LEASER, BMP #### [facility] [address] [place] [address] Dr. Donovan Curtis Calcium [Mass/Vol] 10.3 mg/dL Critically high 8.5-10.1 [facility] Comment on above: Performed By: #### B SCOUT LEASER, BMP #### [facility] [address] [address] [address] Donovan Curtis Chloride [Moles/Vol] 104 mmol/L Normal 98-107 [facility] Comment on above: Performed By: #### B SCOUT LEASER, BMP #### [facility] [address] [address] [address] Donovan Curtis CO2 [Moles/Vol] 26.6 mmol/L Normal 21.0-32.0 [facility] Comment on above: Performed By: #### B SCOUT LEASER, BMP #### [facility] [address] [address] [address] Donovan Curtis Creatinine [Mass/Vol] 1.04 mg/dL Critically high 0.55-1.02 [facility] Comment on above: Performed By: #### B SCOUT LEASER, BMP #### [facility] [address] [address] [address] Donovan Curtis EGFR-AF IRAQI >60 Normal >=60 [facility] Comment on above: Performed By: #### B SCOUT LEASER, BMP #### [facility] [address] [address] [address] Donovan Curtis EGFR-NON AF IRAQI 51 mL/min/1.73m2 Critically low >=60 [facility] Comment on above: Performed By: #### B SCOUT LEASER, BMP #### [facility] [address] [address] [address] Donovan Curtis Glucose [Mass/Vol] 74 mg/dL Normal 74-106 [facility] Comment on above: Performed By: #### B SCOUT LEASER, BMP #### [facility] [address] [address] [address] Donovan Curtis Potassium [Moles/Vol] 4.3 mmol/L Normal 3.5-5.1 [facility] Comment on above: Performed By: #### B SCOUT LEASER, BMP #### [facility] [address] [address] [address] Donovan Curtis Sodium [Moles/Vol] 140 mmol/L Normal 136-145 [facility] Comment on above: Performed By: #### B SCOUT LEASER, BMP #### [facility] [address] [address] [address] Donovan Curtis Urea nitrogen [Mass/Vol] 19.0 mg/dL Critically high 7.0-18.0 [facility] Comment on above: Performed By: #### B SCOUT LEASER, BMP #### [facility] [address] [address] [address] Donovan Curtis Urea nitrogen/Creatinine [Mass ratio] 18.3 mg/mg [facility] Comment on above: Performed By: #### B SCOUT LEASER, BMP #### [facility] [address] [address] [address] Donovan Curtis Encounters Encounter Date Encounter Type Care Provider Facility Start: 05-18-2023 End: 05-18-2023 ambulatory Ese Goldberg Other [facility] Other Start: 05-18-2023 Telephone encounter Ese Ashlyn [facility] Start: 05-16-2023 End: 05-16-2023 ambulatory Ese Ashlyn Other [facility] Other Start: 05-16-2023 Telephone encounter Ese Ashlyn [facility] Start: 05-01-2023 End: 05-01-2023 ambulatory Ese Goldberg Other [facility] Other Start: 05-01-2023 Sbsq nursing facil care/day minor complj 15 min Ese Goldberg [facility] Start: 03-14-2023 End: 03-14-2023 ambulatory Ese Goldberg Other [facility] Other Start: 03-14-2023 Telephone encounter Ese Ashlyn [facility] Start: 02-13-2023 End: 02-13-2023 ambulatory Ese Goldberg Other [facility] Other Start: 02-13-2023 Sbsq nursing facil care/day minor complj 15 min Ese Goldberg [facility] Start: 02-07-2023 End: 02-07-2023 ambulatory Ese Goldberg Other [facility] Other Start: 02-07-2023 Telephone encounter Ese Goldberg [facility] Start: 11-29-2022 End: 11-29-2022 ambulatory Ese Goldberg Other [facility] Other Start: 11-29-2022 Sbs nursing facil care/day minor complj 15 min Ese Goldberg [facility] Start: 08-18-2022 End: 08-18-[address] ESE GOLDBERG Facility:[facility] Start: 07-19-2022 End: 07-19-[address] ESE GOLDBERG Facility:[facility] Start: 12-13-2021 End: 12-13-[address] ESE GOLDBERG Facility:[facility] Payers Date Payer Category Payer Medicare [id number] 1960 Medicaid [id number] 1960 Medicare [id number] 1945 Unknown [id number] 1945 Unknown [id number] 1945 Unknown [id number] Social History Date Type Detail Facility Sex Assigned At [facility] Other Evaluation note 05-18-2023 Note Date & Type Note Facility 05-18-2023 Evaluation note Encounter Date Diagnosis Assessment Notes May, Recurrent major depressive disorder, in partial remission (ICD-10 - F33.41) [facility] Other Evaluation note 05-16-2023 Note Date & Type Note Facility 05-16-2023 Evaluation note Encounter Date Diagnosis Assessment Notes May, Recurrent major depressive disorder, in partial remission (ICD-10 - F33.41) [facility] Other Evaluation note 05-01-2023 Note Date & Type Note Facility 05-01-2023 Evaluation note Encounter Date Diagnosis Assessment Notes Apr, Essential (primary) hypertension (ICD-10 - I10) Continue present med Apr, Other fatigue (ICD-10 - R53.83) d/w w nursing staff. Will check for COVID and UTI Apr, Recurrent major depressive disorder, in partial remission (ICD-10 - F33.41) stable on present med [facility] Other Evaluation note 03-14-2023 Note Date & Type Note Facility 03-14-2023 Evaluation note Encounter Date Diagnosis Assessment Notes Mar, Recurrent major depressive disorder, in partial remission (ICD-10 - F33.41) [facility] Other Evaluation note 02-13-2023 Note Date & [...] - R60.9) Elevated legs. Reviewed medications at [place]. [facility] Other Evaluation note 11-29-2022 Note Date & [...] to encourage elevation. On moderate strength diuretic. [facility] Other Evaluation note Note Date & Type Note Facility Evaluation note No Information [employer] Other History general Narrative - Reported Note Date & Type Note Facility History general Narrative - Reported Type Medical History Borderline DM Medical History Hyperlipids Medical History HTN Medical History GERD Medical History Seizures Medical History DJD Surgical History oophorectomy 2004 [facility] Other Summary Purpose Family History No Family [...] BE BASED ON THE PRIMARY CLINICAL RECORDS. [employer] provides no warranty or guarantee of the accuracy or completeness of information in this document.
[2024-02-01 14:10] LABS: Bilirubin Urine NEGATIVE (NEGATIVE); Blood Urine TRACE-I (NEGATIVE); Color Urine LT. YELLOW (YELLOW); Glucose Urine UA NEGATIVE (NEGATIVE); Ketones Urine NEGATIVE (NEGATIVE); Leukocyte Esterase Urine MODERATE (NEGATIVE); Nitrite Urine NEGATIVE (NEGATIVE); Protein Urine NEGATIVE (NEG/TRACE); Urobilinogen Urine 0.2 EU/dL (0.2-1.0)
[2024-02-01 14:13] LABS: Clarity Urine CLOUDY (CLEAR); Urine Microscopic Indicated YES
[2024-02-01 14:17] LABS: Bacteria Urine MODERATE #/HPF (NONE SEEN); Crystals Seen? Seen #/HPF (None Seen); Mucus Urine SMALL (NONE SEEN); Squamous Epithelial Cell Urine FEW #/LPF (NONE/RARE)
[2024-02-01 14:18] LABS: Amorphous Sediment Urine MODERATE; Urine Culture Indicated YES
== END 2024-02-01 13:54 | disposition home or self-care (01) ==
LOC: LAB 13:53
PROVIDERS: PCP Family Medicine; Visit Provider Family Medicine
DX: R30.0 Dysuria (principal); R41.0 Disorientation, unspecified
CPT/HCPCS: 81001; 87086; 87150; 87186

== ENCOUNTER 2024-07-02 15:32 | Emergency (ER) | payer MEDICARE, MEDICAID, SELFPAY ==
[2024-07-02] VITALS (25 sets, daily range): BP systolic 98–120; BP diastolic 44–56; PULSE 79–115; TEMP 37–37.3; O2SAT 96; BMI 25.6
--- NOTE | 2024-07-02 15:40 | ECG_ITS ---
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
--- NOTE | 2024-07-02 15:42 | ED_ITS ---
HPI - Altered Mental Status General Chief Complaint: Altered Mental Status Stated Complaint: SHORTNESS OF BREATH Time Seen by Provider: 07/02/24 15:36 Source: medical record Mode of arrival: ambulance Limitations: altered mental status Limitations comment: DEMENTIA History of Present Illness HPI narrative: Patient is an 79-year-old female with a history of advanced dementia brought to the emergency department by ambulance for altered mental status. EMS does not know the patient's baseline status, [facility] reports that the patient is typically alert and oriented to self but apparently seems more confused today. They noticed fevers of 99.2 at the [facility]. The [facility] staff reported to emergency room staff that they were not able to get lab testing done today so the provider at the [facility] requested the patient just be sent to the emergency department. halfway reported that the patient was hypoxic on room air so 2 L of oxygen by nasal cannula were placed. Patient is breathing easily and not hypoxic on room air on arrival to the ER. She is confused but able to follow commands. She has no complaints of pain at this time. History is otherwise limited. Related Data Previous Rx's ?Medication ?Instructions ?Recorded cephalexin 500 mg capsule 500 mg PO Q8H 7 days #21 caps 07/02/24 cephalexin 500 mg capsule 500 mg PO Q8H 7 days #21 caps 07/02/24 Allergies Allergy/AdvReac Type Severity Reaction Status Date / Time Penicillins AdvReac Severe Rash Verified 07/02/24 15:42 Review of Systems ROS Status of ROS unobtainable due to medical condition and unobtainable due to mental status Exam Narrative Exam Narrative: Gen.: Awake, alert, in no distress Head: Normocephalic, atraumatic ENT: Dry mucous membranes Respiratory: No respiratory distress, diminished Cardio: Regular rate and rhythm Gastrointestinal: Abdomen is soft, nondistended and nontender to palpation Extremities: Moves extremities equally, no injuries noted Psych: Normal mood and affect Neuro: Alert and oriented to her first name; confused to her birthday, place and time Skin: Warm, dry, intact Constitutional Vital Signs, click to edit/add: Last Vital Signs Temp 99.2 F 07/02/24 15:39 Pulse 89 07/02/24 17:20 Resp 25 H 07/02/24 17:20 BP 105/44 L 07/02/24 17:01 Pulse Ox 96 07/02/24 15:39 O2 Del Method Room Air 07/02/24 15:39 Course Vital Signs Vital signs: Vital Signs Temperature 99.2 F 07/02/24 15:39 Pulse Rate 108 H 07/02/24 15:39 Respiratory Rate 18 07/02/24 15:39 Blood Pressure 108/49 07/02/24 15:39 Pulse Oximetry 96 07/02/24 15:39 Oxygen Delivery Method Room Air 07/02/24 15:39 Temperature 99.2 F 07/02/24 15:39 Pulse Rate 89 07/02/24 17:20 Respiratory Rate 25 H 07/02/24 17:20 Blood Pressure 105/44 L 07/02/24 17:01 Pulse Oximetry 96 07/02/24 15:39 Oxygen Delivery Method Room Air 07/02/24 15:39 MDM - Altered Mental Status MDM Narrative Medical decision making narrative: Tachycardia improved after IV fluid administration. Patient with no fevers, vomiting. She is confused but calm and cooperative. CT of the brain, chest x- ray reviewed by the radiologist with no evidence of acute process. Laboratory studies reviewed and noted, patient is mildly dehydrated with elevated lactic acid. White blood cell count is normal. She was found to have a urinary tract infection. She received 2 g IV Rocephin and 1 L of normal saline. Her vital signs are stable, repeat lactic acid is normal. I discussed the case with the nurse practitioner on-call for [facility] and she is in agreement that the patient can be discharged back to the facility, her IV can remain in place and she can receive IV Rocephin tomorrow. She can be transition to oral antibiotics after that time. Patient's condition has improved with fluid resuscitation and antibiotics, she is hemodynamically stable. 2 g of IV Rocephin were ordered for tomorrow and the patient can be placed on Keflex for 7 days after. Return to the ER if symptoms change or worsen. SUPERVISED APC VISIT, PHYSICIAN ATTESTATION: Based on the medical record the care appears appropriate. ? Medical Records Attestation: I reviewed the patient's medical records. Lab Data Attestation: I reviewed the patient's lab results. Labs: Lab Results 07/02/24 07/02/24 07/02/24 Range/Units 15:42 15:46 15:55 WBC (4.0-11.0) 10^3/uL RBC (4.20-5.40) 10^6/uL Hgb (12.0-16.0) g/dL Hct (36.0-48.0) % MCV (81.0-99.0) fL MCH (26.7-34.0) pg MCHC (29.9-35.2) g/dL RDW (11.0-15.0) % Plt Count (150-450) 10^3/uL MPV (9.5-13.5) fL Seg Neuts % (Manual) (43.0-75.0) Lymphocytes % (Manual) (20.5-60.0) % Monocytes % (Manual) (1.7-12.0) % Eosinophils % (Manual) (0.9-7.0) % Basophils % (Manual) (0.2-2.0) % Metamyelocytes % Neutrophils # (Manual) (1.4-6.5) 10^3/uL Lymphocytes # (Manual) (1.20-3.80) 10^3/uL Monocytes # (Manual) (0.30-0.80) 10^3/uL Eosinophils # (Manual) (0.00-0.70) 10^3/uL Basophils # (Manual) (0.00-0.10) 10^3/uL Metamyelocytes # VBG pH (7.330-7.430) VBG pCO2 (40.0-52.0) mmHg Sodium (136-145) mmol/L Potassium (3.5-5.1) mmol/L Chloride (98-107) mmol/L Carbon Dioxide (21.0-32.0) mmol/L Anion Gap BUN (7.0-18.0) mg/dL Creatinine (0.55-1.02) mg/dL Est GFR ( Amer) (>=60 mL/min/1.73m^2) Est GFR (Non-Af Amer) (>=60 mL/min/1.73m^2) BUN/Creatinine Ratio Glucose (74-106) mg/dL Lactate (0.4-2.0) mmol/L Calcium (8.5-10.1) mg/dL Total Bilirubin (0.2-1.0) mg/dL AST (15-37) U/L ALT (14-59) U/L Alkaline Phosphatase (46-116) U/L Troponin I High Sens (4.0-51.3) pg/mL Total Protein (6.4-8.2) g/dL Albumin (3.4-5.0) g/dL Globulin g/dL Albumin/Globulin Ratio Urine Color Dk yellow (YELLOW) Urine Clarity Sl cloudy (CLEAR) Urine pH 6.0 (5.0-9.0) Ur Specific [place] 1.025 (1.005-1.025) Urine Protein 30 A (NEG/TRACE) mg/dL Urine Glucose (UA) Negative (NEGATIVE) mg/dL Urine Ketones Negative (NEGATIVE) mg/dL Urine Occult Blood Large A (NEGATIVE) Urine Nitrite Positive A (NEGATIVE) Urine Bilirubin Negative (NEGATIVE) Urine Urobilinogen 0.2 (0.2-1.0) EU/dL Ur Leukocyte Esterase Moderate A (NEGATIVE) Urine RBC 2-5 A (0-2) #/HPF Urine WBC 50-75 A (NONE SEEN) #/HPF Ur Squamous Epith Cells Few A (NONE/RARE) #/LPF Urine Crystals None seen (None Seen) #/HPF Urine Bacteria Moderate A (NONE SEEN) #/HPF Urine Casts None seen (NONE SEEN) #/LPF Urine Mucus Small A (NONE SEEN) Ur Culture Indicated? [place] [place] Type A Ag Negative Influenza Type B Ag Negative RSV Antigen Not detected (NOT DETECTE) SARS-CoV-2 Ag (CV2AG) Negative (NEGATIVE) POC Glucose 174 H (74-106) mg/dL 07/02/24 07/02/24 Range/Units 16:06 18:01 WBC 7.8 (4.0-11.0) 10^3/uL RBC 3.74 L (4.20-5.40) 10^6/uL Hgb 11.8 L (12.0-16.0) g/dL Hct 37.2 (36.0-48.0) % MCV 99.5 H (81.0-99.0) fL MCH 31.6 (26.7-34.0) pg MCHC 31.7 (29.9-35.2) g/dL RDW 14.1 (11.0-15.0) % Plt Count 213 (150-450) 10^3/uL MPV 11.2 (9.5-13.5) fL Seg Neuts % (Manual) 75.0 (43.0-75.0) Lymphocytes % (Manual) 15.0 L (20.5-60.0) % Monocytes % (Manual) 8.0 (1.7-12.0) % Eosinophils % (Manual) 1.0 (0.9-7.0) % Basophils % (Manual) 0.0 L (0.2-2.0) % Metamyelocytes % 1.0 Neutrophils # (Manual) 5.85 (1.4-6.5) 10^3/uL Lymphocytes # (Manual) 1.17 L (1.20-3.80) 10^3/uL Monocytes # (Manual) 0.62 (0.30-0.80) 10^3/uL Eosinophils # (Manual) 0.07 (0.00-0.70) 10^3/uL Basophils # (Manual) 0.00 (0.00-0.10) 10^3/uL Metamyelocytes # 0.07 VBG pH 7.421 (7.330-7.430) VBG pCO2 31.4 L (40.0-52.0) mmHg Sodium 140 (136-145) mmol/L Potassium 4.0 (3.5-5.1) mmol/L Chloride 102 (98-107) mmol/L Carbon Dioxide 25.6 (21.0-32.0) mmol/L Anion Gap 16.4 BUN 24.0 H (7.0-18.0) mg/dL Creatinine 1.35 H (0.55-1.02) mg/dL Est GFR ( Amer) 46 L (>=60 mL/min/1.73m^2) Est GFR (Non-Af Amer) 38 L (>=60 mL/min/1.73m^2) BUN/Creatinine Ratio 17.8 Glucose 192 H (74-106) mg/dL Lactate 4.5 H* 1.8 (0.4-2.0) mmol/L Calcium 10.0 (8.5-10.1) mg/dL Total Bilirubin 1.4 H (0.2-1.0) mg/dL AST 23 (15-37) U/L ALT 22 (14-59) U/L Alkaline Phosphatase 87 (46-116) U/L Troponin I High Sens 6.5 (4.0-51.3) pg/mL Total Protein 7.4 (6.4-8.2) g/dL Albumin 3.5 (3.4-5.0) g/dL Globulin 3.9 g/dL Albumin/Globulin Ratio 0.9 Urine Color (YELLOW) Urine Clarity (CLEAR) Urine pH (5.0-9.0) Ur Specific [place] (1.005-1.025) Urine Protein (NEG/TRACE) mg/dL Urine Glucose (UA) (NEGATIVE) mg/dL Urine Ketones (NEGATIVE) mg/dL Urine Occult Blood (NEGATIVE) Urine Nitrite (NEGATIVE) Urine Bilirubin (NEGATIVE) Urine Urobilinogen (0.2-1.0) EU/dL Ur Leukocyte Esterase (NEGATIVE) Urine RBC (0-2) #/HPF Urine WBC (NONE SEEN) #/HPF Ur Squamous Epith Cells (NONE/RARE) #/LPF Urine Crystals (None Seen) #/HPF Urine Bacteria (NONE SEEN) #/HPF Urine Casts (NONE SEEN) #/LPF Urine Mucus (NONE SEEN) Ur Culture Indicated? Influenza Type A Ag Influenza Type B Ag RSV Antigen (NOT DETECTE) SARS-CoV-2 Ag (CV2AG) (NEGATIVE) POC Glucose (74-106) mg/dL Imaging Data CT scan - head: Attestation: I have reviewed the pertinent imaging results. ECG Data Attestation: I personally reviewed and interpreted this ECG as follows: (Sinus tachycardia at a rate of 114, no acute ST elevation or ectopy. EKG reviewed by attending physician.) Discharge Plan Discharge Chief Complaint: Altered Mental Status Clinical Impression: Acute confusion, Acute UTI Patient Disposition: Home, Self-Care Time of Disposition Decision: 18:59 Condition: Good Prescriptions / Home Meds: New cephalexin 500 mg capsule 500 mg PO Q8H 7 Days Qty: 21 0RF cephalexin 500 mg capsule 500 mg PO Q8H 7 Days Qty: 21 0RF Rx Instructions: Please start on 07/04/24 Print Language: Greenlandic Instructions: Urinary Tract Infection in Older Adults (ED) Referrals: Ese Goldberg MD [Primary Care Provider] - 1 week
[2024-07-02 15:44] LABS: Glucometer 174 mg/dL (74-106)
--- OUTSIDE RECORDS SUMMARY | 2024-07-02 15:49 | XMS_ITS | CCD ---
Author Organization [facility] Care Team Providers Care Entry Specialists Name Role Phone DR ESE GOLDBERG Primary [...] (1 source) Penicillins Drug allergy (disorder) 11-16-2014 [facility] Repository Medications Current Medications Medication Drug [...] BASO # 0.0 103/ul Normal 0.0-0.1 [facility] Comment on above: Performed By: #### C BC #### [facility] [address] [place] [address] Dr. Donovan Curtis Basophils/100 WBC (Bld) 0.6 % Normal 0.2-2.0 [facility] Comment on above: Performed By: #### C BC #### [facility] [address] [place] [address] Dr. Donovan Curtis EO # 0.3 103/ul Normal 0.0-0.7 [facility] Comment on above: Performed By: #### C BC #### [facility] [address] [place] [address] Dr. Donovan Curtis Eosinophils/100 WBC (Bld) 6.3 % Normal 0.9-7.0 [facility] Comment on above: Performed By: #### C BC #### [facility] [address] [place] [address] Dr. Donovan Curtis Erythrocyte distribution width (RBC) [Ratio] 13.7 % Normal 11.0-15.0 [facility] Comment on above: Performed By: #### C BC #### [facility] [address] [place] [address] Dr. Donovan Curtis Hematocrit (Bld) [Volume fraction] 41.0 % Normal 36.0-48.0 [facility] Comment on above: Performed By: #### C BC #### [facility] [address] [place] [address] Dr. Donovan Curtis Hemoglobin (Bld) [Mass/Vol] 13.1 g/dL Normal 12.0-16.0 [facility] Comment on above: Performed By: #### C BC #### [facility] [address] [place] [address] Dr. Donovan Curtis IG # 0.01 10e3/ul Normal 0.00-0.03 [facility] Comment on above: Performed By: #### C BC #### [facility] [address] [place] [address] Dr. Donovan Curtis IG % 0.2 % Normal 0.0-0.5 [facility] Comment on above: Performed By: #### C BC #### [facility] [address] [place] [address] Dr. Donovan Curtis LYMPH # 1.3 103/ul Normal 1.2-3.8 [facility] Comment on above: Performed By: #### C BC #### [facility] [address] [place] [address] Dr. Donovan Curtis Lymphocytes/100 WBC (Bld) 25.6 % Normal 20.5-60.0 [facility] Comment on above: Performed By: #### C BC #### [facility] [address] [place] [address] Dr. Donovan Curtis MANUAL DIFF REQ NO Normal [facility] Comment on above: Performed By: #### C BC #### [facility] [address] [place] [address] Dr. Donovan Curtis MCH (RBC) [Entitic mass] 30.9 pg Normal 26.7-34.0 [facility] Comment on above: Performed By: #### C BC #### [facility] [address] [place] [address] Dr. Donovan Curtis MCHC (RBC) [Mass/Vol] 32.0 g/dL Normal 29.9-35.2 [facility] Comment on above: Performed By: #### C BC #### [facility] [address] [place] [address] Dr. Donovan Curtis MCV (RBC) [Entitic vol] 96.7 fL Normal 81.0-99.0 [facility] Comment on above: Performed By: #### C BC #### [facility] [address] [place] [address] Dr. Donovan Curtis MONO # 0.6 103/ul Normal 0.3-0.8 [facility] Comment on above: Performed By: #### C BC #### [facility] [address] [place] [address] Dr. Donovan Curtis Monocytes/100 WBC (Bld) 11.2 % Normal 1.7-12.0 [facility] Comment on above: Performed By: #### C BC #### [facility] [address] [place] [address] Dr. Donovan Curtis NEUT # 2.8 103/ul Normal 1.4-6.5 [facility] Comment on above: Performed By: #### C BC #### [facility] [address] [address] [address] Donovan Curtis Neutrophils/100 WBC (Bld) 56.1 % Normal 43.0-75.0 [facility] Comment on above: Performed By: #### C BC #### [facility] [address] [address] [address] Donovan Curtis Platelet mean volume (Bld) [Entitic vol] 11.9 fL Normal 9.5-13.5 [facility] Comment on above: Performed By: #### C BC #### [facility] [address] [place] [address] Dr. Donovan Curtis PLT 221 103/ul Normal 150-450 [facility] Comment on above: Performed By: #### C BC #### [facility] [address] [place] [address] Dr. Donovan Curtis RBC 4.24 106/ul Normal 4.20-5.40 [facility] Comment on above: Performed By: #### C BC #### [facility] [address] [place] [address] Dr. Donovan Curtis WBC 5.1 103/ul Normal 4.0-11.0 [facility] Comment on above: Performed By: #### C BC #### [facility] [address] [place] [address] Dr. Donovan Curtis PROF CHEM 8 (BAS METB)on Anion gap [Moles/Vol] 14.8 mmol/L Normal [facility] Comment on above: Performed By: #### B MP #### [facility] [address] [place] [address] Dr. Donovan Curtis Calcium [Mass/Vol] 10.1 mg/dL Normal 8.5-10.1 [facility] Comment on above: Performed By: #### B MP #### [facility] [address] [place] [address] Dr. Donovan Curtis Chloride [Moles/Vol] 105 mmol/L Normal 98-107 [facility] Comment on above: Performed By: #### B MP #### [facility] [address] [address] [address] Donovan Curtis CO2 [Moles/Vol] 26.2 mmol/L Normal 21.0-32.0 [facility] Comment on above: Performed By: #### B MP #### [facility] [address] [address] [address] Donovan Curtis Creatinine [Mass/Vol] 1.05 mg/dL Critically high 0.55-1.02 [facility] Comment on above: Performed By: #### B MP #### [facility] [address] [address] [address] Donovan Curtis EGFR-AF GERMAN >60 Normal >=60 [facility] Comment on above: Performed By: #### B MP #### [facility] [address] [address] [address] Donovan Curtis EGFR-NON AF GERMAN 51 mL/min/1.73m2 Critically low >=60 [facility] Comment on above: Performed By: #### B MP #### [facility] [address] [address] [address] Donovan Curtis Glucose [Mass/Vol] 89 mg/dL Normal 74-106 [facility] Comment on above: Performed By: #### B MP #### [facility] [address] [address] [address] Donovan Curtis Potassium [Moles/Vol] 4.0 mmol/L Normal 3.5-5.1 [facility] Comment on above: Performed By: #### B MP #### [facility] [address] [address] [address] Donovan Curtis Sodium [Moles/Vol] 142 mmol/L Normal 136-145 [facility] Comment on above: Performed By: #### B MP #### [facility] [address] [address] [address] Donovan Curtis Urea nitrogen [Mass/Vol] 18.0 mg/dL Normal 7.0-18.0 [facility] Comment on above: Performed By: #### B MP #### [facility] [address] [place] [address] Dr. Donovan Curtis Urea nitrogen/Creatinine [Mass ratio] 17.1 mg/mg Normal [facility] Comment on above: Performed By: #### B MP #### [facility] [address] [place] [address] Dr. Donovan Curtis CBC AUTO DIFFon 07-19-2022 BASO # 0.0 103/ul Normal 0.0-0.1 [facility] Comment on above: Performed By: #### C BC #### [facility] [address] [place] [address] Dr. Donovan Curtis Basophils/100 WBC (Bld) 0.6 % Normal 0.2-2.0 [facility] Comment on above: Performed By: #### C BC #### [facility] [address] [place] [address] Dr. Donovan Curtis EO # 0.3 103/ul Normal 0.0-0.7 [facility] Comment on above: Performed By: #### C BC #### [facility] [address] [place] [address] Dr. Donovan Curtis Eosinophils/100 WBC (Bld) 5.1 % Normal 0.9-7.0 [facility] Comment on above: Performed By: #### C BC #### [facility] [address] [place] [address] Dr. Donovan Curtis Erythrocyte distribution width (RBC) [Ratio] 13.8 % Normal 11.0-15.0 [facility] Comment on above: Performed By: #### C BC #### [facility] [address] [place] [address] Dr. Donovan Curtis Hematocrit (Bld) [Volume fraction] 34.5 % Critically low 36.0-48.0 [facility] Comment on above: Performed By: #### C BC #### [facility] [address] [place] [address] Dr. Donovan Curtis Hemoglobin (Bld) [Mass/Vol] 11.4 g/dL Critically low 12.0-16.0 [facility] Comment on above: Performed By: #### C BC #### [facility] [address] [place] [address] Dr. Donovan Curtis IG # 0.01 10e3/ul Normal 0.00-0.03 [facility] Comment on above: Performed By: #### C BC #### [facility] [address] [place] [address] Dr. Donovan Curtis IG % 0.2 % Normal 0.0-0.5 [facility] Comment on above: Performed By: #### C BC #### [facility] [address] [place] [address] Dr. Donovan Curtis LYMPH # 1.5 103/ul Normal 1.2-3.8 [facility] Comment on above: Performed By: #### C BC #### [facility] [address] [place] [address] Dr. Donovan Curtis Lymphocytes/100 WBC (Bld) 29.8 % Normal 20.5-60.0 [facility] Comment on above: Performed By: #### C BC #### [facility] [address] [place] [address] Dr. Donovan Curtis MANUAL DIFF REQ NO Normal [facility] Comment on above: Performed By: #### C BC #### [facility] [address] [place] [address] Dr. Donovan Curtis MCH (RBC) [Entitic mass] 31.1 pg Normal 26.7-34.0 [facility] Comment on above: Performed By: #### C BC #### [facility] [address] [place] [address] Dr. Donovan Curtis MCHC (RBC) [Mass/Vol] 33.0 g/dL Normal 29.9-35.2 [facility] Comment on above: Performed By: #### C BC #### [facility] [address] [place] [address] Dr. Donovan Curtis MCV (RBC) [Entitic vol] 94.0 fL Normal 81.0-99.0 [facility] Comment on above: Performed By: #### C BC #### [facility] [address] [place] [address] Dr. Donovan Curtis MONO # 0.7 103/ul Normal 0.3-0.8 [facility] Comment on above: Performed By: #### C BC #### [facility] [address] [place] [address] Dr. Donovan Curtis Monocytes/100 WBC (Bld) 13.6 % Critically high 1.7-12.0 [facility] Comment on above: Performed By: #### C BC #### [facility] [address] [place] [address] Dr. Donovan Curtis NEUT # 2.5 103/ul Normal 1.4-6.5 [facility] Comment on above: Performed By: #### C BC #### [facility] [address] [place] [address] Dr. Donovan Curtis Neutrophils/100 WBC (Bld) 50.7 % Normal 43.0-75.0 [facility] Comment on above: Performed By: #### C BC #### [facility] [address] [place] [address] Dr. Donovan Curtis Platelet mean volume (Bld) [Entitic vol] 11.3 fL Normal 9.5-13.5 [facility] Comment on above: Performed By: #### C BC #### [facility] [address] [place] [address] Dr. Donovan Curtis PLT 179 103/ul Normal 150-450 [facility] Comment on above: Performed By: #### C BC #### [facility] [address] [place] [address] Dr. Donovan Curtis RBC 3.67 106/ul Critically low 4.20-5.40 [facility] Comment on above: Performed By: #### C BC #### [facility] [address] [place] [address] Dr. Donovan Curtis WBC 4.9 103/ul Normal 4.0-11.0 [facility] Comment on above: Performed By: #### C BC #### [facility] [address] [place] [address] Dr. Donovan Curtis LIPID PROFILEon 03-15-2023 CHOL-HDL RATIO NORM SEE BELOW Normal [facility] Comment on above: Result Comment: 3.3 - 4.4 LOW RISK 4.4 - 7.1 AVERAGE RISK 7.1 - 11.0 MODERATE RISK >11.0 HIGH RISK Performed By: #### L IPID, CMP #### [facility] [address] [address] [address] Donovan Curtis Cholesterol [Mass/Vol] 105 mg/dL Normal <=200 [facility] Comment on above: Performed By: #### L IPID, CMP #### [facility] [address] [address] [address] Donovan Curtis Cholesterol in HDL [Mass/Vol] 45 mg/dL Normal 40-60 [facility] Comment on above: Performed By: #### L IPID, CMP #### [facility] [address] [address] [address] Donovan Curtis Cholesterol in LDL [Mass/Vol] 42.2 mg/dL Normal [facility] Comment on above: Performed By: #### L IPID, CMP #### [facility] [address] [address] [address] Donovan Curtis Cholesterol.total/C holesterol in HDL [Mass ratio] 2.3 {ratio} Normal [facility] Comment on above: Performed By: #### L IPID, CMP #### [facility] [address] [address] [address] Donovan Curtis HDL NORMAL > or = 60 mg/dl - LO W CARDIOVASCULAR RISK <40 mg/dl - HIGH CARDIOVASCULAR RISK Normal [facility] Comment on above: Performed By: #### L IPID, CMP #### [facility] [address] [place], [place] [address] Dr. Donovan Curtis LDL CALC NORMAL SEE BELOW Normal [facility] Comment on above: Result Comment: <100 mg/dl OPTIMAL 100 - 129 mg/dl NEAR OR ABOVE OPTIMAL 130 - 159 mg/dl BORDERLINE HIGH 160 - 189 mg/dl HIGH >190 mg/dl VERY HIGH Performed By: #### L IPID, CMP #### [facility] [address] [address] [address] Donovan Curtis Triglyceride [Mass/Vol] 89 mg/dL Normal <=150 [facility] Comment on above: Performed By: #### L IPID, CMP #### [facility] [address] [place] [address] Dr. Donovan Curtis VLDL CALC 17.8 mg/dL Normal [facility] Comment on above: Performed By: #### L IPID, CMP #### [facility] [address] [place] [address] Dr. Donovan Curtis PROF 14(COMP METB)on 023 Albumin [Mass/Vol] 3.1 g/dL Critically low 3.4-5.0 [facility] Comment on above: Performed By: #### L IPID, CMP #### [facility] [address] [place] [address] Dr. Donovan Curtis Albumin/Globulin [Mass ratio] 1.1 {ratio} Normal [facility] Comment on above: Performed By: #### L IPID, CMP #### [facility] [address] [place] [address] Dr. Donovan Curtis ALP [Catalytic activity/Vol] 66 U/L Normal 46-116 [facility] Comment on above: Performed By: #### L IPID, CMP #### [facility] [address] [place] [address] Dr. Donovan Curtis ALT [Catalytic activity/Vol] 16 U/L Normal 14-59 [facility] Comment on above: Performed By: #### L IPID, CMP #### [facility] [address] [place] [address] Dr. Donovan Curtis Anion gap [Moles/Vol] 12.5 mmol/L Normal [facility] Comment on above: Performed By: #### L IPID, CMP #### [facility] [address] [place] [address] Dr. Donovan Curtis AST [Catalytic activity/Vol] 23 U/L Normal 15-37 [facility] Comment on above: Performed By: #### L IPID, CMP #### [facility] [address] [address] [address] Donovan Curtis Bilirubin [Mass/Vol] 1.0 mg/dL Normal 0.2-1.0 [facility] Comment on above: Performed By: #### L IPID, CMP #### [facility] [address] [place] [address] Dr. Donovan Curtis Calcium [Mass/Vol] 9.8 mg/dL Normal 8.5-10.1 [facility] Comment on above: Performed By: #### L IPID, CMP #### [facility] [address] [address] [address] Donovan Curtis Chloride [Moles/Vol] 109 mmol/L Critically high 98-107 [facility] Comment on above: Performed By: #### L IPID, CMP #### [facility] [address] [place] [address] Dr. Donovan Curtis CO2 [Moles/Vol] 26.8 mmol/L Normal 21.0-32.0 [facility] Comment on above: Performed By: #### L IPID, CMP #### [facility] [address] [place] [address] Dr. Donovan Curtis Creatinine [Mass/Vol] 0.92 mg/dL Normal 0.55-1.02 [facility] Comment on above: Performed By: #### L IPID, CMP #### [facility] [address] [place] [address] Dr. Donovan Curtis EGFR-AF GERMAN >60 Normal >=60 [facility] Comment on above: Performed By: #### L IPID, CMP #### [facility] [address] [place] [address] Dr. Donovan Curtis EGFR-NON AF GERMAN 59 mL/min/1.73m2 Critically low >=60 [facility] Comment on above: Performed By: #### L IPID, CMP #### [facility] [address] [place] [address] Dr. Donovan Curtis Globulin (S) [Mass/Vol] 2.7 g/dL Normal [facility] Comment on above: Performed By: #### L IPID, CMP #### [facility] [address] [address] [address] Donovan Curtis Glucose [Mass/Vol] 87 mg/dL Normal 74-106 [facility] Comment on above: Performed By: #### L IPID, CMP #### [facility] [address] [place] [address] Dr. Donovan Curtis Potassium [Moles/Vol] 4.3 mmol/L Normal 3.5-5.1 [facility] Comment on above: Performed By: #### L IPID, CMP #### [facility] [address] [place] [address] Dr. Donovan Curtis Protein [Mass/Vol] 5.8 g/dL Critically low 6.4-8.2 [facility] Comment on above: Performed By: #### L IPID, CMP #### [facility] [address] [place] [address] Dr. Donovan Curtis Sodium [Moles/Vol] 144 mmol/L Normal 136-145 [facility] Comment on above: Performed By: #### L IPID, CMP #### [facility] [address] [place] [address] Dr. Donovan Curtis Urea nitrogen [Mass/Vol] 22.0 mg/dL Critically high 7.0-18.0 [facility] Comment on above: Performed By: #### L IPID, CMP #### [facility] [address] [place] [address] Dr. Donovan Curtis Urea nitrogen/Creatinine [Mass ratio] 23.9 mg/mg Normal [facility] Comment on above: Performed By: #### L IPID, CMP #### [facility] [address] [place] [address] Dr. Donovan Curtis BNPon 12-13-2021 Natriuretic peptide B (Bld) [Mass/Vol] 190.0 pg/mL Normal <=1,800.0 [facility] Comment on above: Performed By: #### B [employer]ILOT PLANT TECHNICIAN, BMP #### [facility] [address] [place] [address] Dr. Donovan Curtis CBC AUTO DIFFon 12-13-2021 BASO # 0.0 103/ul Normal 0.0-0.1 [facility] Comment on above: Performed By: #### C BC #### [facility] [address] [place] [address] Dr. Donovan Curtis Basophils/100 WBC (Bld) 0.5 % Normal 0.2-2.0 [facility] Comment on above: Performed By: #### C BC #### [facility] [address] [place] [address] Dr. Donovan Curtis EO # 0.2 103/ul Normal 0.0-0.7 [facility] Comment on above: Performed By: #### C BC #### [facility] [address] [place] [address] Dr. Donovan Curtis Eosinophils/100 WBC (Bld) 2.9 % Normal 0.9-7.0 [facility] Comment on above: Performed By: #### C BC #### [facility] [address] [place] [address] Dr. Donovan Curtis Erythrocyte distribution width (RBC) [Ratio] 14.1 % Normal 11.0-15.0 [facility] Comment on above: Performed By: #### C BC #### [facility] [address] [place] [address] Dr. Donovan Curtis Hematocrit (Bld) [Volume fraction] 42.0 % Normal 36.0-48.0 [facility] Comment on above: Performed By: #### C BC #### [facility] [address] [place] [address] Dr. Donovan Curtis Hemoglobin (Bld) [Mass/Vol] 13.1 g/dL Normal 12.0-16.0 [facility] Comment on above: Performed By: #### C BC #### [facility] [address] [place] [address] Dr. Donovan Curtis IG # 0.01 10e3/ul Normal 0.00-0.03 [facility] Comment on above: Performed By: #### C BC #### [facility] [address] [place] [address] Dr. Donovan Curtis IG % 0.2 % Normal 0.0-0.5 [facility] Comment on above: Performed By: #### C BC #### [facility] [address] [place] [address] Dr. Donovan Curtis LYMPH # 1.2 103/ul Normal 1.2-3.8 [facility] Comment on above: Performed By: #### C BC #### [facility] [address] [place] [address] Dr. Donovan Curtis Lymphocytes/100 WBC (Bld) 20.5 % Normal 20.5-60.0 [facility] Comment on above: Performed By: #### C BC #### [facility] [address] [place] [address] Dr. Donovan Curtis MANUAL DIFF REQ NO Normal [facility] Comment on above: Performed By: #### C BC #### [facility] [address] [place] [address] Dr. Donovan Curtis MCH (RBC) [Entitic mass] 29.7 pg Normal 26.7-34.0 [facility] Comment on above: Performed By: #### C BC #### [facility] [address] [place] [address] Dr. Donovan Curtis MCHC (RBC) [Mass/Vol] 31.2 g/dL Normal 29.9-35.2 [facility] Comment on above: Performed By: #### C BC #### [facility] [address] [place] [address] Dr. Donovan Curtis MCV (RBC) [Entitic vol] 95.2 fL Normal 81.0-99.0 [facility] Comment on above: Performed By: #### C BC #### [facility] [address] [place] [address] Dr. Donovan Curtis MONO # 0.7 103/ul Normal 0.3-0.8 [facility] Comment on above: Performed By: #### C BC #### [facility] [address] [place] [address] Dr. Donovan Curtis Monocytes/100 WBC (Bld) 11.7 % Normal 1.7-12.0 [facility] [facility] Comment on above: Performed By: #### C BC #### [facility] [address] [place] [address] Dr. Donovan Curtis NEUT # 3.7 103/ul Normal 1.4-6.5 [facility] Comment on above: Performed By: #### C BC #### [facility] [address] [place] [address] Dr. Donovan Curtis Neutrophils/100 WBC (Bld) 64.2 % Normal 43.0-75.0 [facility] Comment on above: Performed By: #### C BC #### [facility] [address] [place] [address] Dr. Donovan Curtis Platelet mean volume (Bld) [Entitic vol] 11.2 fL Normal 9.5-13.5 [facility] Comment on above: Performed By: #### C BC #### [facility] [address] [place] [address] Dr. Donovan Curtis PLT 240 103/ul Normal 150-450 [facility] Comment on above: Performed By: #### C BC #### [facility] [address] [place] [address] Dr. Donovan Curtis RBC 4.41 106/ul Normal 4.20-5.40 [facility] Comment on above: Performed By: #### C BC #### [facility] [address] [place] [address] Dr. Donovan Curtis WBC 5.8 103/ul Normal 4.0-11.0 [facility] Comment on above: Performed By: #### C BC #### [facility] [address] [place] [address] Dr. Donovan Curtis PROF CHEM 8 (BAS METB)on Anion gap [Moles/Vol] 13.7 mmol/L Normal [facility] Comment on above: Performed By: #### B PILOT PLANT TECHNICIAN, BMP #### [facility] [address] [place] [address] Dr. Donovan Curtis Calcium [Mass/Vol] 10.3 mg/dL Critically high 8.5-10.1 [facility] Comment on above: Performed By: #### B PILOT PLANT TECHNICIAN, BMP #### [facility] [address] [address] [address] Donovan Curtis Chloride [Moles/Vol] 104 mmol/L Normal 98-107 [facility] Comment on above: Performed By: #### B PILOT PLANT TECHNICIAN, BMP #### [facility] [address] [address] [address] Donovan Curtis CO2 [Moles/Vol] 26.6 mmol/L Normal 21.0-32.0 [facility] Comment on above: Performed By: #### B PILOT PLANT TECHNICIAN, BMP #### [facility] [address] [address] [address] Donovan Curtis Creatinine [Mass/Vol] 1.04 mg/dL Critically high 0.55-1.02 [facility] Comment on above: Performed By: #### B PILOT PLANT TECHNICIAN, BMP #### [facility] [address] [address] [address] Donovan Curtis EGFR-AF GERMAN >60 Normal >=60 [facility] Comment on above: Performed By: #### B PILOT PLANT TECHNICIAN, BMP #### [facility] [address] [address] [address] Donovan Curtis EGFR-NON AF GERMAN 51 mL/min/1.73m2 Critically low >=60 [facility] Comment on above: Performed By: #### B PILOT PLANT TECHNICIAN, BMP #### [facility] [address] [address] [address] Donovan Curtis Glucose [Mass/Vol] 74 mg/dL Normal 74-106 [facility] Comment on above: Performed By: #### B PILOT PLANT TECHNICIAN, BMP #### [facility] [address] [address] [address] Donovan Curtis Potassium [Moles/Vol] 4.3 mmol/L Normal 3.5-5.1 [facility] Comment on above: Performed By: #### B PILOT PLANT TECHNICIAN, BMP #### [facility] [address] [address] [address] Donovan Curtis Sodium [Moles/Vol] 140 mmol/L Normal 136-145 [facility] Comment on above: Performed By: #### B PILOT PLANT TECHNICIAN, BMP #### [facility] [address] [address] [address] Donovan Curtis Urea nitrogen [Mass/Vol] 19.0 mg/dL Critically high 7.0-18.0 [facility] Comment on above: Performed By: #### B PILOT PLANT TECHNICIAN, BMP #### [facility] [address] [address] [address] Donovan Curtis Urea nitrogen/Creatinine [Mass ratio] 18.3 mg/mg [facility] Comment on above: Performed By: #### B PILOT PLANT TECHNICIAN, BMP #### [facility] [address] [address] [address] Donovan Curtis Encounters Encounter Date Encounter Type Care Provider Facility Start: 05-18-2023 End: 05-18-2023 ambulatory Ese Goldberg Other [facility] Other Start: 05-18-2023 Telephone encounter Ese Ashlyn [facility] Start: 05-16-2023 End: 05-16-2023 ambulatory Ese Ashlyn Other [facility] Other Start: 05-16-2023 Telephone encounter Ese Ashlyn [facility] Start: 05-01-2023 End: 05-01-2023 ambulatory sEe Goldberg Other [facility] Other Start: 05-01-2023 Sbsq nursing facil care/day minor complj 15 min Ese Goldberg [facility] Start: 03-14-2023 End: 03-14-2023 ambulatory Ese Goldberg Other [facility] Other Start: 03-14-2023 Telephone encounter Ese Ashlyn [facility] Start: 02-13-2023 End: 02-13-2023 ambulatory Ese Goldberg Other [facility] Other Start: 02-13-2023 Sbsq nursing facil care/day minor complj 15 min Ese Goldberg [facility] Start: 02-07-2023 End: 02-07-2023 ambulatory Ese Goldberg Other [facility] Other Start: 02-07-2023 Telephone encounter Ese Goldberg [facility] Start: 11-29-2022 End: 11-29-2022 ambulatory Ese Goldberg Other [facility] Other Start: 11-29-2022 Sbs nursing facil care/day minor complj 15 min [facility] Start: 08-18-2022 End: 08-18-[address] ESE GOLDBERG Facility:[facility] Start: 07-19-2022 End: 07-19-[address] ESE GOLDBERG Facility:[facility] Start: 12-13-2021 End: 12-13-[address] ESE GOLDBERG Facility:[facility] Payers Date Payer Category Payer Medicare [id number] 1960 Medicaid [id number] 1960 Medicare [id number] 1945 Unknown [id number] [id number] [id number] 1945 Unknown [id number] 2.16.84 [id number] 1945 Unknown [id number] 2.16.84 [id number] Social History Date Type Detail Facility Sex Assigned At [facility] Other Evaluation note 05-18-2023 Note Date & Type Note Facility 05-18-2023 Evaluation note Encounter Date Diagnosis Assessment Notes May, Recurrent major depressive disorder, in partial remission (ICD-10 - F33.41) [facility] Other Evaluation note 05-16-2023 Note Date & Type Note Facility 05-16-2023 Evaluation note Encounter Date Diagnosis Assessment Notes May, Recurrent major depressive disorder, in partial remission (ICD-10 - F33.41) [facility] Other Evaluation note 05-01-2023 Note Date & Type Note Facility 05-01-2023 Evaluation note Encounter Date Diagnosis Assessment Notes Apr, Essential (primary) hypertension (ICD-10 - I10) Continue present med Apr, Other fatigue (ICD-10 - R53.83) d/w w nursing staff. Will check for COVID and UTI Apr, Recurrent major depressive disorder, in partial remission (ICD-10 - F33.41) stable on present med [facility] Other Evaluation note 03-14-2023 Note Date & Type Note Facility 03-14-2023 Evaluation note Encounter Date Diagnosis Assessment Notes Mar, Recurrent major depressive disorder, in partial remission (ICD-10 - F33.41) [facility] Other Evaluation note 02-13-2023 Note Date & [...] - R60.9) Elevated legs. [facility] Other Evaluation note 11-29-2022 Note Date & [...] to encourage elevation. On moderate strength diuretic. [facility] Other Evaluation note Note Date & Type Note Facility Evaluation note No Information [facility] [facility] Other History general Narrative - Reported Note Date & Type Note Facility History general Narrative - Reported Type Medical History Borderline DM Medical History Hyperlipids Medical History HTN Medical History GERD Medical History Seizures Medical History DJD Surgical History oophorectomy 2004 [facility] Other Summary Purpose Family History No Family [...] BE BASED ON THE PRIMARY CLINICAL RECORDS. [employer] provides no warranty or guarantee of the accuracy or completeness of information in this document.
[2024-07-02] MEDS: 0.9 % SODIUM CHLORIDE 1,000 ML 999 ML IV (16:11)
[2024-07-02 16:23] LABS: Hematocrit 37.2 % (36.0-48.0); Hemoglobin 11.8 g/dL (12.0-16.0); Mean Corpuscular HGB Conc 31.7 g/dL (29.9-35.2); Mean Corpuscular Hemoglobin 31.6 pg (26.7-34.0); Mean Corpuscular Volume 99.5 fL (81.0-99.0); Mean Platelet Volume 11.2 fL (9.5-13.5); Platelet Count 213 10^3/uL (150-450); Red Blood Count 3.74 10^6/uL (4.20-5.40); Red Cell Distribution Width 14.1 % (11.0-15.0); White Blood Count 7.8 10^3/uL (4.0-11.0)
[2024-07-02 16:34] LABS: PCO2 VBG 31.4 mmHg (40.0-52.0); pH VBG 7.421 (7.330-7.430)
[2024-07-02 16:35] LABS: Alanine Aminotransferase 22 U/L (14-59); Albumin Globulin Ratio 0.9; Albumin Level 3.5 g/dL (3.4-5.0); Alkaline Phosphatase 87 U/L (46-116); Anion Gap 16.4; Aspartate Amino Transferase 23 U/L (15-37); BUN Creatinine Ratio 17.8; Bilirubin Total 1.4 mg/dL (0.2-1.0); Carbon Dioxide 25.6 mmol/L (21.0-32.0); Chloride 102 mmol/L (98-107); Estimated GFR (African America 46 (>=60 mL/min/1.73m^2); Estimated GFR (Non-African Ame 38 (>=60 mL/min/1.73m^2); Globulin 3.9 g/dL; Glucose 192 mg/dL (74-106); Sodium 140 mmol/L (136-145); Total Protein 7.4 g/dL (6.4-8.2)
[2024-07-02 16:37] LABS: Troponin I High Sensitivity 6.5 pg/mL (4.0-51.3)
[2024-07-02 16:39] LABS: Bilirubin Urine NEGATIVE (NEGATIVE); Blood Urine LARGE (NEGATIVE); Clarity Urine SL CLOUDY (CLEAR); Color Urine DK YELLOW (YELLOW); Glucose Urine UA NEGATIVE (NEGATIVE); Ketones Urine NEGATIVE (NEGATIVE); Leukocyte Esterase Urine MODERATE (NEGATIVE); Nitrite Urine POSITIVE (NEGATIVE); Protein Urine 30 mg/dL (NEG/TRACE); Specific Gravity Urine 1.025 (1.005-1.025); Urobilinogen Urine 0.2 EU/dL (0.2-1.0)
[2024-07-02 16:39] LABS: Lactate/Lactic Acid 4.5 mmol/L (0.4-2.0)
[2024-07-02 16:44] LABS: Influenza Virus A Antigen Negative; Influenza Virus B Antigen Negative; Internal Control Within Normal Limits; Respiratory Syncytial Virus Not Detected (NOT DETECTE); SARS-CoV-2 Ag NEGATIVE (NEGATIVE)
[2024-07-02 16:47] LABS: WBC Urine 50-75 #/HPF (NONE SEEN)
[2024-07-02 16:48] LABS: Bacteria Urine MODERATE #/HPF (NONE SEEN); Cast Seen? NONE SEEN #/LPF (NONE SEEN); Crystals Seen? None Seen #/HPF (None Seen); Mucus Urine SMALL (NONE SEEN); Squamous Epithelial Cell Urine FEW #/LPF (NONE/RARE); Urine Culture Indicated YES-FRMC
[2024-07-02 16:56] LABS: Eosinophils Absolute Manual 0.07 10^3/uL (0.00-0.70); Lymphocytes Absolute Manual 1.17 10^3/uL (1.20-3.80); Metamyelocytes Absolute Manual 0.07; Monocytes Absolute Manual 0.62 10^3/uL (0.30-0.80); Segmented Neut Absolute Manual 5.85 10^3/uL (1.4-6.5)
[2024-07-02] MEDS: CEFTRIAXONE 2,000 MG in 0.9 % SODIUM CHLORIDE 100 ML 200 MG IV (17:16)
[2024-07-02 18:33] LABS: Lactate/Lactic Acid 1.8 mmol/L (0.4-2.0)
[2024-07-03 03:14] LABS: A. calcoaceticus-baumannii Cpx NOT DETECTED (NOT DETECTE); Bacteroides fragilis NOT DETECTED (NOT DETECTE); Candida albicans NOT DETECTED (NOT DETECTE); Candida auris NOT DETECTED (NOT DETECTE); Candida glabrata NOT DETECTED (NOT DETECTE); Candida krusei NOT DETECTED (NOT DETECTE); Candida parapsilosis NOT DETECTED (NOT DETECTE); Candida tropicalis NOT DETECTED (NOT DETECTE); Cryptococcus neoformans/gattii NOT DETECTED (NOT DETECTE); Enterobacter cloacae complex NOT DETECTED (NOT DETECTE); Enterobacterales NOT DETECTED (NOT DETECTE); Enterococcus faecalis NOT DETECTED (NOT DETECTE); Enterococcus faecium NOT DETECTED (NOT DETECTE); Haemophilus influenzae NOT DETECTED (NOT DETECTE); Klebsiella aerogenes NOT DETECTED (NOT DETECTE); Klebsiella pneumoniae group NOT DETECTED (NOT DETECTE); Listeria monocytogenes NOT DETECTED (NOT DETECTE); Neisseria meningitidis NOT DETECTED (NOT DETECTE); Proteus spp. NOT DETECTED (NOT DETECTE); Pseudomonas aeruginosa NOT DETECTED (NOT DETECTE); Salmonella spp. NOT DETECTED (NOT DETECTE); Serratia marcescens NOT DETECTED (NOT DETECTE); Staphylococcus epidermidis NOT DETECTED (NOT DETECTE); Staphylococcus lugdunensis NOT DETECTED (NOT DETECTE); Staphylococcus spp. NOT DETECTED (NOT DETECTE); Stenotrophomonas maltophilia NOT DETECTED (NOT DETECTE); Streptococcus agalactiae NOT DETECTED (NOT DETECTE); Streptococcus pneumoniae NOT DETECTED (NOT DETECTE); Streptococcus pyogenes NOT DETECTED (NOT DETECTE); Streptococcus spp. NOT DETECTED (NOT DETECTE)
[2024-07-03 05:47] LABS: Source BLOOD
== END 2024-07-02 19:44 | disposition home or self-care (01) ==
PROVIDERS: Physician Assistant; Emergency Provider Emergency Medicine; PCP Family Medicine
DX: N39.0 Urinary tract infection, site not specified (principal); F03.90 Unspecified dementia, unspecified severity, without behavioral disturbance, psychotic disturbance, mood disturbance, and anxiety; R00.0 Tachycardia, unspecified; R41.0 Disorientation, unspecified
CPT/HCPCS: 36415; 70450; 71045; 80053; 81001; 82800; 83605; 84484; 85007; 85027; 87040; 87086; 87150; 87186; 87420; 87804; 87811; 93005; 96361; 96365; 99285; J0696

== ENCOUNTER 2025-04-08 12:39 | Outpatient (REF) | payer MEDICARE, MEDICAID, SELFPAY ==
--- OUTSIDE RECORDS SUMMARY | 2025-04-08 12:47 | XMS_ITS | Continuity of Care Document ---
Author Organization [facility] Address [address] [place] [id number] Care Team Providers Care Educational Aide Name Role Phone Ese Goldberg MD Attending Physician Medications Medication Frequency Instructions Diagnosis Start Date End Date Status Last Administered acetaminophen 500 mg tablet Three times a day 2 tablets, ORAL, Three times a day, Give 1000 mg by mouth three times a day for pain 06/13/20233104Lbuzrv81/02/2025 05:15 AMacetaminophen 500 mg tabletOnce A Day - PRN2 tablets, oral, Once A Day - PRN, fever 04/28/20243048Khfotu96/23/2024 05:13 PMAnti-Diarrheal (loperamide) (loperamide) 2 mg tabletas needed, do not exceed 4 tabs in 24 hrs2 tablet, ORAL, as needed, do not exceed 4 tabs in 24 hrs, Give 2 tablet by mouth as needed for Diarrhea GIVE 2 TABLETS AFTER FIRST LOOSE STOOL AND Give 1 tablet by mouth as need 05/28/20234648Gxqokm96/23/2024 10:53 PMAnti-Diarrheal (loperamide) (loperamide) 2 mg tabletsubsequently after initial dose of 2 tablets1 tablet, oral, subsequently after initial dose of 2 tablets, Give 2 tablet by mouth as needed for Diarrhea GIVE 2 TABLETS AFTER FIRST LOOSE STOOL AND Give 1 tablet by mouth as need 05/28/2023ctiveArtificial Tears (polyvin alc) (polyvinyl alcohol) 1.4 % drops Every day as needed1 drop, IN BOTH EYES, Every day as needed, Instill 1 drop in both eyes as needed for each eye 09/15/2020ctiveatorvastatin 20 mg tabletAt Bedtime1 tablet, ORAL, At Bedtime, Give 1 tablet orally at bedtime for hyperlipidemia 11/16/20249834Yndbpp52/01/2025 08:18 PMBiofreeze (menthol) (menthol) 4 % gelThree Times A Day - PRN1 application, topical, Three Times A Day - PRN, apply to affected areas topically as needed for pain 05/28/2023ctiveCal-Gest Antacid (calcium carbonate) 200 mg calcium (500 mg) tablet,chewableEvery 4 hours as needed2 tablets, ORAL, Every 4 hours as needed, GIVE 2 TABS BY MOUTH EVERY 4 HOURS NEEDED FOR INDIGESTION 05/12/2016Activeclonazepam 0.5 mg tabletOnce A Day0.25, oral, Once A Day, give half tab to= 0.65twJ68.9 : Anxiety disorder, uadcowgqvjl14/10/2024ctive 04/07/2025 04:46 AMclonazepam 0.5 mg tabletAt Bedtime1 tablet, ORAL, At Bedtime F33.41 : Major depressive disorder, recurrent, in partial mmywqovmh37/13/2025 Mjknss8704/06/2025 08:18 PMcranberry 450 mg tabletOnce A Dayone tablet, oral, Once A DayN39.0 : Urinary tract infection, site not vlbcqpsep41/28/2025tive 04/07/2025 05:15 AMEnemeez (docusate sodium) 283 mg/5 mL enemaOnce A Day - PRN1 enema, rectal, Once A Day - PRN, Step 3: If no BM by morning of day 4, administer 1 Enemeez MicroEnema in the morning. Indication for use: Constipation Step 4: If no BM within 1 hour of administering Enemeez, contact provider. 03/19/2025tivefamotidine 20 mg tabletEvery day1 tablet, ORAL, Every day, Give 1 tablet by mouth one time a day for GI upset 12/21/20211889Nestpj09/02/2025 05:15 AMloratadine 10 mg tabletEvery day1 tablet, ORAL, Every day, Give 1 tablet by mouth one time a day for allergies 06/03/20211286Zohcid73/02/2025 05:15 AMMiralax (polyethylene glycol 3350) 17 gram/dose powderOnce A Day - HGM91hl (1 capful), oral, Once A Day - PRN, Step 1: If no BM by Day 2, Mix 17gm (1 capful) in 4-8oz beverage of choice in the morning. Indication for use: Constipation 5ActiveMiralax (polyethylene glycol 3350) 17 gram/dose powderOnce A Day - HFL76mg (1 Capful), oral, Once A Day - PRN, Step 2: If no BM by Day 3, Give 17gm (1 Capful) in 4-8 ounces of beverage of choice. Indication for use: Constipation 03/19/2025tivemirtazapine 15 mg tabletOnce A Day1 tablet, oral, Once A Day, at bedtime for appetite 06/10/20230883Cjuxbk84/01/2025 08:18 PMnystatin 100,000 unit/gram powderThree Times A Dayone application, topical, Three Times A Day 11/26/20242755Wcqtlu01/01/2025 11:16 PMspironolactone 25 mg tabletEvery day1 tablet, ORAL, Every day, Give 1 tablet by mouth one time a day for pitting BLE edema 09/23/20218069Gywvne97/02/2025 05:15 AMTriad Wound Dressing (wound dressings) - pasteOnce A Day on Mon, Wed, Fri1 application, topical, Once A Day on Mon, Wed, Fri, cleanse MASD right inner buttock. 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, severe, with psychotic disturbance F02.C2 03/23/2022 Active ICD-10 Dysphagia, oropharyngeal phase R13.12 12/24 Active ICD-10 Mild protein-calorie malnutrition E44.1 Active ICD-10 Major depressive dis order, recurrent, in partial remission F33.41 07/03/2022 Active ICD-10 Hallucinations, unspecified R44.3 12/25/19 16 Active ICD-10 Essential (primary) hypertension I10 Active ICD-10 Anxiety disorder, unspecified F41.9 2015 Active ICD-10 Insomnia, unspecified G47.00 12/25/2015 Act laura ICD-10 Other peripheral vertigo, bilateral H81.393 12/25/2015 Active ICD-10 Chronic angle-closur e glaucoma, unspecified eye, stage unspecified H40.2290 12/25/2015 Active ICD-10 Low back pain, unspecified M54.50 3 Active ICD-10 Muscle weakness (generalized) M62.81 2023 Active ICD-10 Cognitive communication deficit R41.841 07/2023 Active ICD-10 Other feeding difficulties R63.39 3 Active ICD-10 Encounter for immunization Z23 5 Active ICD-10 Limitation of activities due to disability Z73. 6 03/13/2024 Active Current Allergies and Intolerances Category Substance Type Reaction Severity Begin Date Status Drug allergy Penicillins Allergy 12/25/2015Active Vital Signs Height: 62.0 in Date / Time Temperature Pulse (per minute) Respirations (per minute) Systolic BP (mmHg) Diastolic BP (mmHg) O2 Saturation (%) Weight BMI 04/07/2025 07:17 AM 98.4 F 76 16 94.0 03/07/2025 09:46 PM 160.6 lbs29.371 01:53 PM97.6 F 02/08/2025 03:13 AM97.0 F 02/07/2025 08:47 AM97.9 F 02/06/2025 11:41 PM98.1 F 02/06/2025 04:28 PM97.6 F 02/06/2025 09:29 AM97.7 F 02/06/2025 12:57 AM98.0 F 02/05/2025 05:11 PM97.9 F 02/05/2025 11:41 AM98.1 F 02/05/2025 11:35 AM 162.0 lbs29.63002/03/2025 11:34 PM 160.9 lbs29.4309 12:20 PM [id number] 01/12/2025 08:49 AM 162.0 lbs29.6308 05:54 PM 99399962007.0 09/09/2024 01:42 AM 32893141520.0 08/04/2024 09:05 AM [id number] 07/12/2024 03:37 AM [id number] 07/02/2024 02:32 PM [id number] 07/01/2024 11:25 AM [id number] 06/08/2024 04:48 PM [id number] 05/07/2024 05:45 PM [id number] 04/07/2024 09:12 PM [id number] Advance Directives Directive Note Full Code Insurance Providers Payer Policy type Group Name Group number Policy ID Address Ph one Medicare A Medicare Part A [id number]: Fax:[employer] [id number]: Fax:[employer] Part BCommercial Insurance [id number]: Fax:Vaccinations - [employer] Part BLike Medicare Part B [id number]: [facility]ax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 Date Status Dose Series Complete COVID-19 Vaccine Moderna [id number] 03/02/2025 Completed 1 COVID-19 VaccineModerna 2023-/5CompletedBooster Monovalent COVID-19 VaccineModerna 2023-/4CompletedBooster Monovalent COVID-19 VaccinePfizer-BioNTech //4CompletedBooster 2 - Monovalent COVID-19 VaccineModerna 2022-//3CompletedBooster Monovalent COVID-19 Vaccine 3CompletedBooster 2 - Bivalent COVID-19 Vaccine 02/16/2022ompletedBooster 1 - Bivalent COVID-19 Vaccine [id number] COVID-19 Vaccine [id number] COVID-19 Vaccine 3855Lickhncge4 COVID-19 Vaccine 5391Cdbawhdmw8 Influenza VaccineSanofi Kbmulhs19/01/2025Completed Influenza Vaccinesanofi pasteur fluzone high dose4Completed Influenza Vaccine 3Completed Pneumococcal Vaccine 3Completed Pneumococcal Vaccine 1Completed Pneumococcal Vaccine 09/11/2015Completed RSV ZetcnfgAAW48/20/2023Completed Procedures Not available for this record Results Name Date Time Positive/Negative Value Unit Range COVID-19 Test COVID-19 Test Viral Wzmgfen2504/07/2025Negative Goals Goal Date Resident's code status decision will be honored daily through next review 06/04/2025 Resident will express need and acceptanc e of placement through next review 06/04/2025 Resident will participate in leave of absence (THIERNO) with family/friends and follow facility THIERNO rules through next review. 06/04/2025 The resident will have fewer episodes of behaviors by review date 06/04/2025 The resident will have improved mood sta te through the review date 06/04/2025 The resident will maintain t he ability to seek social contact and stimulation through the review date 06/04/2025 Resident will enjoy activity of choice d aily/weekly through next review 06/04/2025 Resident will remain safe in facility and not leave facility unattended through next review 06/04/2025 Resident will have BM at least every 3 d ays until next review 06/04/2025 Maintain appropriate oral hygiene and de ntal status 06/04/2025 Skin will be free of breakdown through n ext review . 06/04/2025 Resident will not have an in terruption in normal activities due to pain through the next review. 06/04/2025 ROM will be maintained thru review 06/04 Will be free of s/s dehydrat ion, fluid overload, electrolyte imbalance through next review 06/04/2025 Meet nutritional needs despite varied in take 06/04/2025 Will be free of significant weight changes q month 5% +/- per nursing/grand rounds, weight reports 06/04/2025 Will be able to communicate basic needs on a daily basis through the review date 06/04/2025 The resident will remain fernanda e of complication related to hypertension through review date 06/04/2025 Resident will have adequate vision ability with prescription glasses AEB: no injuries and feeling safe & secure in environment through next review. 06/04/2025 The resident will be free s/s uti 2025 The resident will maintain c urrent level of function in adl's through the review date 06/04/2025 The resident will remain fernanda e from skin breakdown and infection due to incontinence and brief use through the review date . 06/04/2025 The resident will be free of any discomfort or adverse side effects of diuretic therapy through the review date. 06/04/2025 Minimize fall related injuries through n ext review. 06/04/2025 The resident will show decre ased episodes of s/sx of anxiety through the review date 06/04/2025 The resident will be free fr om discomfort or adverse reactions related to antidepressant therapy through the review date 06/04/2025 Resident will self feed lunch and dinner meals thru next review 06/17/2025 Encounters Admission Date Discharge Date Description MRN Visit Count 12/25/2015 00:00 LTPAC [id number]
--- OUTSIDE RECORDS SUMMARY | 2025-04-08 12:47 | XMS_ITS | Continuity of Care Document ---
Author Organization [facility] Address [address] [place] [address] Insurance Providers Payer Plan Claims Address Claims Phone Policy Number Group Number Relation Employer Guarantor Name Guarantor Guarantor Address Guarantor Phone Secure [email or web address] [address] [address], [place], [place] [id number] SelfCHALLIS [id number] [place], [place] [address]Medicaid [place] [employer] [address], [place] [id number] 1945 [address] [place], [place] [id number] GIBSON [address] [place] [address] Problems Condition ICD9 code ICD10 code SNOMED code Start Date End Date S tatus Hyperlipidemia, unspecified E78.508ActiveDementia in other diseases classified elsewhere, severe, with psychotic owzglomejkpI28.C211ctiveDysphagia, oropharyngeal phase R13.1208ActiveMild protein-calorie uyuwjucabgpeB10.1111Active Major depressive disorder, recurrent, in partial hbzbdoanlE08.41023Active Hallucinations, yabswhlmmqyF35.308ActiveEssential (primary) hypertension I1008ActiveAnxiety disorder, qpmwzapdiulK36.908ActiveInsomnia, gtppmclwtqhW34.00012/25/2015ActiveOther peripheral vertigo, hmzdhwfqfW27.393 12/25/2015ActiveChronic angle-closure glaucoma, unspecified eye, stage hzqmatgsujnR47.214491ActiveLow back pain, sjeltwgatjiV25.5005 ActivePersonal history of COVID-19Z86.1603ActiveMuscle weakness (generalized)M62.81024ActiveCognitive communication mltevjbD44.841 02/07/2024ctiveLimitation of activities due to narubbejqaY96.614Active Other feeding iiyhfaotuvdgN16.391ctiveSchizophrenia, gonxphxgypbD78.9 01/15/2024ctiveUrinary tract infection, site not lnoonufdxR53.5Active Encounter for fxjwwldsbingO9733/26/2025Active Results Test Result Date/Time Value / Unit Interp. Refere nce Range COVID-19 Test Viral Antigen null flavor [null] 07/02/2024 07:30 AM See note NEG COVID-19 Test Viral AntigenCOVID-19 Test Antibody IgGnull flavor [null] 05/18/2024 04:35 PMSee noteNEGCOVID-19 Test Antibody IgGCOVID-19 Test Viral Antigennull flavor [null]05/16/2024 12:19 PMSee noteNEGCOVID-19 Test Viral AntigenCOVID-19 Test Viral Antigennull flavor [null]05/14/2024 05:00 PMSee note NEGCOVID-19 Test Viral AntigenCOVID-19 Test Viral Antigennull flavor [null] 05/01/2024 05:00 PMSee noteNEGCOVID-19 Test Viral AntigenCOVID-19 Test Viral Antigennull flavor [null]04/28/2024 10:03 AMSee noteNEGCOVID-19 Test Viral AntigenCOVID-19 Test Viral PCRnull flavor [null]02/21/2024 04:00 PMSee noteNEG COVID-19 Test Viral PCRCOVID-19 Test Viral Antigennull flavor [null]02/19/2024 04:00 PMSee noteNEGCOVID-19 Test Viral Antigen Allergies, adverse reactions, alerts Substance Reaction Date Status Type Penicillins 12/25/2015Non Drug Immunizations Vaccine Route Date Status COVID-19 Vaccine Unassigned Route of Administration Completed COVID-19 Vaccine Unassigned Route of Administration Completed COVID-19 Vaccine Unassigned Route of Administration Completed COVID-19 Vaccine Unassigned Route of Administration Completed COVID-19 Vaccine Unassigned Route of Administration Completed COVID-19 Vaccine Unassigned Route of Administration Completed COVID-19 Vaccine Unassigned Route of Administration Completed COVID-19 Vaccine Unassigned Route of Administration Completed COVID-19 Vaccine Unassigned Route of Administration Completed Influenza Vaccine Unassigned Route of Administration 1 Completed Pneumococcal Vaccine Unassigned Route of Administratio n 04/18/2023 Completed Pneumococcal Vaccine Unassigned Route of Administratio n 07/22/2020 Completed Pneumococcal Vaccine Unassigned Route of Administratio n 09/11/2015 Completed RSV Vaccine Unassigned Route of Administration 2022 Completed COVID-19 Vaccine Unassigned Route of Administration Completed Influenza Vaccine Unassigned Route of Administration 1 Completed COVID-19 Vaccine Unassigned Route of Administration Completed Medications Medication Instructions Route Dosage Frequency Start Date Stop Da te Indications Status acetaminophen 500 mg tablet (acetaminophen) 2 tablets, ORAL, Three times a day, Give 1000 mg by mouth three times a day for pain ORAL 1.0 8.0 h 06/13/2023 ActiveAnti-Diarrheal (loperamide) (loperamide) 2 mg tablet (Anti-Diarrheal (loperamide) (loperamide))1 tablet, oral, subsequently after initial dose of 2 tablets, Give 2 tablet by mouth as needed for Diarrhea GIVE 2 TABLETS AFTER FIRST LOOSE STOOL AND Give 1 tablet by mouth as needoral1.ctive Artificial Tears (polyvin alc) (polyvinyl alcohol) 1.4 % drops (Artificial Tears (polyvin alc) (polyvinyl alcohol))1 drop, IN BOTH EYES, Every day as needed, Instill 1 drop in both eyes as needed for each eye1.01.0 d01Active atorvastatin 20 mg tablet (atorvastatin)1 tablet, ORAL, At Bedtime, Give 1 tablet orally at bedtime for hyperlipidemiaORAL1.ctiveBiofreeze (menthol) (menthol) 4 % gel (Biofreeze (menthol) (menthol))1 application, topical, Three Times A Day - PRN, apply to affected areas topically as needed for paintopical1.08.0 h005/28/2023ctiveCal-Gest Antacid (calcium carbonate) 200 mg calcium (500 mg) tablet,chewable (Mk-Gest Antacid (calcium carbonate))2 tablets, ORAL, Every 4 hours as needed, GIVE 2 TABS BY MOUTH EVERY 4 HOURS NEEDED FOR INDIGESTIONORAL1.04.0 h005/12/2016Activeclonazepam 0.5 mg tablet (clonazepam)1 tablet, ORAL, At BedtimeORAL1.Major depressive disorder, recurrent, in partial remissionActiveclonazepam 0.5 mg tablet (clonazepam)0.25, oral, Once A Day, give half tab to= 0.04wvgadw8.01.0 d 04/15/2024nxiety disorder, unspecifiedActivefamotidine 20 mg tablet (famotidine)1 tablet, ORAL, Every day, Give 1 tablet by mouth one time a day for GI upsetORAL1.01.0 d012/21/2021ctiveloratadine 10 mg tablet (loratadine)1 tablet, ORAL, Every day, Give 1 tablet by mouth one time a day for allergiesORAL 1.01.0 d006/03/2021ctivemirtazapine 15 mg tablet (mirtazapine)1 tablet, oral, Once A Day, at bedtime for appetiteoral1.01.0 d006/10/2023ctivespironolactone 25 mg tablet (spironolactone)1 tablet, ORAL, Every day, Give 1 tablet by mouth one time a day for pitting BLE edemaORAL1.01.0 d009/23/2021ctivetriamcinolone acetonide 0.1 % cream (triamcinolone acetonide)1 application, TOPICAL, Every 12 Hours - PRN, Apply to affected area topically every 12 hours as needed for itchingTOPICAL1.012.0 h005/28/2023ctiveclonazepam 0.25 mg tablet,disintegrating (clonazepam)0.5 tablet, oral, Once A Morningoral1.412/09/2024Major depressive disorder, recurrent, in partial remissionActiveacetaminophen 500 mg tablet (acetaminophen)2 tablets, oral, Once A Day - PRN, feveroral1.01.0 d 4ActiveTussin DM Cough and Chest (dextromethorphan-guaifenesin) 10-100 mg/5 mL syrup (Tussin DM Cough and Chest (dextromethorphan-guaifenesin))20ml, oral, Every 4 Hours - PRN, cough and congestionoral1.04.0 412/ ActiveTussin DM (dextromethorphan-guaifenesin) 5-50 mg/5 mL liquid (Tussin DM (dextromethorphan-guaifenesin))20ml, oral, Every 4 Hours - PRN, cough and congestionoral1.04.0 4ActiveTriad Wound Dressing (wound dressings) - paste (Triad Wound Dressing (wound dressings))1 application, topical, Once A Day, cleanse abrasion to left inner upper thigh with soap and water.Dry thoroughly. Apply triad paste, cover with foam. change dailytopical1.01.0 d 502/5ActiveTriad Wound Dressing (wound dressings) - paste (Triad Wound Dressing (wound dressings))1 application, topical, Once A Day on Mon, Wed, Fri, cleanse MASD right inner buttock. apply triad paste, cover with foam dressing, change MWFtopical1.01.0 d05Activeceftriaxone 2 gram recon soln (ceftriaxone)2 gram, intravenous, Once - One Timeintravenous1. 5Activecephalexin 500 mg capsule (cephalexin)1 capsule, oral, Every 8 Hoursoral1.08.0 h0505Activecranberry 450 mg tablet (cranberry) one tablet, oral, Once A Dayoral1.01.0 d007/04/2024Urinary tract infection, site not specifiedActiveSpikevax 6126-3185(12y up)(PF) (covid vac 24- 25(12up)(mod)(pf)) 50 mcg/0.5 mL syringe (Spikevax 0705-3193(12y up)(PF) (covid vac 24-25(12up)(mod)(pf)))0.5ml, intramuscular, Once - One Timeintramuscular1.0 505Activeatorvastatin 20 mg tablet (atorvastatin)1 tablet, ORAL, At Bedtime, Give 1 tablet orally at bedtime for hyperlipidemiaORAL1.0 5Activeclonazepam 0.5 mg tablet (clonazepam)1 tablet, ORAL, At Bedtime ORAL1.Major depressive disorder, recurrent, in partial remission Activenystatin 100,000 unit/gram powder (nystatin)one application, topical, Three Times A Daytopical1.08.0 h05ActiveFluzone High-Dose 2024- (PF) (flu vacc fi2121-88(65yr up)-pf) 180 mcg/0.5 mL syringe (Fluzone High-Dose (PF) (flu vacc to0723-86(65yr up)-pf))0.5ml, intramuscular, Once - One Time intramuscular1.010/242650/5ActiveMnexspike 4076-2094 (PF) (covid vac 25-26(12up)(mod)(pf)) 10 mcg/0.2 mL syringe (Mnexspike 6937-1713 (PF) (covid vac 25-26(12up)(mod)(pf)))0.2ml, intramuscular, Once - One Timeintramuscular1.0 03/02//5ActiveEnemeez (docusate sodium) 283 mg/5 mL enema (Enemeez (docusate sodium))1 enema, rectal, Once A Day - PRN, Step 3: If no BM by morning of day 4, administer 1 Enemeez MicroEnema in the morning. Indication for use: ConstipationStep 4: If no BM within 1 hour of administering Enemeez, contact provider.rectal1.01.0 d1/013952/5ActiveMiralax (polyethylene glycol 3350) 17 gram/dose powder (Miralax (polyethylene glycol 3350))17gm (1 capful), oral, Once A Day - PRN, Step 1: If no BM by Day 2, Mix 17gm (1 capful) in 4-8oz beverage of choice in the morning. Indication for use: Constipationoral1.01.0 d 510/5ActiveEnemeez (docusate sodium) 283 mg/5 mL enema (Enemeez (docusate sodium))1 enema, rectal, Once A Day - PRN, Step 3: If no BM by morning of day 4, administer 1 Enemeez MicroEnema in the morning. Indication for use: ConstipationStep 4: If no BM within 1 hour of administering Enemeez, contact provider.rectal1.01.0 d15ActiveMiralax (polyethylene glycol 3350) 17 gram/dose powder (Miralax (polyethylene glycol 3350))17gm (1 capful), oral, Once A Day - PRN, Step 1: If no BM by Day 2, Mix 17gm (1 capful) in 4-8oz beverage of choice in the morning. Indication for use: Constipationoral1.01.0 d105/19/2024 Active Vital Signs Date Vital Result Comment 04/14/2024 02:47 PM Body Weight (40687-1) 161.5 [lb_av ] Body Mass Index (62649-5)29.54 kg/m204/07/2024 09:12 PMTemperature (8310-5)97.8 [degF]Oxygen Saturation (91253-0)98 %Respiratory Rate (9279-1)16 /minHeart Rate (8867-4)78 /minBlood Pressure Systolic (8480-6)144 mm[Hg]Blood Pressure Diastolic (8462-4)76 mm[Hg]04/07/2024 12:22 AMTemperature (8310-5)98.1 [degF] 04/06/2024 12:33 AMTemperature (8310-5)98.2 [degF]03/07/2024 11:30 PMTemperature (8310-5)97.9 [degF]Oxygen Saturation (40046-5)96 %Respiratory Rate (9279-1)16 /minHeart Rate (8867-4)84 /minBlood Pressure Systolic (8480-6)128 mm[Hg]Blood Pressure Diastolic (8462-4)60 mm[Hg]03/07/2024 10:07 AMBody Weight (12022-5) 159.5 [lb_av]Body Mass Index (48725-7)29.17 kg/m202/13/2024 12:33 AMTemperature (8310-5)98.2 [degF]02/12/2024 08:48 PMTemperature (8310-5)98.2 [degF]02/12/2024 10:18 AMTemperature (8310-5)98.4 [degF]02/12/2024 12:09 AMTemperature (8310-5) 97.8 [degF]02/11/2024 05:22 PMTemperature (8310-5)98.2 [degF]02/11/2024 01:33 PM Temperature (8310-5)98.4 [degF]02/06/2024 10:31 PMOxygen Saturation (56440-1)98 %Respiratory Rate (9279-1)14 /minHeart Rate (8867-4)63 /minBlood Pressure Systolic (8480-6)134 mm[Hg]Blood Pressure Diastolic (8462-4)54 mm[Hg]02/05/2024 10:48 PMBody Weight (49091-1)164.5 [lb_av]Body Mass Index (07066-6)30.08 kg/m2 01/06/2024 12:40 AMOxygen Saturation (44667-7)98 %Respiratory Rate (9279-1)16 /minHeart Rate (8867-4)79 /minBlood Pressure Systolic (8480-6)134 mm[Hg]Blood Pressure Diastolic (8462-4)84 mm[Hg]12/06/2023 10:29 PMOxygen Saturation (81592-8)98 %Respiratory Rate (9279-1)14 /minHeart Rate (8867-4)96 /minBlood Pressure Systolic (8480-6)143 mm[Hg]Blood Pressure Diastolic (8462-4)85 mm[Hg] 11/10/2023 04:18 PMOxygen Saturation (06767-7)98 %Heart Rate (8867-4)84 /min Blood Pressure Systolic (8480-6)149 mm[Hg]Blood Pressure Diastolic (8462-4)84 mm[Hg]09/28/2023 11:22 AMOxygen Saturation (69216-9)97 %Respiratory Rate (9279-1)18 /minHeart Rate (8867-4)84 /minBlood Pressure Systolic (8480-6)119 mm[Hg]Blood Pressure Diastolic (8462-4)68 mm[Hg]09/06/2023 11:02 AMRespiratory Rate (9279-1)18 /minHeart Rate (8867-4)80 /minBlood Pressure Systolic (8480-6) 155 mm[Hg]Blood Pressure Diastolic (8462-4)85 mm[Hg]07/31/2023 02:50 PMOxygen Saturation (34811-3)96 %Respiratory Rate (9279-1)18 /minHeart Rate (8867-4)84 /minBlood Pressure Systolic (8480-6)126 mm[Hg]Blood Pressure Diastolic (8462-4) 66 mm[Hg]07/09/2023 02:05 PMOxygen Saturation (17696-7)97 %Respiratory Rate (9279-1)16 /minHeart Rate (8867-4)86 /minBlood Pressure Systolic (8480-6)125 mm[Hg]Blood Pressure Diastolic (8462-4)69 mm[Hg]12/25/2015 12:00 AMBody Height (8302-2)62 [in_us]04/28/2024 04:07 PMTemperature (8310-5)99.3 [degF]04/28/2024 05:39 PMTemperature (8310-5)98.7 [degF]05/07/2024 05:45 PMTemperature (8310-5)98 [degF]Oxygen Saturation (70046-3)100 %Respiratory Rate (9279-1)18 /minHeart Rate (8867-4)77 /minBlood Pressure Systolic (8480-6)143 mm[Hg]Blood Pressure Diastolic (8462-4)75 mm[Hg]05/09/2024 01:00 AMBody Weight (28633-6)200.5 [lb_av] Body Mass Index (28576-4)36.67 kg/m205/16/2024 09:44 AMBody Weight (46906-8)154 [lb_av]Body Mass Index (42279-8)28.16 kg/m201/ 12:30 PMTemperature (8310-5)98.2 [degF]06/08/2024 04:48 PMTemperature (8310-5)98.1 [degF]Oxygen Saturation (41913-7)97 %Respiratory Rate (9279-1)16 /minHeart Rate (8867-4)83 /minBlood Pressure Systolic (8480-6)125 mm[Hg]Blood Pressure Diastolic (8462-4) 72 mm[Hg]06/12/2024 01:17 PMBody Weight (31890-1)145 [lb_av]Body Mass Index (42721-0)26.52 kg/m207/01/2024 11:25 AMTemperature (8310-5)98.7 [degF]Oxygen Saturation (51773-3)96 %Respiratory Rate (9279-1)16 /minHeart Rate (8867-4)87 /minBlood Pressure Systolic (8480-6)130 mm[Hg]Blood Pressure Diastolic (8462-4) 78 mm[Hg]07/02/2024 02:32 PMTemperature (8310-5)99.3 [degF]Oxygen Saturation (78052-1)85 %Respiratory Rate (9279-1)18 /minHeart Rate (8867-4)131 /minBlood Pressure Systolic (8480-6)139 mm[Hg]Blood Pressure Diastolic (8462-4)82 mm[Hg] 07/10/2024 11:52 AMBody Weight (76581-2)142 [lb_av]Body Mass Index (23782-2) 25.97 kg/m207/12/2024 03:37 AMTemperature (8310-5)97.5 [degF]Oxygen Saturation (76350-0)97 %Respiratory Rate (9279-1)18 /minHeart Rate (8867-4)65 /minBlood Pressure Systolic (8480-6)141 mm[Hg]Blood Pressure Diastolic (8462-4)85 mm[Hg] 08/04/2024 09:05 AMTemperature (8310-5)98.2 [degF]Oxygen Saturation (33234-2)96 %Respiratory Rate (9279-1)18 /minHeart Rate (8867-4)76 /minBlood Pressure Systolic (8480-6)126 mm[Hg]Blood Pressure Diastolic (8462-4)82 mm[Hg]08/09/2024 08:54 AMBody Weight (58591-8)157.8 [lb_av]Body Mass Index (72882-2)28.86 kg/m2 12/11/2024 02:46 PMBody Weight (94423-7)159.5 [lb_av]Body Mass Index (62294-4) 29.17 kg/m211/06/2024 02:32 PMBody Weight (61444-8)161.5 [lb_av]Body Mass Index (70596-7)29.54 kg/m212/07/2024 05:54 PMTemperature (8310-5)98 [degF]Oxygen Saturation (83779-5)94 %Respiratory Rate (9279-1)16 /minHeart Rate (8867-4)89 /minBlood Pressure Systolic (8480-6)130 mm[Hg]Blood Pressure Diastolic (8462-4) 80 mm[Hg]01/12/2025 08:49 AMBody Weight (61264-8)162 [lb_av]Body Mass Index (11830-2)29.63 kg/m209/09/2024 01:42 AMTemperature (8310-5)97.6 [degF]Oxygen Saturation (38069-0)97 %Respiratory Rate (9279-1)16 /minHeart Rate (8867-4)72 /minBlood Pressure Systolic (8480-6)129 mm[Hg]Blood Pressure Diastolic (8462-4) 65 mm[Hg]01/13/2025 12:20 PMTemperature (8310-5)97.6 [degF]Oxygen Saturation (13777-4)95 %Respiratory Rate (9279-1)12 /minHeart Rate (8867-4)65 /minBlood Pressure Systolic (8480-6)129 mm[Hg]Blood Pressure Diastolic (8462-4)65 mm[Hg] 02/03/2025 11:34 PMBody Weight (67659-9)160.9 [lb_av]Body Mass Index (86379-6) 29.43 kg/m202/04/2025 01:27 PMTemperature (8310-5)98 [degF]02/04/2025 10:29 PM Temperature (8310-5)98.2 [degF]02/05/2025 01:39 AMTemperature (8310-5)98 [degF] 02/05/2025 11:41 AMTemperature (8310-5)98.1 [degF]02/05/2025 11:35 AMBody Weight (58529-0)162 [lb_av]Body Mass Index (13598-8)29.63 kg/m202/05/2025 05:11 PM Temperature (8310-5)97.9 [degF]02/06/2025 12:57 AMTemperature (8310-5)98 [degF] 02/06/2025 09:29 AMTemperature (8310-5)97.7 [degF]02/06/2025 04:28 PMTemperature (8310-5)97.6 [degF]02/06/2025 11:41 PMTemperature (8310-5)98.1 [degF]02/07/2025 08:47 AMTemperature (8310-5)97.9 [degF]02/08/2025 03:13 AMTemperature (8310-5) 97 [degF]03/02/2025 01:53 PMTemperature (8310-5)97.6 [degF]03/07/2025 09:46 PM Body Weight (53122-6)160.6 [lb_av]Body Mass Index (50056-2)29.37 kg/m204/07/2025 07:17 AMTemperature (8310-5)98.4 [degF]Oxygen Saturation (14394-2)94 % Respiratory Rate (9279-1)16 /minHeart Rate (8867-4)76 /min Social History No smoking Hx information available Encounters Type CPT Code Date Location Provider Indication s encounter report 12/25/2015 12:00 Gregory Goldberg MD01 Advance Directives Directive Description Verification Date Supporting Document(s) Other Directive
--- OUTSIDE RECORDS SUMMARY | 2025-04-08 12:52 | XMS_ITS | CCD ---
Author Organization [facility] Care Team Providers Care Personal Lines Account Executive Name Role Phone DR ESE PERALES Primary Care Unavailable DIAZ, DR ESE Garza Admitting Unavailable DIAZ, DR ESE Garza Attending Unavailable DIAZ, DR ESE Garza Consulting Unavailable DIAZ, DR ESE Garza Primary Care Unavailable LOLA RAMIRES Admitting Unavailable IKE, LOLA Attending Unavailable LOLA RAMIRES Consulting Unavailable DIAZ, DR ESE Garza Primary Care Unavailable DIAZ, DR ESE Garza Admitting Unavailable DIAZ, DR ESE Garza Attending Unavailable DIAZ, DR ESE Garza Consulting Unavailable Ese Perales Unavailable Ese Perales MD Primary Care Provider [phone] Lola Blanc PA-C Attending Provider Ese Perales Primary Care Unavailable Lola Blanc Attending Unavailable Lola Blanc Admitting Unavailable Allergies Allergy ClassificationReported Allergen(s)Allergy TypeDate of OnsetReaction(s) Facility (1 source)PenicillinsDrug allergy (disorder)86-62-7050[facility] (1 source)PenicillinsDrug allergy (disorder)31-09-5852ImewreqfoMadison Health Repository Medications Current Medications MedicationDrug Class(es)DatesSig (Normalized)Sig (Original)[facility] Aspirin 81 MG (8 sources)take 1 tablet by mouth once dailyclonazePAM 0.5 mg oral tablet (15 sources)BenzodiazepineStart: 11-01-2023 End: 05-36-8111wuah 0.5 tablet by mouth once daily in the morning, then take 1 tablet by mouth once daily at bedtimeClonazepam 0.5 mg tablet Active 0 PO .COMPLEX 60 May 29, 2024 8:23am 1/2 po qam and 1 po qhs orally as written OK For the IR tablet, not the ODT.Start: 72-08-0960kmazmrhUSI 0.5 MG 0.25mg po qam and 0.5mg po qhs Orally BID for 30 days May, ActiveStart: 58-73-2463uxkikumQYP 0.5 MG 0.25mg po qam and 0.5mg po qhs Orally BID Mar, ActiveStart: 58-59-0293txsufznOWC 0.5 MG 0.25mg po qam and 0.5mg po qhs Orally BID Feb, ActiveStart: 51-00-7568xkqcgdyMQJ 0.5 MG 0.25mg po qam and 0.5mg po qhs Orally BID for 30 days September, Activelosartan potassium 50 mg oral tablet (8 sources)Angiotensin 2 Receptor BlockerStart: 29-75-5134fbsh 1 tablet by mouth every twenty-four hoursLosartan Potassium 50 MG 1 tablet Orally Once a day Nov, Activesimvastatin 40 mg oral tablet (8 sources)HMG-CoA Reductase InhibitorStart: 11-09-2010 Problems Problem ClassificationProblemDateDocumented DateEpisodic/ChronicAnxiety disorders (10 sources)Generalized anxiety disorder; Translations: [Generalized anxiety disorder]ChronicDisorders of lipid metabolism (12 sources)Hyperlipidemia, unspecified; Translations: [Pure hypercholesterolemia]Onset: 50-95-4736BorsqipNyvqwahl; convulsions (8 sources)Seizure disorder; Translations: [Seizure disorder NOS]Episodic Esophageal disorders (8 sources)Gastroesophageal reflux disease; Translations: [GERD [Gastroesophageal reflux disease]]ChronicEssential hypertension (20 sources)Essential (primary) hypertension; Translations: [Hypertensive disorder]Onset: 49-91-5911ZgzivokVtprkws and fatigue (4 sources)Fatigue; Translations: [Other fatigue]EpisodicMood disorders (15 sources)Recurrent major depression in partial remission; Translations: [Major depressive disorder, recurrent, in partial remission]ChronicNutritional deficiencies (1 source)Mild protein-calorie malnutrition; Translations: [MILD PROTEIN-CALORIE MALNUTRITION]Onset: 16-98-7796BcrqgpuKrgipsajtvwujp (8 sources)Osteoarthritis; Translations: [Osteoarthrosis, unspecified whether generalized or localized, site unspecified]ChronicOther skin disorders (8 sources)Inflammatory dermatosis; Translations: [DERMATITIS NEC]Episodic Residual codes; unclassified (4 sources)Edema, unspecified; Translations: [EDEMA UNSPECIFIED]Onset: 14-55-6126TvphvjyqUtutwpsyeaoyz and other psychotic disorders (9 sources)Chronic schizoaffective schizophrenia; Translations: [Schizoaffective disorder, unspecified]ChronicSpondylosis; intervertebral disc disorders; other back problems (16 sources)Degeneration of lumbar intervertebral disc; Translations: [DDD- Lumbar spine]ChronicSpondylosis; intervertebral disc disorders; other back problems (8 sources)Backache; Translations: [Back Pain]EpisodicUnclassified (1 source)COUGH, UNSPECIFIED; Translations: [COUGH, UNSPECIFIED]Onset: 12-14-2021 Results Test NameValueInterpretationReference RangeFacilityBasophils/100 WBC Manual cnt (Bld)on 84-02-2360Iysxsyhvd/100 WBC (Bld)Basophils/100 leukocytes in Blood by Manual countLow0.2-2.0[facility] HealthEosinophils/100 WBC Manual cnt (Bld)on 03-96-0641Nabvesjbyly/100 WBC (Bld)Eosinophils/100 leukocytes in Blood by Manual count0.9-7.0[facility] HealthLaboratory - Chemistry and Chemistry - challengeon 63-14-4879Kjlnvsd [Moles/Vol]1.8 mmol/L 0.4-2.0[facility] HealthLabsouth dos palostory - Hematology and Cell counts on 79-44-7934Bepukuwkmil/100 WBC (Bld)15.0 %Low20.5-60.0[facility] HealthMonocytes/100 WBC (Bld)8.0 %1.7-12.0[facility] HealthLaboratory - Microbiology and Antimicrobial susceptibilityon 07-02-2024 SARS-CoV-2 (COVID-19) RNA ALIRIO+probe Ql (Unsp spec)NegativeNEGATIVEMadison HealthComment on above:This test has not been FDA cleared or approved, but has beenauthorized by the FDA under an Emergency Use Authorization(EUA) for use by authorized laboratories certified underIA that meet the requirements to perform moderate or highcomplexity testing. This test has been authorized only forthe detection of proteins from SARS-CoV-2, not for any otherviruses or pathogens. The emergency use of this test isauthorized for the duration of the declaration thatcircumstances exist justifying the authoriz ation ofemergency use of in vitro diagnostic tests for detectionand/or diagnosis of Covid-19 under section 564(b)(1) of theAct, 21 U.S.C. 360bbb-3(b)(1), unless the declaration isterminated or authorization is revoked sooner. Metamyelocytes/100 WBC Manual cnt (Bld)on 27-89-1768Wppzhuyhassrpv/100 WBC (Bld) Metamyelocytes/100 leukocytes in Blood by Manual countMadison HealthNo Panel Informationon 32-97-1212Wysqepwj Basophils (Manual)0.00 10 3/uL 0.00-0.10Madison HealthEosinophils # (Manual)0.07 10 3/uL 0.00-0.70Madison HealthLymphocytes # (Manual)1.17 10 3/uLLow 1.20-3.80[facility] HealthMetamyelocytes # (Manual)0.07Mad[facility] HealthMonocytes # (Manual)0.62 10 3/uL0.30-0.80[facility] Systemegmented Neutrophils # (Manual)5.85 10 3/uL1.4-6.5 [facility] HealthTroponin I High Sensitivity6.5 pg/mL4.0-51.3 [facility] HealthComment on above:CUT-OFF POINTS HAVE BEEN ESTABLISHED BASED ON THE FOURTHUNIVERSAL DEFINITION OF MYOCARDIAL INFARCTION. THE UPPERREFERENCE LIMIT (URL) OF TROPONIN, DEFINED THE 99THPERCENTILE OF cTnI DISTRIBUTION IN A REFERENCE POPULATION,HAS BEEN CONFIRMED THE DECISION THRESHOLD FOR MIDIAGNOSIS.99TH PERCENTILE = 51.4 PG/MLNOTE: HIGH-SENSITIVITY TROPONIN ASSAY IS NOT INTENDED TO BEUSED IN ISOLATION BUT SHOULD BE INTERPRETED IN CONJUNCTIONWITH OTHER DIAGNOSTIC AND CLINICAL INFORMATION.Venous Blood Partial Pressure CO231.4 mm[Hg]Low40.0-52.0[facility] Venous Blood pH7.4217.330-7.430Mad[facility] HealthBedside Influenza Type A AntigenNegativeMadison HealthComment on above:Negative for Flu A protein antigen. Infection due to Flu Acannot be ruled out. Flu A antigen in thesample may bebelow the detection limit of the test. Bedside Influenza Type B AntigenNegativeMadison HealthComment on above:Negative for Flu B protein antigen. Infection due to Flu Bcannot be ruled out. Flu B antigen in thesample may bebelow the detection limit of the test.RSV RNA Qual (PCR[place] [place]Not detectedNOT [facility] Hospitalegmented neutrophils/100 WBC Manual cnt (Bld)on 41-03-3761Zfkdfjlpx neutrophils/100 WBC (Bld)Manual blood segmented neutrophils/100 leukocytes 43.0-75.0Mad[facility] HealthUrine Cultureon 60-14-3446Kztzwiab identified Cx Nom (U)ORGANISM: Escherichia coli (O:ESCCOL) [place] Count >100,000 Aerobic DRAKE Charge (NMIC56) SUSCEPTIBILITY ORGANISM: O:ESCCOL ANTIBIOTIC INTERPRETATION DRAKE Amikacin S <16 Amoxacillin/K Clavulanate S <8 Ampicillin S <8 Ampicillin/Sulbactam S <4 Aztreonam S <4 Cefazolin S <2 Cefepime S <2 Ceftazidime S <1 Ceftazidime/Avibactam S <4 Ceftolozane/Tazobactam S <2 Ceftriaxone S <1 Cefuroxime S <4 Ciprofloxacin S <0.25 Ertapenem S <0.5 Gentamicin S <2 Levofloxacin S <0.5 Meropenem S <1 Meropenem/Vaborbactam S <2 Nitrofurantoin S <32 Piperacillin/Tazobactam S <8 Tetracycline S <4 Tigecycline S <2 Tobramycin S <2 Trimethoprim/Sulfamethoxazole S <0.5 S = SUSCEPTIBLE I = INTERMEDIATE R = RESISTANT BLANK = DATA NOT AVAILABLE, OR DRUG NOT ADVISABLE OR TESTED R* = RESISTANCE DUE TO EXTENDED SPECTRUM BETA-LACTAMASES ESBL = EXTENDED SPECTRUM BETA-LACTAMASE TFG = THYMIDINE-DEPENDENT STRAIN JOYCELYN = BETA-LACTAMASE POSITIVE IB = INDUCIBLE BETA-LACTAMASE. APPEARS IN PLACE OF 'S' WITH SPECIES KNOWN TO POSSESS INDUCIBLE BETA-LACTAMASES. POTENTIALLY THEY MAY BECOME RESISTANT TO ALL B-LACTAM DRUGS. PERFORMED BY: [facility] [address] [id number] PATHOLOGIST PHARMACY DIRECTOR YANIRA LOUIS M.D.NormalThe [facility] Physician GroupComment on above: Performed By: #### CUU #### [facility] [address] [id number] USACBC AUTO DIFFon 83-96-6965GTJZ #0.0 103/ulNormal0.0-0.1The [facility] Medical CenterComment on above:Performed By: #### CBC #### [facility] [address] [address] [address] Donovan CurtisBasophils/100 WBC (Bld)0.6 %Normal0.2-2.0[facility] Comment on above:Performed By: #### CBC #### [facility] [address] [address] [address] Donovan Tuttle #0.3 103/ulNormal0.0-0.7The [facility] Medical CenterComment on above: Performed By: #### CBC #### [facility] [address] [address] [address] Donovan Villafuerteosinophils/100 WBC (Bld)6.3 %Normal0.9-7.0[facility] Comment on above:Performed By: #### CBC #### [facility] [address] [address] [address] Donovan Villafuerterythrocyte distribution width (RBC) [Ratio]13.7 %Olvjpj53.0-15.0 [facility] CenterComment on above:Performed By: #### CBC #### [facility] [address] [place] [address] Dr. Donovan CurtisHematocrit (Bld) [Volume fraction]41.0 %Yulhhc78.0-48.0The [facility] Medical CenterComment on above:Performed By: #### CBC #### [facility] [address] [place] [address] Dr. Donovan CurtisHemoglobin (Bld) [Mass/Vol]13.1 g/jMFhqiev79.0-16.0The [facility] CenterComment on above:Performed By: #### CBC #### [facility] [address] [place] [address] Dr. Donovan Ham #0.01 10e3/ulNormal0.00-0.03The [facility] Medical CenterComment on above:Performed By: #### CBC #### [facility] [address] [place] [address] Dr. Donovan Ham %0.2 %Normal0.0-0.5The [facility] CenterComment on above: Performed By: #### CBC #### [facility] [address] [place] [address] Dr. Donovan Torres #1.3 103/ulNormal1.2-3.8The [facility] CenterComment on above:Performed By: #### CBC #### [facility] [address] [place] [address] Dr. Donovan Smythhocytes/100 WBC (Bld)25.6 %Xykica29.5-60.0The [facility] Medical CenterComment on above:Performed By: #### CBC #### [facility] [address] [place] [address] Dr. Donovan NorrisUAL DIFF REQNONormalThe [facility] Medical CenterComment on above: Performed By: #### CBC #### [facility] [address] [place] [address] Dr. Donovan Patel (RBC) [Entitic mass]30.9 cgQehjcq80.7-34.0The [facility] Medical CenterComment on above:Performed By: #### CBC #### [facility] [address] [place] [address] Dr. Donovan Diana (RBC) [Mass/Vol]32.0 g/zQDscxaw47.9-35.2The [facility] CenterComment on above:Performed By: #### CBC #### [facility] [address] [place] [address] Dr. Donovan Maurer (RBC) [Entitic vol]96.7 iAVuonpe99.0-99.0The [facility] CenterComment on above:Performed By: #### CBC #### [facility] [address] [place] [address] Dr. Donovan Sheppard #0.6 103/ulNormal0.3-0.8The [facility] CenterComment on above:Performed By: #### CBC #### [facility] [address] [place] [address] Dr. Donovan Marocytes/100 WBC (Bld)11.2 %Normal1.7-12.0The [facility] Comment on above:Performed By: #### CBC #### [facility] [address] [place] [address] Dr. Donovan Pitt #2.8 103/ulNormal1.4-6.5The [facility] CenterComment on above:Performed By: #### CBC #### [facility] [address] [place] [address] Dr. Donovan Carbajalutrophils/100 WBC (Bld)56.1 %Afxeem54.0-75.0The [facility] CenterComment on above:Performed By: #### CBC #### [facility] [address] [place] [address] Dr. Donovan Dyelet mean volume (Bld) [Entitic vol]11.9 fLNormal9.5-13.5The [facility] CenterComment on above:Performed By: #### CBC #### [facility] [address] [place] [address] Dr. Donovan NaranjoT221 103/iaYeboai103-520Hwp [facility] CenterComment on above: Performed By: #### CBC #### [facility] [address] [place] [address] Dr. Donovan CurtisRBC4.24 106/ulNormal4.20-5.40The [facility] CenterComment on above:Performed By: #### CBC #### [facility] [address] [place] [address] Dr. Donovan CurtisWBC5.1 103/ulNormal4.0-11.0The [facility] CenterComment on above: Performed By: #### CBC #### [facility] [address] [place] [address] Dr. Donovan CurtisPROF CHEM 8 (BAS METB)on 51-43-9652Iidwf gap [Moles/Vol]14.8 mmol/LNormalThe [facility] CenterComment on above:Performed By: #### BMP #### [facility] [address] [place] [address] Dr. Donovan CurtisCalcium [Mass/Vol]10.1 mg/dLNormal8.5-10.1The [facility] Comment on above:Performed By: #### BMP #### [facility] [address] [place] [address] Dr. Donovan CurtisChloride [Moles/Vol]105 mmol/OGbjzoa87-390Xqw [facility] Comment on above:Performed By: #### BMP #### [facility] [address] [place] [address] Dr. Donovan CurtisCO2 [Moles/Vol]26.2 mmol/AWtgzim25.0-32.0[facility] Comment on above:Performed By: #### BMP #### [facility] [address] [place] [address] Dr. Donovan CurtisCreatinine [Mass/Vol]1.05 mg/dLCritically high0.55-1.02The [facility] CenterComment on above:Performed By: #### BMP #### [facility] [address] [place] [address] Dr. Donovan VillafuerteGFR-AF PORTUGUESE>60Normal>=60The [facility] CenterComment on above:Performed By: #### BMP #### [facility] [address] [place] [address] Dr. Yilan ChangEGFR-NON AF IELICNVS08 mL/min/1.47z6Rwpqhpxgmv low>=60The [facility] CenterComment on above:Performed By: #### BMP #### [facility] [address] [place] [address] Dr. Donovan CurtisGlucose [Mass/Vol]89 mg/eWLmnwfo70-854Orj [facility] Comment on above:Performed By: #### BMP #### [facility] [address] [place] [address] Dr. Donovan CurtisPotassium [Moles/Vol]4.0 mmol/LNormal3.5-5.1[facility] Comment on above:Performed By: #### BMP #### [facility] [address] [place] [address] Dr. Donovan Ramosdium [Moles/Vol]142 mmol/AXvvxiw129-574Nyp [facility] Comment on above:Performed By: #### BMP #### [facility] [address] [place] [address] Dr. Donovan CurtisUrea nitrogen [Mass/Vol]18.0 mg/dLNormal7.0-18.0The [facility] CenterComment on above:Performed By: #### BMP #### [facility] [address] [place] [address] Dr. Donovan Alves nitrogen/Creatinine [Mass ratio]17.1 mg/mgNormalThe [facility] CenterComment on above:Performed By: #### BMP #### [facility] [address] [place] [address] Dr. Donovan Yepez AUTO DIFFon 19-29-4016WLKT #0.0 103/ulNormal0.0-0.1The [facility] CenterComment on above:Performed By: #### CBC #### [facility] [address] [place] [address] Dr. Donovan CurtisBasophils/100 WBC (Bld)0.6 %Normal0.2-2.0The [facility] Comment on above:Performed By: #### CBC #### [facility] [address] [place] [address] Dr. Donovan Tuttle #0.3 103/ulNormal0.0-0.7The [facility] CenterComment on above: Performed By: #### CBC #### [facility] [address] [place] [address] Dr. Donovan Villafuerteosinophils/100 WBC (Bld)5.1 %Normal0.9-7.0The [facility] Comment on above:Performed By: #### CBC #### [facility] [address] [place] [address] Dr. Donovan Villafuerterythrocyte distribution width (RBC) [Ratio]13.8 %Chobnu99.0-15.0 The [facility] CenterComment on above:Performed By: #### CBC #### [facility] [address] [place] [address] Dr. Donovan CurtisHematocrit (Bld) [Volume fraction]34.5 %Critically low36.0-48.0 The [facility] CenterComment on above:Performed By: #### CBC #### [facility] [address] [place] [address] Dr. Donovan CurtisHemoglobin (Bld) [Mass/Vol]11.4 g/dLCritically low12.0-16.0The [facility] Centerment on above:Performed By: #### CBC #### [facility] [address] [place] [address] Dr. Donovan Ham #0.01 10e3/ulNormal0.00-0.03The [facility] CenterComment on above:Performed By: #### CBC #### [facility] [address] [place] [address] Dr. Donovan Ham %0.2 %Normal0.0-0.5The [facility] CenterComment on above: Performed By: #### CBC #### [facility] [address] [place] [address] Dr. Donovan Torres #1.5 103/ulNormal1.2-3.8The [facility] CenterComment on above:Performed By: #### CBC #### [facility] [address] [place] [address] Dr. Donovan Rosalesmphocytes/100 WBC (Bld)29.8 %Gsavnf37.5-60.0The [facility] on above:Performed By: #### CBC #### [facility] [address] [place] [address] Dr. Donovan NorrisUAL DIFF REQNONormalThe [facility] CenterComment on above: Performed By: #### CBC #### [facility] [address] [place] [address] Dr. Donovan Diana (RBC) [Entitic mass]31.1 xjAjpgrr41.7-34.0The [facility] CenterComment on above:Performed By: #### CBC #### [facility] [address] [place] [address] Dr. Donovan Diana (RBC) [Mass/Vol]33.0 g/zZHnqflw78.9-35.2The [facility] CenterComment on above:Performed By: #### CBC #### [facility] [address] [place] [address] Dr. Donovan Diana (RBC) [Entitic vol]94.0 rXFsvedl91.0-99.0The [facility] CenterComcorewell health [facility] on above:Performed By: #### CBC #### [facility] [address] [place] [address] Dr. Donovan Sheppard #0.7 103/ulNormal0.3-0.8The [facility] CenterComment on above:Performed By: #### CBC #### [facility] [address] [place] [address] Dr. Donovan Marocytes/100 WBC (Bld)13.6 %Critically high1.7-12.0The [facility] Medical CenterComcorewell health [facility] on above:Performed By: #### CBC #### [facility] [address] [place] [address] Dr. Donovan Pitt #2.5 103/ulNormal1.4-6.5The [facility] CenterComment on above:Performed By: #### CBC #### [facility] [address] [place] [address] Dr. Donovan Carbajalutrophils/100 WBC (Bld)50.7 %Hdvuqk48.0-75.0The [facility] on above:Performed By: #### CBC #### [facility] [address] [address] [address] Donovan Dyelet mean volume (Bld) [Entitic vol]11.3 fLNormal9.5-13.5The [facility] CenterComment on above:Performed By: #### CBC #### [facility] [address] [place] [address] Dr. Donovan CurtisPLT179 103/ayRkzstq428-427Gqz [facility] on above: Performed By: #### CBC #### [facility] [address] [place] [address] Dr. Donovan CurtisRBC3.67 106/ulCritically low4.20-5.40The [facility] CenterComment on above:Performed By: #### CBC #### [facility] [address] [place] [address] Dr. Donovan CurtisWBC4.9 103/ulNormal4.0-11.0The [facility] CenterComment on above: Performed By: #### CBC #### [facility] [address] [place] [address] Dr. Donovan CurtisLIPID PROFILEon 04-30-7282ULWG-HDL RATIO NORMSOhioHealth Dublin Methodist HospitalComment on above:Result Comment: 3.3 - 4.4 LOW RISK 4.4 - 7.1 AVERAGE RISK 7.1 - 11.0 MODERATE RISK >11.0 HIGH RISKPerformed By: #### LIPID, CMP #### [facility] [address] [place] [address] Dr. Donovan CurtisCholesterol [Mass/Vol]105 mg/dLNormal<=200The [facility] Comment on above:Performed By: #### LIPID, CMP #### [facility] [address] [place] [address] Dr. Yilan ChangCholesterol in HDL [Mass/Vol]45 mg/qBXcsyyt33-07EghDelaware County Hospitalment on above:Performed By: #### LIPID, CMP #### [facility] [address] [place] [address] Dr. Donovan CurtisCholesterol in LDL [Mass/Vol]42.2 mg/dLMemorial Health System Marietta Memorial HospitalComment on above:Performed By: #### LIPID, CMP #### [facility] [address] [place] [address] Dr. Donovan Stanley.total/Cholesterol in HDL [Mass ratio]2.3 {ratio} NormalMain Campus Medical CenterComment on above:Performed By: #### LIPID, CMP #### [facility] [address] [place] [address] Dr. Donovan Culp NORMAL> or = 60 mg/dl - LOW CARDIOVASCULAR RISK <40 mg/dl - HIGH CARDIOVASCULAR RISKMemorial Health System Marietta Memorial HospitalComment on above:Performed By: #### LIPID, CMP #### [facility] [address] [place] [address] Dr. Donovan Becrera CALC NORMALSEE BELOWMemorial Health System Marietta Memorial HospitalComment on above:Result Comment: <100 mg/dl OPTIMAL 100 - 129 mg/dl NEAR OR ABOVE OPTIMAL 130 - 159 mg/dl BORDERLINE HIGH 160 - 189 mg/dl HIGH >190 mg/dl VERY HIGH Performed By: #### LIPID, CMP #### [facility] [address] [place] [address] Dr. Donovan CurtisTriglyceride [Mass/Vol]89 mg/dLNormal<=150The [facility] Comment on above:Performed By: #### LIPID, CMP #### [facility] [address] [place] [address] Dr. Donovan CurtisVLDL CALC17.8 mg/dLNoNewark HospitalComment on above: Performed By: #### LIPID, CMP #### [facility] [address] [place] [address] Dr. Donovan CurtisPROJohnathon 14(COMP METB)on 55-00-5194Qbpfdfj [Mass/Vol]3.1 g/dL Critically low3.4-5.0The [facility] CenterComment on above:Performed By: #### LIPID, CMP #### [facility] [address] [place] [address] Dr. Donovan CurtisAlbumin/Globulin [Mass ratio]1.1 {ratio}NormalThe [facility] CenterComment on above:Performed By: #### LIPID, CMP #### [facility] [address] [address] [address] Donovan Coleman [Catalytic activity/Vol]66 U/CHmmxxr70-536Kkt [facility] CenterComment on above:Performed By: #### LIPID, CMP #### [facility] [address] [place] [address] Dr. Donovan Gomez [Catalytic activity/Vol]16 U/MXvicuf71-99Uid [facility] CenterComment on above:Performed By: #### LIPID, CMP #### [facility] [address] [place] [address] Dr. Donovan Solis gap [Moles/Vol]12.5 mmol/LNormalThe [facility] Comment on above:Performed By: #### LIPID, CMP #### [facility] [address] [place] [address] Dr. Donovan Heard [Catalytic activity/Vol]23 U/JVrzdfl12-84Csd [facility] CenterComment on above:Performed By: #### LIPID, CMP #### [facility] [address] [address] [address] Donovan CurtisBilirubin [Mass/Vol]1.0 mg/dLNormal0.2-1.0The [facility] Comment on above:Performed By: #### LIPID, CMP #### [facility] [address] [place] [address] Dr. Donovan CurtisCalcium [Mass/Vol]9.8 mg/dLNormal8.5-10.1The [facility] Comment on above:Performed By: #### LIPID, CMP #### [facility] [address] [place] [address] Dr. Yilan ChangChloride [Moles/Vol]109 mmol/LCritically rxyf53-269Cww [facility] CenterComment on above:Performed By: #### LIPID, CMP #### [facility] [address] [address] [address] Donovan CurtisCO2 [Moles/Vol]26.8 mmol/LDunach31.0-32.0The [facility] Comment on above:Performed By: #### LIPID, CMP #### [facility] [address] [place] [address] Dr. Donovan CurtisCreatinine [Mass/Vol]0.92 mg/dLNormal0.55-1.02The [facility] CenterComment on above:Performed By: #### LIPID, CMP #### [facility] [address] [place] [address] Dr. Donovan VillafuerteGFR-AF PORTUGUESE>60Normal>=60The [facility] CenterComment on above:Performed By: #### LIPID, CMP #### [facility] [address] [place] [address] Dr. Donovan VillafuerteGFR-NON AF YNBTRUPG56 mL/min/1.04y9Pbujyirmnt low>=60The [facility] CenterComment on above:Performed By: #### LIPID, CMP #### [facility] [address] [place] [address] Dr. Donovan CurtisGlobulin (S) [Mass/Vol]2.7 g/dLNormalThe [facility] CenterComment on above:Performed By: #### LIPID, CMP #### [facility] [address] [place] [address] Dr. Donovan CurtisGlucose [Mass/Vol]87 mg/hMKnurkw35-871Ejh [facility] Comment on above:Performed By: #### LIPID, CMP #### [facility] [address] [place] [address] Dr. Donovan CurtisPotassium [Moles/Vol]4.3 mmol/LNormal3.5-5.1The [facility] Comment on above:Performed By: #### LIPID, CMP #### [facility] [address] [place] [address] Dr. Donovan CurtisProtein [Mass/Vol]5.8 g/dLCritically low6.4-8.2The [facility] CenterComment on above:Performed By: #### LIPID, CMP #### [facility] [address] [place] [address] Dr. Donovan Salgadoum [Moles/Vol]144 mmol/AOfmieg252-522Wch [facility] Comment on above:Performed By: #### LIPID, CMP #### [facility] [address] [place] [address] Dr. Donovan Alves nitrogen [Mass/Vol]22.0 mg/dLCritically high7.0-18.0The [facility] CenterComment on above:Performed By: #### LIPID, CMP #### [facility] [address] [place] [address] Dr. Donovan Alves nitrogen/Creatinine [Mass ratio]23.9 mg/mgNormalThe [facility] CenterComment on above:Performed By: #### LIPID, CMP #### [facility] [address] [place] [address] Dr. Donovan Jack 32-16-2673Bfunxtaoucf peptide B (Bld) [Mass/Vol]190.0 pg/mL Normal<=1,800.0The [facility] CenterComment on above:Performed By: #### BNP, BMP #### [facility] [address] [place] [address] Dr. Donovan Yepez AUTO DIFFon 65-75-2327WDUF #0.0 103/ulNormal0.0-0.1The [facility] CenterComment on above:Performed By: #### CBC #### [facility] [address] [place] [address] Dr. Donovan Obandophils/100 WBC (Bld)0.5 %Normal0.2-2.0[facility] Comment on above:Performed By: #### CBC #### [facility] [address] [place] [address] Dr. Donovan Tuttle #0.2 103/ulNormal0.0-0.7The [facility] CenterComment on above: Performed By: #### CBC #### [facility] [address] [place] [address] Dr. Donovan Villafuerteosinophils/100 WBC (Bld)2.9 %Normal0.9-7.0The [facility] on above:Performed By: #### CBC #### [facility] [address] [place] [address] Dr. Donovan Villafuerterythrocyte distribution width (RBC) [Ratio]14.1 %Mysorw12.0-15.0 The [facility] CenterComment on above:Performed By: #### CBC #### [facility] [address] [place] [address] Dr. Donovan CurtisHematocrit (Bld) [Volume fraction]42.0 %Zckwgo09.0-48.0The [facility] CenterComment on above:Performed By: #### CBC #### [facility] [address] [place] [address] Dr. Donovan CurtisHemoglobin (Bld) [Mass/Vol]13.1 g/mSDxhccc04.0-16.0The [facility] CenterComment on above:Performed By: #### CBC #### [facility] [address] [place] [address] Dr. Donovan Ham #0.01 10e3/ulNormal0.00-0.03The [facility] CenterComment on above:Performed By: #### CBC #### [facility] [address] [place] [address] Dr. Donovan Ham %0.2 %Normal0.0-0.5The [facility] CenterComment on above: Performed By: #### CBC #### [facility] [address] [place] [address] Dr. Donovan SmythH #1.2 103/ulNormal1.2-3.8The [facility] CenterComment on above:Performed By: #### CBC #### [facility] [address] [place] [address] Dr. Donovan Rosalesmphocytes/100 WBC (Bld)20.5 %Eeionm83.5-60.0The [facility] CenterComment on above:Performed By: #### CBC #### [facility] [address] [place] [address] Dr. Donovan Vizcarra DIFF REQNONormalThe [facility] CenterComment on above: Performed By: #### CBC #### [facility] [address] [place] [address] Dr. Donovan Diana (RBC) [Entitic mass]29.7 snLdjlcz20.7-34.0The [facility] CenterComment on above:Performed By: #### CBC #### [facility] [address] [place] [address] Dr. Donovan Diana (RBC) [Mass/Vol]31.2 g/zFHxcuhn54.9-35.2The [facility] CenterComment on above:Performed By: #### CBC #### [facility] [address] [place] [address] Dr. Donovan Maurer (RBC) [Entitic vol]95.2 zFHmtsmy11.0-99.0The [facility] CenterComment on above:Performed By: #### CBC #### [facility] [address] [place] [address] Dr. Donovan Sheppard #0.7 103/ulNormal0.3-0.8The [facility] CenterComment on above:Performed By: #### CBC #### [facility] [address] [place] [address] Dr. Donovan Marocytes/100 WBC (Bld)11.7 %Normal1.7-12.0The [facility] Comment on above:Performed By: #### CBC #### [facility] [address] [place] [address] Dr. Donovan Pitt #3.7 103/ulNormal1.4-6.5The [facility] CenterComment on above:Performed By: #### CBC #### [facility] [address] [place] [address] Dr. Yilan ChangNeutrophils/100 WBC (Bld)64.2 %Vydjec59.0-75.0The [facility] CenterComment on above:Performed By: #### CBC #### [facility] [address] [place] [address] Dr. Donovan Martinez mean volume (Bld) [Entitic vol]11.2 fLNormal9.5-13.5The [facility] CenterComment on above:Performed By: #### CBC #### [facility] [address] [place] [address] Dr. Donovan CurtisPLT240 103/orUsncrg922-783Dep [facility] CenterComment on above: Performed By: #### CBC #### [facility] [address] [place] [address] Dr. Donovan CurtisRBC4.41 106/ulNormal4.20-5.40The [facility] CenterComment on above:Performed By: #### CBC #### [facility] [address] [place] [address] Dr. Donovan CurtisWBC5.8 103/ulNormal4.0-11.0The [facility] CenterComment on above: Performed By: #### CBC #### [facility] [address] [place] [address] Dr. Donovan Raymond CHEM 8 (BAS METB)on 54-22-6672Oopdt gap [Moles/Vol]13.7 mmol/LNormalThe [facility] CenterComment on above:Performed By: #### BNP, BMP #### [facility] [address] [place] [address] Dr. Donovan CurtisCalcium [Mass/Vol]10.3 mg/dLCritically high8.5-10.1The [facility] CenterComment on above:Performed By: #### BNP, BMP #### [facility] [address] [place] [address] Dr. Donovan CurtisChloride [Moles/Vol]104 mmol/XJmlsdm75-818Mgt [facility] Comment on above:Performed By: #### BNP, BMP #### [facility] [address] [address] [address] Donovan CurtisCO2 [Moles/Vol]26.6 mmol/UIezmlw64.0-32.0[facility] Comment on above:Performed By: #### BNP, BMP #### [facility] [address] [place] [address] Dr. Donovan CurtisCreatinine [Mass/Vol]1.04 mg/dLCritically high0.55-1.02The [facility] CenterComment on above:Performed By: #### BNP, BMP #### [facility] [address] [place] [address] Dr. Donovan VillafuerteGFR-AF PORTUGUESE>60Normal>=60The [facility] CenterComment on above:Performed By: #### BNP, BMP #### [facility] [address] [place] [address] Dr. Donovan VillafuerteGFR-NON AF FGGTEEVH88 mL/min/1.99n1Tjzfvwzckx low>=60The [facility] CenterComment on above:Performed By: #### BNP, BMP #### [facility] [address] [place] [address] Dr. Donovan CurtisGlucose [Mass/Vol]74 mg/wYBkmgmm45-317YcbMain Campus Medical Center Comment on above:Performed By: #### BNP, BMP #### [facility] [address] [place] [address] Dr. Donovan CurtisPotassium [Moles/Vol]4.3 mmol/LNormal3.5-5.1The [facility] Comment on above:Performed By: #### BNP, BMP #### [facility] [address] [place] [address] Dr. Donovan CurtisSodium [Moles/Vol]140 mmol/YQovnal180-770NaoMain Campus Medical Center Comment on above:Performed By: #### BNP, BMP #### [facility] [address] [place] [address] Dr. Donovan CurtisUrea nitrogen [Mass/Vol]19.0 mg/dLCritically high7.0-18.0The [facility] CenterComment on above:Performed By: #### BNP, BMP #### [facility] [address] [address] [address] Donovan CurtisUrea nitrogen/Creatinine [Mass ratio]18.3 mg/mgNoNewark HospitalComment on above:Performed By: #### BNP, BMP #### [facility] [address] [address] [address] Donovan Curtis Encounters Encounter DateEncounter TypeCare ProviderFacilityStart: 63-02-4475Qwm-patient / Non-visitEse Perales MD Work Phone: [facility] Work Phone: Start: 07-02-2024 End: 08-17-2020saoccsoxbvIvqqtp E Braun MD Work Phone: [facility] Work Phone: Start: 07-02-2024 End: 36-62-2548Bnyiwhib ReferredEse Perales MD Work Phone: [facility]-LAB Path Spec [facility] HospStart: 71-17-6303Btq-patient / Non-visitEse Perales MD Work Phone: [facility] Work Phone: Start: 97-43-9070Szc-patient / Non-visitEse Perales MD Work Phone: [facility] Work Phone: Start: 05-18-2023 End: 09-85-4760iapnmqraalAxevno Braun Other [employer] Other Start: 95-81-7368Ficjnazkh encounterJoannaciana Bae [facility] Centertart: 05-16-2023 End: 50-97-6888qwfikimdjrXvzufv Braun Other [employer] Other Start: 66-67-5105Bbeqsqwom encounterMarcia Kathia [facility] ClinicStart: 05-01-2023 End: 14-42-4306gdoynvwiobZnbetz Perales Other [employer] Other Start: 32-52-3174Zxos nursing facil care/day minor complj 15 minMarcia Jassevue Care CenterStart: 03-14-2023 End: 75-08-7671noqzmvgczvUvidla Perales Other [employer] Other Start: 95-49-1577Eywwaioum encounterMarcia Kathia [facility] Centertart: 02-13-2023 End: 49-54-3976ocaospzbafObkdaz Perales Other [employer] Other Start: 32-07-1517Bybi nursing facil care/day minor complj 15 minMarcia [facility] Care CenterStart: 02-07-2023 End: 87-16-8253emkyvbzgrpZfhhqi Perales Other [employer] Other Start: 22-38-1636Ujgqwdyhu encounterMarciana Bae [facility] Centertart: 11-29-2022 End: 10-29-8702rbscmhzcriUamqxl Perales Other [employer] Other Start: 48-17-0633Qtwi nursing facil care/day minor complj 15 minJoannacia BraunUrsulaevue Care CenterStart: 08-18-2022 End: 77-30-2351jzdxueatpbFC ESE PERALESFacility:D9Fvrkw: 07-19-2022 End: 60-34-2667syyxakhbshPJ ESE PERALESFacility:C2Zuslj: 12-13-2021 End: 01-53-1959howpdgefpdBK ESE PERALESFacility:H1 Plan of Treatment DateCare ActivityDetailAuthorStart: 89-39-0441Xkldc [facility] Hospitaltart: 31-70-1067Ijtqkkiy identified in Urine by CultureUrine [facility] Payers DatePayer CategoryPayerPolicy [id number]-[id number] [id number] [id number] [id number] [id number] Social History DateTypeDetailFacilitySex Assigned At [facility] [employer] Other Tobacco smoking status NHISUnknown if ever smoked [facility] Work Phone: Start: 55-38-8137SfrNwaesp (finding)[facility] Health Systemtart: 06-31-3270Zke Assigned At [facility] Evaluation note 05-18-2023 Note Date & FpruOxkjBycxnplj68-11-0476 Evaluation note* Encounter Date Diagnosis Assessment Notes Treatment Notes Treatment Clinical Notes May, Recurrent major depr essive disorder, in partial remission (ICD-10 - F33.41) [facility] [employer] Other Evaluation note 05-16-2023 Note Date & ZenuKcuuAhgnyzok60-69-1525 Evaluation note* Encounter Date Diagnosis Assessment Notes Treatment Notes Treatment Clinical Notes May, Recurrent major depr essive disorder, in partial remission (ICD-10 - F33.41) [employer] Other Evaluation note 05-01-2023 Note Date & LftwZwkjEjnyqzaq28-85-9398 Evaluation note* Encounter Date Diagnosis Assessment Notes Treatment Notes Treatment Clinical Notes Apr, Essential (primary) hypertension (ICD-10 - I10) Continue present med Apr,Other fatigue (ICD-10 - R53.83)d/w w nursing staff. Will check for COVID and UTI Apr,Recurrent major depressive disorder, in partial remission (ICD-10 - F33.41)stable on present med [employer] Other Evaluation note 03-14-2023 Note Date & RnndUgdxDptaudvj81-82-0847 Evaluation note* Encounter Date Diagnosis Assessment Notes Treatment Notes Treatment Clinical Notes Mar, Recurrent major depr essive disorder, in partial remission (ICD-10 - F33.41) [employer] Other Evaluation note 02-13-2023 Note Date & TxjgYlicZgfbggwi72-85-0544 Evaluation note* Encounter Date Diagnosis Assessment Notes Treatment Notes Treatment Clinical Notes Feb, Essential (primary) hypertension (ICD-10 - I10) Blood pressure remains well controlled at this time. Denies cardiac symptoms. Shows no signs or symptoms or poor control. Patient to continue with above medication and we will continue to monitor. Advised to pay attention to body and symptoms. Any developing patterns. Stay well hydrated. Feb,Recurrent major depressive disorder, in partial remission (ICD-10 - F33.41)Remains stable on current therapeutic dose. Patient is encouraged to stay active and remain involved. Try to keep themselves busy. Take medication as directed and we will continue to monitor. Feb,ependent edema (ICD-10 - R60.9)Elevated legs. Reviewed medications at [place]. [facility] Other Evaluation note 11-29-2022 Note Date & IxkcWlcaAbbwdoif04-07-6437 Evaluation note* Encounter Date Diagnosis Assessment Notes Treatment Notes Treatment Clinical Notes Nov, Chronic schizoaffective disorder (ICD-10 - F25.9) stable and unchanged. Nov,AD (generalized anxiety disorder) (ICD-10 - F41.1)Unchanged with behaviors per nursing staff. Nov,Essential (primary) hypertension (ICD-10 - I10)Reviewed recent labs. Recheck in 6 months. Nov,Recurrent major depressive disorder, in partial remission (ICD-10 - F33.41)Stable on present medication Nov,ependent edema (ICD-10 - R60.9)Recently evaluated labs and they are normal overall. Continue to encourage elevation. On moderate strength diuretic. [employer] Other Evaluation note Note Date & TypeNoteFacilityEvaluation noteNo InformationNort [employer] Other Evaluation note Note Date & TypeNoteFacilityEvaluation noteNo assessment information available [facility] Work Phone: History general Narrative - Reported Note Date & TypeNoteFacilityHistory general Narrative - Reported* Type Description Date Medical History Borderline DM Medical HistoryHyperlipidsMedical HistoryHTNMedical HistoryGERDMedical History SeizuresMedical HistoryDJDSurgical Wsbjmwhilsdhcwpattp2155 [employer] Other Summary Purpose Family History No Family History Records Found Relationship Condition Age at Onset Recorded Date/T ke father Unknown Coronary artery diseaseUnknownmotherDeceasedUnknown Advance Directives No Advanced Directives Records Found Advance Directive Response Recorded Date/ Time Advance Directives No August 30 024 2:22pm Chief Complaint and Reason for Visit Chief Complaint Admit Date long term visit April 15, 2024 11:59pm long term visit May 28, 2024 1 1:59pm Unknown July 02, 2024 3:55pm Additional Source Comments INFORMATION SOURCE (unrecogn ized section and content) DATE CREATED AUTHOR 08/18/2022 [facility] DATE CREATED AUTHOR AUTHOR'S ORGANIZ ATION 12/27/2024 [facility] REASON FOR VISIT (unrecogniz ed section and content) BCCrefillBCCBCCNo Informatio nBCCNo Informationrefill Care Teams (unrecognized sec tion and content) Team Status: Active Member Role Status Dates Ese Perales MD Primary Care Provider Active Team Status: Active Member Role Status Dates Ese Perales MD Primary Care Provide r, Attending Provider Active Start: April 15, 2024 Team Status: Active Member Role Status Dates Ese Perales MD Primary Care Provide r, Attending Provider Active Start: May 28, 2024 Team Status: Inactive Member Role Status Dates Ese Perales MD Primary Care Provider Active Start: July 02, 2024 End: July 02, 2024Sumit Josue ProviderActiveStart: July 02, 2024 End: July 02, 2024 Team Status: Active Member Role Status Dates Ese Perales MD Primary Care Provider Active Start: July 02, 2024 Sumit Josue ProviderActiveStart: July 02, 2024 Goals (unrecognized section and content) Goals may be documented in a n alternate section FOR RECORDS PERTAINING TO PATIENTS WHO ARE [...] BE BASED ON THE PRIMARY CLINICAL RECORDS. [employer] [facility]. provides no warranty or guarantee of the accuracy or completeness of information in this document.
[2025-04-08 12:53] LABS: Hematocrit 41.7 % (36.0-48.0); Hemoglobin 13.2 g/dL (12.0-16.0); Immature Granulocytes Abs Auto 0.04 10^3/uL (0.00-0.03); Immature Granulocytes Pct Auto 0.4 % (0.0-0.5); Lymphocytes Absolute Auto 0.8 10^3/uL (1.2-3.8); Mean Corpuscular HGB Conc 31.7 g/dL (29.9-35.2); Mean Corpuscular Hemoglobin 32.1 pg (26.7-34.0); Mean Corpuscular Volume 101.5 fL (81.0-99.0); Platelet Count 150 10^3/uL (150-450); Red Blood Count 4.11 10^6/uL (4.20-5.40); White Blood Count 9.3 10^3/uL (4.0-11.0)
[2025-04-08 13:09] LABS: Alanine Aminotransferase 25 U/L (14-59); Albumin Globulin Ratio 1.0; Albumin Level 3.5 g/dL (3.4-5.0); Alkaline Phosphatase 91 U/L (46-116); Anion Gap 14.6; Aspartate Amino Transferase 36 U/L (15-37); Blood Urea Nitrogen 32.0 mg/dL (7.0-18.0); Calcium 10.2 mg/dL (8.5-10.1); Carbon Dioxide 26.7 mmol/L (21.0-32.0); Chloride 106 mmol/L (98-107); Estimated GFR (African America 48 (>=60 mL/min/1.73m^2); Estimated GFR (Non-African Ame 40 (>=60 mL/min/1.73m^2); Globulin 3.5 g/dL; Glucose 119 mg/dL (74-106); Potassium 4.3 mmol/L (3.5-5.1); Sodium 143 mmol/L (136-145); Total Protein 7.0 g/dL (6.4-8.2)
== END 2025-04-08 12:40 | disposition home or self-care (01) ==
LOC: LAB 12:39
PROVIDERS: PCP Family Medicine; Visit Provider Family Medicine
DX: R41.82 Altered mental status, unspecified (principal); R50.9 Fever, unspecified
CPT/HCPCS: 36415; 80053; 85025